=== PATIENT | female | born 1985 | race Caucasian/White ===

== ENCOUNTER 2020-02-02 15:15 | Outpatient (REF) | payer MEDICARE, MEDICAID, SELFPAY ==
[2020-02-02 15:36] LABS: COVID-19 Test Negative (Negative)
== END 2020-02-02 15:16 | disposition home or self-care (01) ==
LOC: HO.LAB 15:15
PROVIDERS: Visit Provider Internal Medicine
DX: Z20.828 Contact with and (suspected) exposure to other viral communicable diseases (principal)
CPT/HCPCS: 87635

== ENCOUNTER 2020-02-06 17:01 | Outpatient (REF) | payer MEDICARE, MEDICAID, SELFPAY ==
[2020-02-06 17:33] LABS: COVID-19 Test Negative (Negative)
== END 2020-02-06 17:02 | disposition home or self-care (01) ==
LOC: HO.LAB 17:01
PROVIDERS: Visit Provider Internal Medicine
DX: Z20.828 Contact with and (suspected) exposure to other viral communicable diseases (principal)
CPT/HCPCS: 87635

== ENCOUNTER 2020-09-02 15:51 | Inpatient (IN) | payer MEDICARE, MEDICAID, SELFPAY ==
[2020-09-02] VITALS (10 sets, daily range): BP systolic 117–148; BP diastolic 54–98; PULSE 90–133; RESP 18–36; TEMP 36.7–37.2; O2SAT 97–100; BMI 36.0
--- NOTE | ~2020-09-02 | XR_ITS ---
EXAMINATION: XR CHEST CLINICAL INFORMATION: Hypoxia. COMPARISON: None TECHNIQUE: 2 views of the chest were obtained. FINDINGS: The lungs are well-expanded with bandlike atelectasis in both lung bases. The upper lungs are clear. The heart size and pulmonary vascularity is normal. No gross bony abnormality seen. XR/XR chest 2V IMPRESSION: Bibasilar atelectasis.
--- NOTE | ~2020-09-02 | XR_ITS ---
EXAMINATION: XR CHEST CLINICAL INFORMATION: SOB COMPARISON: Chest 09/02/2020 TECHNIQUE: Frontal view of the chest was obtained. FINDINGS: No significant abnormality is noted involving the heart, lungs, mediastinum, bony thorax or soft tissues. XR/XR chest 1V IMPRESSION: Unremarkable chest exam.
--- NOTE | ~2020-09-02 | CT_ITS ---
EXAMINATION: CT ANGIOGRAM OF THE CHEST WITH AND WITHOUT CONTRAST (CT PULMONARY ANGIOGRAM FOR PE) CLINICAL INFORMATION: Reason for Exam sob COMPARISON: Chest x-ray 09/02/2020 TECHNIQUE: Prior to contrast administration, noncontrast localization images were obtained. Subsequently, multidetector volumetric imaging was performed from the thoracic inlet to below the diaphragms following the administration of 65 mL Omnipaque 350 intravenous contrast. No contrast reaction reported Sagittal, coronal, and MIP oblique sagittal reformatted images were obtained on the CT workstation, uploaded to PACS, and reviewed. This CT examination was performed using dose optimization techniques as appropriate, variously including the following: *Automated exposure control *Adjustment of mA and/or kV according to patient size (this includes techniques or standardized protocols for targeted exams where dose is matched to indication/reason for exam; i.e. extremities or head) *Use of iterative reconstruction technique Total exam dose-length product 472 mGy-cm FINDINGS: QUALITY OF STUDY/CONTRAST BOLUS: Satisfactory. PULMONARY ARTERIES: No central or segmental pulmonary emboli. Partially limited assessment in some areas due to motion artifact. THORACIC AORTA: No aneurysm or dissection. LUNG: Curvilinear atelectasis noted in the lower lobes. PLEURA: No pleural effusion or pneumothorax. MEDIASTINUM: The visualized thyroid gland is unremarkable. There are subcentimeter mediastinal lymph nodes within the range of normal variation. Cardiac size is within normal limits; no pericardial effusion. No evidence of septal bowing or right heart strain. CHEST WALL/AXILLA: No axillary or internal mammary lymphadenopathy. OSSEOUS STRUCTURES: No acute or suspicious osseous abnormality. UPPER ABDOMEN: Unremarkable. No reflux of contrast into the hepatic veins to suggest elevated right heart pressures. CT/CT angio chest PE protocol IMPRESSION: No pulmonary embolus identified. VTE: negative
--- NOTE | ~2020-09-02 | XR_ITS ---
EXAMINATION: XR CHEST CLINICAL INFORMATION: Cough, wheezing COMPARISON: None TECHNIQUE: 2 views of the chest were obtained. FINDINGS: Devices overlie the patient. Mild rotation toward the right. The mediastinum, shari, vasculature, lungs and visualized pleural margins are within normal limits. XR/XR chest 2V IMPRESSION: No acute chest disease.
--- NOTE | 2020-09-02 16:12 | ED_ITS ---
HPI - Asthma General Chief Complaint: Dyspnea <REBECA Rodriguez - Last Filed: 09/02/20 21:17> Stated Complaint: asthma <REBECA Rodriguez - Last Filed: 09/02/20 21:17> Time Seen by Provider: 09/02/20 16:11 <REBECA Rodriguez Last Filed: 09/02/20 21:17> Source: patient <REBECA Rodriguez Last Filed: 09/02/20 21:17> Mode of arrival: ambulatory <REBECA Rodriguez - Last Filed: 09/02/20 21:17> Limitations: no limitations <REBECA Rodriguez Last Filed: 09/02/20 21:17> History of Present Illness HPI Narrative: 35 y/o female with history of moderate persistent asthma requiring multiple hospitalizations in the past (never intubated) presents to the ER with SOB and wheezing that started yeseterday. Progressively worsening overnight. No relief with PRN albuterol inhaler at home. Has 2 children at home who are sick and they tested negative for COVID yesterday. Congested cough but unable to bring up phlegm. No fevers or chest pain. No N/V/D or abdominal pain. She is tachypenic and wheezey in triage. <REBECA Rodriguez - Last Filed: 09/02/20 21:17> MD complaint: shortness of breath and wheezing <REBECA Rodriguez - Last Filed: 09/02 21:17> Onset (ago): day(s) <REBECA Rodriguez - Last Filed: 09/02/20 21:17> Severity: moderate and similar to prior <REBECA Rodriguez - Last Filed: 09/02/20 21:17> Context: other (sick contacts) <REBECA Rodriguez Last Filed: 09/02/20 21:17> Associated symptoms: productive cough <REBECA Rodriguez Last Filed: 09/02/20 21:17> Asthma History: history of frequent attacks and history of prior ED visit <REBECA Rodriguez Last Filed: 09/02/20 21:17> Treatments Prior to Arrival: inhaled bronchodilator <REBECA Rodriguez Last Filed: 09/02/20 21:17> Related Data Current Asthma Therapy: inhaled bronchodilator <REBECA Rodriguez - Last Filed: 09/02/20 21:17> Allergies/Adverse Reactions: Allergies Allergy/AdvReac Type Severity Reaction Status Date / Time No Known Allergies Allergy Verified 09/02/20 16:10 <REBECA Rodriguez - Last Filed: 09/02/20 21:17> Review of Systems Review of Systems: Constitutional : No Weight loss, No Fever, No Chills, No Night Sweats, No Fatigue, No Malaise ENT/Mouth : No Hearing loss, No Ear Pain, No Nasal Congestion, No Sinus Pain, No Hoarseness, No sore throat, No Rhinorrhea, No Swallowing Difficulty Eyes: No Eye Pain, No Swelling, No Redness, No Foreign Body, No Discharge, No Vision Changes Cardiovascular : No Chest Pain, SOB, Dyspnea on Exertion, No Orthopnea, No Edema, No Palpitations Respiratory : Cough, No Sputum, Wheezing, No Smoke Exposure, No Dyspnea Gastrointestinal : No Nausea, No Vomiting, No Diarrhea, No Constipation, No abdominal Pain, No Hematochezia, No Melena Genitourinary : no irregular bleeding, No Dysuria, No Urinary Frequency, No Hematuria, No Urinary Incontinence, No Urgency, No Flank Pain, No Urinary Flow Changes, No Hesitancy Musculoskeletal : No joint pain, No Myalgias, No Joint Swelling Skin : No Skin Lesions, No rash Neuro : No Weakness, No Numbness, No Paresthesias, No Loss of Consciousness, No Dizziness, No Headache Psych : No Anxiety/Panic, No Depression, No SI/HI/AH/VH, No Social Issues, Heme/Lymph: No Bruising, No Bleeding,No Lymphadenopathy Endocrine : No Polyuria, No Polydipsia, No Temperature Intolerance <XANDER Williamson - Last Filed: 09/02/20 18:07> Yes all other systems are reviewed and are negative <XANDER Williamson - Last Filed: 09/02/20 18:07> [facility] Past Medical History Medical History: Medical History (Updated 09/02/20 @ 21:16 by REBECA Rodriguez) Anxiety Asthma Sleep apnea <REBECA Rodriguez - Last Filed: 09/02/20 21:17> Social History Social History: Social History Alcohol intake: never Smoking Status: Former smoker Use of substances other than those prescribed or required for medical reasons: No Advance Directives: No Advance Directives Information Provided: Yes Patient : No <REBECA Rodriguez - Last Filed: 09/02/20 21:17> Physical Exam Vital Signs: Vital Signs: Last Vital Signs Temp 98.4 F 09/02/20 19:53 Pulse 123 H 09/02/20 21:00 Resp 18 09/02/20 19:53 BP 137/64 09/02/20 19:53 Pulse Ox 99 09/02/20 19:53 Body Mass Index 36.0 <REBECA Rodriguez - Last Filed: 09/02/20 21:17> Vital Signs: Last Vital Signs Temp 98.4 F 09/02/20 19:53 Pulse 123 H 09/02/20 21:00 Resp 18 09/02/20 19:53 BP 137/64 09/02/20 19:53 Pulse Ox 99 09/02/20 19:53 Body Mass Index 36.0 <VERNA WilliamsonP-BC - Last Filed: 09/02/20 18:07> Const: General: healthy appearing, no acute distress and well developed <VERNA WilliamsonP-BC - Last Filed: 09/02/20 18:07> Nutritional Appearance: well nourished <VERNA WilliamsonP-BC - Last Filed: 09/02/20 18:07> Orientation/consciousness: patient oriented x3 <VERNA WilliamsonP-BC - Last Filed: 09/02/20 18:07> Neck: Neck: Yes normal visual inspection, Yes full ROM and Yes trachea midline <FABIANO Williamson-BC - Last Filed: 09/02/20 18:07> Thyroid: Thyroid normal <FABIANO Williamson-BC - Last Filed: 09/02/20 18:07> Resp: Auscultation: wheezes expiratory wheezes, inspiratory wheezes and scattered wheezes <VERNA WilliamsonP-BC - Last Filed: 09/02/20 18:07> Cardio: Rate: regular rate <XANDER Williamson - Last Filed: 09/02/20 18:07> Rhythm: regular rhythm <XANDER Williamson - Last Filed: 09/02/20 18:07> GI: Inspection: Yes normal to inspection and No distended <XANDER Williamson - Last Filed: 09/02/20 18:07> Palpation (GI): No hepatosplenomegaly present <XANDER Williamson - Last Filed: 09/02/20 18:07> Auscultation: normal bowel sounds <XANDER Williamson - Last Filed: 09/02/20 18:07> Skin: General skin exam: elasticity normal, turgor normal and dry skin <XANDER Williamson - Last Filed: 09/02/20 18:07> Neuro: General: patient oriented x3 <XANDER Williamson - Last Filed: 09/02/20 18:07> Course Course Course Narrative: Rapid medical examination: 35 y/o female with history of anxiety, JANETT, moderate persistent asthma, history of multiple hospitalizations (21x) for asthma exacerbations, last 4 years ago who presents with worsening SOB and wheezing that started yesterday and progressively worsened overnight. Kids are sick at home, both tested negative for COVID yesterday. She is not vaccinated. SOB and wheezing at rest with RR 26 on arrival. Coarse throughout with inspiratory wheezes throughout left lung. SpO2 100%. COVID now ordered as well as PO prednisone with plan to start albuterol neb KENNEDY. Plan per Main ED provider. <REBECA Rodriguez - Last Filed: 09/02/20 21:17> Patient examined and re-evaluated. Will change oral prednisone to Solu- Medrol. Will give patient magnesium IV and Tessalon Perles for cough. Check CBC and BMP. Her COVID test is negative. Patient will receive updraft treatment. Will re-evaluate patient after obtaining chest x-ray. <XANDER Williamson - Last Filed: 09/02/20 18:07> Reevaluation(s) Reevaluation #1: 8 pm: patient remains tachypenic with RR low 30's after 2 neb treatments. HR 120's. wheezy and coarse throughout, speaking in 4-5 word sentences with +accessory muscle use. Will give Xopenex treatment and low dose Fentanyl and reassess. She is resistant to BiPAP for a break stating she gets very anxious with it, never tolerates it and ends up pulling it off. <REBECA Rodriguez - Last Filed: 09/02/20 21:17> Address treatment finished. Patient continues to be feeling short of breath. Barking cough O2 sats 100% heart rate up to 120. Will order 2nd treatment, will monitor patient's heart rate. Patient received magnesium, Solu- Medrol and Tessalon Perles continue to monitor <XANDER Williamson - Last Filed: 09/02/20 18:07> Time: 17:25 <XANDER Williamson - Last Filed: 09/02/20 18:07> Reevaluation #2: 9pm: RR 28-30. She states she feels slightly better after Fentanyl. Lung sounds continue to be very coarse. Continued to refuse trial of BiPAP despite multiple attempts at discussing concerns of respiratory fatigue. VBG ordered to make sure she isn't starting to retain CO2. Remains AAO X3. Will give trial of Duoneb. Spoke with Dr. Vzáquez who will admit for further management. <REBECA Rodriguez - Last Filed: 09/02/20 21:17> Patient's heart rate up, she continues to cough despite getting the treatment. Respiratory treatment stopped. Will order more cough suppressant. Guaiafensin and with codeine ordered. Report given to Sahra JOSE. <XANDER Wililamson - Last Filed: 09/02/20 18:07> MDM - Asthma Lab Data Result diagrams: : 09/02/20 16:54 09/02/20 16:54 <REBECA Rodriguez - Last Filed: 09/02/20 21:17> Labs: Lab Results 09/02/20 09/02/20 09/02/20 Range/Units 16:16 16:54 16:54 WBC 8.8 (4.8-10.8) X10*3/uL RBC 4.65 (4.20-5.50) X10*6/uL Hgb 13.7 (12.0-16.0) g/dl Hct 42.1 (37-47) % MCV 90.5 (80-98) fL MCH 29.5 (27.0-33.0) pg MCHC 32.5 (31.0-35.0) g/dl RDW 12.6 (11.0-16.0) % Plt Count 245 (160-400) X10*3/uL MPV 10.7 (9.4-12.3) fL Immature Gran % (Auto) 0.5 H (0.0-0.4) % Neut % (Auto) 71.9 (45-73) % Lymph % (Auto) 15.6 L (20-40) % [place] % (Auto) 8.9 (2-11) % Eos % (Auto) 2.8 (0-4) % Baso % (Auto) 0.3 (0-2) % Lymph # (Auto) 1.4 (1.2-4.9) X10*3/uL [place] # (Auto) 0.8 (0.1-1.2) X10*3/uL Eos # (Auto) 0.3 (0.0-0.4) X10*3/uL Baso # (Auto) 0.0 (0.0-0.2) X10*3/uL Abs Immat Gran (auto) 0.04 H (0.00-0.03) X10*3/uL Absolute Neuts (auto) 6.3 (2.0-8.3) X10*3/uL Absolute Nucleated RBC 0.000 (0.0-0.012) X10*3/uL Nucleated RBC % (auto) 0.0 (0.0-0.2) /100WBC Sodium 140 (135-145) mmol/L Potassium 3.7 (3.3-5.1) mmol/L Chloride 110 H (96-108) mmol/L Carbon Dioxide 21 L (22-29) mmol/L Anion Gap 13 (12-20) BUN 12 (9-16) mg/dL Creatinine 0.84 (0.5-1.4) mg/dL Estim Creat Clear Calc 102.6 Estimated GFR > 60 Random Glucose 88 (60-115) mg/dL Calcium 9.1 (8.4-10.2) mg/dL COVID-19 (HAZEL) Negative (Negative) COVID-19 Clin Com See Note <REBECA Rodriguez - Last Filed: 09/02/20 21:17> Lab Results 09/02/20 09/02/20 09/02/20 Range/Units 16:16 16:54 16:54 WBC 8.8 (4.8-10.8) X10*3/uL RBC 4.65 (4.20-5.50) X10*6/uL Hgb 13.7 (12.0-16.0) g/dl Hct 42.1 (37-47) % MCV 90.5 (80-98) fL MCH 29.5 (27.0-33.0) pg MCHC 32.5 (31.0-35.0) g/dl RDW 12.6 (11.0-16.0) % Plt Count 245 (160-400) X10*3/uL MPV 10.7 (9.4-12.3) fL Immature Gran % (Auto) 0.5 H (0.0-0.4) % Neut % (Auto) 71.9 (45-73) % Lymph % (Auto) 15.6 L (20-40) % [place] % (Auto) 8.9 (2-11) % Eos % (Auto) 2.8 (0-4) % Baso % (Auto) 0.3 (0-2) % Lymph # (Auto) 1.4 (1.2-4.9) X10*3/uL [place] # (Auto) 0.8 (0.1-1.2) X10*3/uL Eos # (Auto) 0.3 (0.0-0.4) X10*3/uL Baso # (Auto) 0.0 (0.0-0.2) X10*3/uL Abs Immat Gran (auto) 0.04 H (0.00-0.03) X10*3/uL Absolute Neuts (auto) 6.3 (2.0-8.3) X10*3/uL Absolute Nucleated RBC 0.000 (0.0-0.012) X10*3/uL Nucleated RBC % (auto) 0.0 (0.0-0.2) /100WBC Sodium 140 (135-145) mmol/L Potassium 3.7 (3.3-5.1) mmol/L Chloride 110 H (96-108) mmol/L Carbon Dioxide 21 L (22-29) mmol/L Anion Gap 13 (12-20) BUN 12 (9-16) mg/dL Creatinine 0.84 (0.5-1.4) mg/dL Estim Creat Clear Calc 102.6 Estimated GFR > 60 Random Glucose 88 (60-115) mg/dL Calcium 9.1 (8.4-10.2) mg/dL COVID-19 (HAZEL) Negative (Negative) COVID-19 Clin Com See Note <XANDER Williamson - Last Filed: 09/02/20 18:07> Imaging Data Chest x-ray: Radiologist's impression: FINDINGS: Devices overlie the patient. Mild rotation toward the right. The mediastinum, shari, vasculature, lungs and visualized pleural margins are within normal limits. XR/XR chest 2V IMPRESSION: No acute chest disease. <XANDER Williamson - Last Filed: 09/02/20 18:07> Critical Care Time Critical Care Time Critical Care Time: Yes <REBECA Rodriguez - Last Filed: 09/02/20 21:17> Total Critical Care Time: 48 <REBECA Rodriguez - Last Filed: 09/02/20 21:17> Attestation: I attest to critical care time spent caring for this patient with severe acute asthma exacerbation, requiring multiple breathing treatments and frequent pulmonary reassessments. <REBECA Rodriguez - Last Filed: 09/02/20 21:17> Discharge Plan Discharge Clinical Impression: Asthma with exacerbation Qualifiers: Asthma severity: moderate Asthma persistence: persistent Qualified Code(s): J45.41 - Moderate persistent asthma with (acute) exacerbation <REBECA Rodriguez - Last Filed: 09/02/20 21:17> Patient Disposition: Admitted As Inpatient <REBECA Rodriguez - Last Filed: 09/02/20 21:17>
[2020-09-02 16:43] LABS: COVID-19 Test Negative (Negative)
[2020-09-02] MEDS: Albuterol Sulfate (0.083%) 2.5 MG/3 ML VIAL.NEB 10 MG INHALE ×2 (16:48→17:45)
[2020-09-02] MEDS: Magnesium Sulfate/H2O 2 GM/50 ML PIGGYBACK IV (16:59)
[2020-09-02] MEDS: methylPREDNISolone Sod Succ 125 MG/2 ML VIAL IVPUSH (16:59)
[2020-09-02] MEDS: Benzonatate 100 MG CAPSULE PO (17:00)
--- NOTE | 2020-09-02 17:05 | PC.NURSE ---
since begining pavan has had slightly decreased work of breathing but continues to use accessory muscles, has tremor, moderate air movement and audible wheezes, loose junky cough and nasal congestion. skin pwd. st on monitor. has never been intubated but multiple hospitalizations.
[2020-09-02 17:07] LABS: MANUAL DIFF FLAG NO
[2020-09-02 17:08] LABS: Basophils Percent Auto 0.3 % (0-2); Eosinophils Absolute Auto 0.3 X10*3/uL (0.0-0.4); Eosinophils Percent Auto 2.8 % (0-4); Hematocrit 42.1 % (37-47); Hemoglobin 13.7 g/dl (12.0-16.0); Imm Gran Abs Auto 0.04 X10*3/uL (0.00-0.03); Imm Gran Pct Auto 0.5 % (0.0-0.4); Lymphocytes Absolute Auto 1.4 X10*3/uL (1.2-4.9); Lymphocytes Percent Auto 15.6 % (20-40); Mean Corpuscular HGB Conc 32.5 g/dl (31.0-35.0); Mean Corpuscular Hemoglobin 29.5 pg (27.0-33.0); Mean Corpuscular Volume 90.5 fL (80-98); Mean Platelet Volume 10.7 fL (9.4-12.3); Monocytes Absolute Auto 0.8 X10*3/uL (0.1-1.2); Monocytes Percent Auto 8.9 % (2-11); Neutrophils Absolute Auto 6.3 X10*3/uL (2.0-8.3); Neutrophils Percent Auto 71.9 % (45-73); Platelet Count 245 X10*3/uL (160-400); Red Blood Count 4.65 X10*6/uL (4.20-5.50); Red Cell Distribution Width 12.6 % (11.0-16.0); White Blood Count 8.8 X10*3/uL (4.8-10.8)
[2020-09-02 17:30] LABS: Anion Gap 13 (12-20); Blood Urea Nitrogen 12 mg/dL (9-16); Calcium 9.1 mg/dL (8.4-10.2); Carbon Dioxide 21 mmol/L (22-29); Chloride 110 mmol/L (96-108); Creatinine Clr Calc Pharmacy 102.6; Estimated Glomerular Filt Rate > 60; Glucose Random 88 mg/dL (60-115); Potassium 3.7 mmol/L (3.3-5.1); Sodium 140 mmol/L (135-145)
--- NOTE | 2020-09-02 17:55 | PC.NURSE ---
During 2nd hr long treatment pt's HR climbing to 150 sinus tach on monitor. [employer]GER and at [facility] for evaluation.
[2020-09-02] MEDS: guaiFEN/Codeine SF 200/20/10ML 10 ML LIQUID PO (18:01)
--- NOTE | 2020-09-02 18:16 | PC.NURSE ---
LS continue to improve. has dry barky cough, st on monitor. alert. less accessory muscle use but still some.
--- NOTE | 2020-09-02 19:57 | PC.NURSE ---
Ambulatory to BR.. staates she's slightly better but still has tachipnea and accessory muscle use. skin pwd. spking full sentences. hoarse cough.
[2020-09-02] MEDS: fentaNYL citrate/PF 100 MCG/2 ML VIAL 25 MCG IVPUSH (20:25)
[2020-09-02] MEDS: Albuterol/Iprat 2.5/0.5MG 3 ML AMPUL.NEB INHALE (21:00)
[2020-09-02 21:19] LABS: VBG Base Excess -8.4 mmol/L; VBG HCO3 12 mmol/L (22-26); VBG pCO2 17 mmHg; VBG pH 7.45 (7.32-7.43); VBG pO2 66 mmHg
[2020-09-02 21:23] LABS: Venous Blood Gas Refer to POC result
--- NOTE | 2020-09-02 22:10 | PC.NURSE ---
only slightly better after fentanyl but continues to be in distess, bronchial hoarse cough, skin pwd. ambulatory to br with increased WOB. AWARE OF PLAN FOR ADMISSION.
[2020-09-02] MEDS: methylPREDNISolone Sod Succ 40 MG/ML VIAL IVPUSH (22:18)
[2020-09-02] MEDS: Morphine Sulfate 4 MG/ML CARTRIDGE IVPUSH (22:19)
--- NOTE | 2020-09-02 22:33 | P.HPHOSP_ITS ---
History of Present Illness Date of Service: 09/02/20 Chief Complaint: sob This is a 35-year-old female with past medical history of asthma, sleep apnea, anxiety who presents to the hospital with difficulty breathing. Patient reports that her kids have been diagnosed with an upper viral infection but have been negative for COVID about a day ago, followed by her developing shortness of breath, wheezing, coughing, congestion and congestion yesterday. She denies any fever and no chills, no chest pain, no palpitations, no headache or change in vision, no abdominal pain nausea or vomiting, no diarrhea or urinary symptoms and no lower extremity edema. On arrival to the ED patient vitals significant for temp of 98.9?, heart rate of 109, respiratory rate of 26, blood pressure of 148/98, satting 99% on room air Labs are significant for pH of 7.45, pCO2 of 17, chloride of 110, bicarb of 21, labs otherwise unremarkable. Chest CT angiogram negative for PE, and no evidence of pneumonia Past medical history as belong confirmed with patient Review of Systems 2 Review of Systems: Yes all other systems are reviewed and are negative [facility] Medical History Anxiety Asthma Sleep apnea Social History Household Members: Significant Other and Children Housing: Apartment Do you presently have visiting nurse or other home services: No Alcohol intake: never Smoking Status: Former smoker Use of substances other than those prescribed or required for medical reasons: No Have you been hit, kicked, punched, or otherwise hurt by someone within the past year? If so, by whom?: No Do you feel safe in your current relationship?: Yes Is there a partner from a previous relationship who is making you feel unsafe now?: No Are you made to feel afraid or neglected: No Advance Directives: No Advance Directives Information Provided: Yes Do you have thoughts of harming others: None Do you have a plan to hurt others: No Plan Recently lost weight without trying: No Nutrition Risks: No Nutritional Risk Patient : No Meds Allergies Allergy/AdvReac Type Severity Reaction Status Date / Time No Known Allergies Allergy Verified 09/02/20 16:10 Active Medications: Current Medications Generic Name Dose Route Start Last Admin Trade Name Freq PRN Reason Stop Dose Admin Albuterol/Ipratropium 3 ml 09/03/20 08:00 Albuterol/Iprat 2.5/0.5mg 3 Ml Ampul.Neb INHALE RQ4H WHILE AWAKE DONELL Albuterol/Ipratropium 3 ml 09/02/20 21:59 Albuterol/Iprat 2.5/0.5mg 3 Ml Ampul.Neb INHALE Q4H PRN Shortness of Breath/Wheezing Guaifenesin/Dextromethorphan 5 ml 09/02/20 21:59 Guaifenesin Dm 100/10/5 Ml 5 Ml Syrup PO Q4H PRN Cough Methylprednisolone Sodium Succinate 40 mg 09/02/20 22:00 09/02/20 22:18 Methylprednisolone Sod Succ 40 Mg/Ml Vial IVPUSH 40 mg Q12H DONELL Administration Home Medications Medication Instructions Recorded Confirmed Last Taken Type L norgest/e.estradiol-e.estrad 1 tab PO DAILY 09/02/20 09/02/20 09/01/20 History [Amethia] albuterol sulfate 2 puff INHALATION QID PRN 09/02/20 09/02/20 09/01/20 History hydroxyzine HCl 1 tab PO TID 09/02/20 09/02/20 09/01/20 History sertraline 1.5 tab PO DAILY 09/02/20 09/02/20 09/01/20 History Physical Exam Vital Signs and Narrative: Vital Signs: Last Vital Signs Temp 98.2 F 09/02/20 22:16 Pulse 112 H 09/02/20 22:16 Resp 33 H 09/02/20 22:16 BP 127/54 L 09/02/20 22:16 Pulse Ox 98 09/02/20 22:16 Body Mass Index 36.0 Const: General: cooperative and no acute distress Orientation/consciou sness: patient oriented x3 Eyes: General: appearance normal, both eyes and all related structures Resp: Other: Significantly tachypneic in the 30s, using accessory muscles to talk Effort & Inspection: abnormal respiratory pattern and Actively coughing Auscultation: wheezes Cardio: Rate: regular rate Rhythm: regular rhythm GI: Palpation (GI): Soft to palpation Auscultation: normal bowel sounds Skin: General skin exam: no rashes or lesions noted Neuro: General: patient oriented x3 Cognition (Neuro): normal cognition Extrem: General: Yes normal to inspection and Yes no pedal edema Results Labs CBC and Chem 7: 09/02/20 16:54 09/02/20 16:54 Labs: Laboratory Results - last 24 hr 09/02/20 09/02/20 09/02/20 16:16 16:54 16:54 MCV 90.5 MCH 29.5 MCHC 32.5 RDW 12.6 Plt Count 245 MPV 10.7 Immature Gran % (Auto) 0.5 H Neut % (Auto) 71.9 Lymph % (Auto) 15.6 L [place] % (Auto) 8.9 Eos % (Auto) 2.8 Baso % (Auto) 0.3 Lymph # (Auto) 1.4 [place] # (Auto) 0.8 Eos # (Auto) 0.3 Baso # (Auto) 0.0 Abs Immat Gran (auto) 0.04 H Absolute Neuts (auto) 6.3 Absolute Nucleated RBC 0.000 Nucleated RBC % (auto) 0.0 VBG pH VBG pCO2 VBG pO2 VBG HCO3 VBG O2 Saturation VBG Base Excess Anion Gap 13 Estim Creat Clear Calc 102.6 Estimated GFR > 60 Random Glucose 88 Calcium 9.1 COVID-19 (HAZEL) Negative COVID-19 Clin Com See Note 09/02/20 21:11 MCV MCH MCHC RDW Plt Count MPV Immature Gran % (Auto) Neut % (Auto) Lymph % (Auto) [place] % (Auto) Eos % (Auto) Baso % (Auto) Lymph # (Auto) [place] # (Auto) Eos # (Auto) Baso # (Auto) Abs Immat Gran (auto) Absolute Neuts (auto) Absolute Nucleated RBC Nucleated RBC % (auto) VBG pH 7.45 H VBG pCO2 17 VBG pO2 66 VBG HCO3 12 L VBG O2 Saturation 92.0 VBG Base Excess -8.4 Anion Gap Estim Creat Clear Calc Estimated GFR Random Glucose Calcium COVID-19 (HAZEL) COVID-19 Clin Com Imaging Radiologist's Impressions: Impressions Chest X-Ray 09/02/20 16:11 IMPRESSION: No acute chest disease. Assessment and Plan (1) Asthma with exacerbation: Qualifiers: Asthma persistence: persistent Asthma severity: moderate Qualified Code(s): J45.41 - Moderate persistent asthma with (acute) exacerbation Status: Acute This is a 35-year-old female with past medical history of asthma who presents to the hospital with wheezing and difficulty breathing # asthma exacerbation - most likely secondary to viral infection given her 2 kids have been recently diagnosed - will start on IV Solu-Medrol, DuoNeb p.r.n. and q.i.d. - monitor respiratory status - currently not requiring any oxygen # anxiety - continue hydroxyzine and sertraline # obstructive sleep apnea - does not use CPAP DVT prophylaxis:lovenox
[2020-09-03] VITALS (11 sets, daily range): BP systolic 103–137; BP diastolic 51–67; PULSE 76–101; RESP 16–34; TEMP 36.3–36.7; O2SAT 95–99
[2020-09-03 00:12] LABS: D Dimer 518 NG/ML
[2020-09-03] MEDS: iohexoL 350 MG/ML 100 ML INFUS..BTL 65 ML IV (01:23)
[2020-09-03] MEDS: guaiFENesin DM 100/10/5 ML 5 ML SYRUP PO ×3 (01:27→17:23)
[2020-09-03] MEDS: Albuterol Sulfate (0.083%) 2.5 MG/3 ML VIAL.NEB INHALE (01:46)
[2020-09-03] MEDS: 0.9 % Sodium Chloride Flush 3 ML SYRINGE IVFLUSH ×3 (02:55→17:19)
[2020-09-03] MEDS: Enoxaparin Sodium 40 MG/0.4 ML SYRINGE SUBCUT (03:08)
[2020-09-03] MEDS: diphenhydrAMINE HCL 50 MG/ML VIAL 25 MG IVPUSH (04:04)
[2020-09-03 07:15] LABS: MANUAL DIFF FLAG NO
[2020-09-03 07:26] LABS: Basophils Percent Auto 0.1 % (0-2); Eosinophils Percent Auto 0.1 % (0-4); Hematocrit 38.9 % (37-47); Hemoglobin 12.5 g/dl (12.0-16.0); Imm Gran Abs Auto 0.09 X10*3/uL (0.00-0.03); Lymphocytes Absolute Auto 0.7 X10*3/uL (1.2-4.9); Lymphocytes Percent Auto 7.7 % (20-40); Mean Corpuscular HGB Conc 32.1 g/dl (31.0-35.0); Mean Corpuscular Hemoglobin 29.3 pg (27.0-33.0); Mean Corpuscular Volume 91.3 fL (80-98); Mean Platelet Volume 10.9 fL (9.4-12.3); Monocytes Absolute Auto 0.2 X10*3/uL (0.1-1.2); Monocytes Percent Auto 2.5 % (2-11); Neutrophils Percent Auto 88.6 % (45-73); Platelet Count 264 X10*3/uL (160-400); Red Blood Count 4.26 X10*6/uL (4.20-5.50); Red Cell Distribution Width 12.9 % (11.0-16.0); White Blood Count 9.1 X10*3/uL (4.8-10.8)
[2020-09-03] MEDS: Albuterol/Iprat 2.5/0.5MG 3 ML AMPUL.NEB INHALE ×4 (07:39→20:04)
[2020-09-03 08:12] LABS: Anion Gap 14 (12-20); Blood Urea Nitrogen 8 mg/dL (9-16); Calcium 8.6 mg/dL (8.4-10.2); Carbon Dioxide 16 mmol/L (22-29); Chloride 111 mmol/L (96-108); Creatinine Clr Calc Pharmacy 118.1; Estimated Glomerular Filt Rate > 60; Glucose Random 160 mg/dL (60-115); Sodium 137 mmol/L (135-145)
--- NOTE | 2020-09-03 08:57 | MHC.CM.PN ---
PATIENT IS INDEPENDENT WITH HER ADLS. NO DME FOR AMBULATION; HOWEVER, SHE DOES HAVE INHALERS AND NEBULIZER. SHE IS HOPING TO BE ABLE TO RETURN HOME WITH NO NEED FOR SERVICES. SIGNIFICANT OTHER (IN ROOM) WILL PROVIDE TRANSPORT AT TIME OF DC. CASE MANAGEMENT TO RETURN FOR COMPLETION OF HCP DOCUMENTATION
[2020-09-03] MEDS: methylPREDNISolone Sod Succ 40 MG/ML VIAL IVPUSH ×2 (09:31→21:01)
[2020-09-03] MEDS: hydrOXYzine HCL 25 MG TABLET PO ×3 (09:33→21:02)
[2020-09-03] MEDS: Sertraline HCL 50 MG TABLET 75 MG PO (09:34)
[2020-09-03] MEDS: Acetaminophen 325 MG TABLET 650 MG PO ×2 (09:39→17:24)
--- NOTE | 2020-09-03 14:13 | HO.PM.IMPN ---
Subjective Subjective Date of Service: 09/03/20 <Migdalia Rivera NP - Last Filed: 09/03/20 14:18> 09/04/20 <Jose Bennett MD - Last Filed: 09/04/20 08:29> Interval History: Follow up asthma exacerbation Still with wheezing and dry cough <Migdalia Rivera NP - Last Filed: 09/03/20 14:18> Physical Exam Vital Signs: Vital Signs: Last Vital Signs Temp 97.5 F 09/03/20 11:55 Pulse 83 09/03/20 11:55 Resp 22 H 09/03/20 11:55 BP 134/67 09/03/20 11:55 Pulse Ox 97 09/03/20 11:55 Body Mass Index 36.0 <Migdalia Rivera NP - Last Filed: 09/03/20 14:18> Appearing in no acute distress lung sounds insp wheezing heart regular rate rhythm, clear S1, S2 positive bowel sounds, abdomen is soft, nontender neuro patient is alert x3, no focal deficits <Migdalia Rivera NP - Last Filed: 09/03/20 14:18> Objective Data Current Medications Generic Name Dose Route Start Last Admin Trade Name Freq PRN Reason Stop Dose Admin Acetaminophen 650 mg 09/03/20 01:51 09/03/20 09:39 Acetaminophen 325 Mg Tablet PO 650 mg Q6H PRN Administration Pain, Mild (Pain Scale 1-3) Albuterol Sulfate 2 puff 09/03/20 01:51 Albuterol Sulfate 90 Mcg 8 Gm Inhaler INHALE RQID PRN wheezing Albuterol/Ipratropium 3 ml 09/03/20 08:00 09/03/20 11:31 Albuterol/Iprat 2.5/0.5mg 3 Ml Ampul.Neb INHALE 3 ml RQ4H WHILE AWAKE DONELL Administration Albuterol/Ipratropium 3 ml 09/02/20 21:59 Albuterol/Iprat 2.5/0.5mg 3 Ml Ampul.Neb INHALE Q4H PRN Shortness of Breath/Wheezing Docusate Sodium 100 mg 09/03/20 01:51 Docusate Sodium 100 Mg Capsule PO DAILY PRN Constipation Enoxaparin Sodium 40 mg 09/03/20 03:00 09/03/20 03:08 Enoxaparin Sodium 40 Mg/0.4 Ml Syringe SUBCUT 40 mg Q24H DONELL Administration Guaifenesin/Dextromethorphan 5 ml 09/02/20 21:59 09/03/20 09:38 Guaifenesin Dm 100/10/5 Ml 5 Ml Syrup PO 5 ml Q4H PRN Administration Cough Hydroxyzine HCl 25 mg 09/03/20 09:00 09/03/20 09:33 Hydroxyzine Hcl 25 Mg Tablet PO 25 mg TID DONELL Administration Methylprednisolone Sodium Succinate 40 mg 09/02/20 22:00 09/03/20 09:31 Methylprednisolone Sod Succ 40 Mg/Ml Vial IVPUSH 40 mg Q12H DONELL Administration Ondansetron HCl 4 mg 09/03/20 01:51 Ondansetron Hcl 4 Mg/2 Ml Vial IVPUSH Q8H PRN Nausea and Vomiting Sertraline HCl 75 mg 09/03/20 09:00 09/03/20 09:34 Sertraline Hcl 50 Mg Tablet PO 75 mg DAILY DONELL Administration Sodium Chloride 3 ml 09/03/20 01:51 09/03/20 09:32 0.9 % Sodium Chloride Flush 3 Ml Syringe IVFLUSH 3 ml QSHIFT DONELL Administration <Migdalia Rivera NP - Last Filed: 09/03/20 14:18> Labs CBC & Chem 7: : 09/03/20 06:48 09/03/20 06:48 <Migdalia Rivera NP - Last Filed: 09/03/20 14:18> Assessment and Plan (1) Asthma with exacerbation: Status: Acute <Migdalia Rivera NP - Last Filed: 09/03/20 14:18> Assessment and Plan: 35-year-old female with past medical history of asthma who presents to the hospital with wheezing and difficulty breathing Asthma exacerbation. Most likely secondary to viral infection given her 2 kids have been recently diagnosed - Continue IV Solu-Medrol, DuoNeb p.r.n. and q.i.d. - oxygen supplementation as needed Anxiety - continue hydroxyzine and sertraline Obstructive sleep apnea - does not use CPAP DVT prophylaxis with Lovenox Attending: Dr. Bennett Full code <Migdalia Rivera NP - Last Filed: 09/03/20 14:18>
[2020-09-03] MEDS: traMADoL HCL 50 MG TABLET 25 MG PO (22:08)
[2020-09-03] MEDS: Melatonin 3 MG TABLET 6 MG PO (22:09)
[2020-09-04] VITALS (11 sets, daily range): BP systolic 108–138; BP diastolic 61–84; PULSE 68–89; RESP 16–18; TEMP 36.1–36.6; O2SAT 92–100
[2020-09-04] MEDS: 0.9 % Sodium Chloride Flush 3 ML SYRINGE IVFLUSH ×4 (02:18→23:58)
[2020-09-04] MEDS: Enoxaparin Sodium 40 MG/0.4 ML SYRINGE SUBCUT (02:18)
[2020-09-04] MEDS: guaiFENesin DM 100/10/5 ML 5 ML SYRUP PO ×3 (02:19→20:08)
[2020-09-04] MEDS: Albuterol/Iprat 2.5/0.5MG 3 ML AMPUL.NEB INHALE ×4 (07:34→20:13)
[2020-09-04] MEDS: hydrOXYzine HCL 25 MG TABLET PO ×3 (08:22→20:03)
[2020-09-04] MEDS: Sertraline HCL 50 MG TABLET 75 MG PO (08:22)
[2020-09-04] MEDS: methylPREDNISolone Sod Succ 40 MG/ML VIAL IVPUSH ×2 (08:25→20:03)
[2020-09-04] MEDS: Acetaminophen 325 MG TABLET 650 MG PO ×2 (09:19→20:08)
--- NOTE | 2020-09-04 10:49 | HO.PM.IMPN ---
Subjective Subjective Date of Service: 09/04/20 Interval History: Follow up asthma exacerbation Still with wheezing and dry cough Physical Exam Vital Signs: Vital Signs: Last Vital Signs Temp 97.4 F 09/04/20 07:55 Pulse 75 09/04/20 07:55 Resp 18 09/04/20 07:55 BP 138/73 09/04/20 07:55 Pulse Ox 92 09/04/20 07:55 Body Mass Index 36.0 Appearing in no acute distress lung sounds exp wheezing heart regular rate rhythm, clear S1, S2 positive bowel sounds, abdomen is soft, nontender neuro patient is alert x3, no focal deficits Objective Data Current Medications Generic Name Dose Route Start Last Admin Trade Name Freq PRN Reason Stop Dose Admin Acetaminophen 650 mg 09/03/20 01:51 09/04/20 09:19 Acetaminophen 325 Mg Tablet PO 650 mg Q6H PRN Administration Pain, Mild (Pain Scale 1-3) Albuterol Sulfate 2 puff 09/03/20 01:51 Albuterol Sulfate 90 Mcg 8 Gm Inhaler INHALE RQID PRN wheezing Albuterol/Ipratropium 3 ml 09/03/20 08:00 09/04/20 07:34 Albuterol/Iprat 2.5/0.5mg 3 Ml Ampul.Neb INHALE 3 ml RQ4H WHILE AWAKE DONELL Administration Albuterol/Ipratropium 3 ml 09/02/20 21:59 Albuterol/Iprat 2.5/0.5mg 3 Ml Ampul.Neb INHALE Q4H PRN Shortness of Breath/Wheezing Docusate Sodium 100 mg 09/03/20 01:51 Docusate Sodium 100 Mg Capsule PO DAILY PRN Constipation Enoxaparin Sodium 40 mg 09/03/20 03:00 09/04/20 02:18 Enoxaparin Sodium 40 Mg/0.4 Ml Syringe SUBCUT 40 mg Q24H DONELL Administration Guaifenesin/Dextromethorphan 5 ml 09/02/20 21:59 09/04/20 02:19 Guaifenesin Dm 100/10/5 Ml 5 Ml Syrup PO 5 ml Q4H PRN Administration Cough Hydroxyzine HCl 25 mg 09/03/20 09:00 09/04/20 08:22 Hydroxyzine Hcl 25 Mg Tablet PO 25 mg TID DONELL Administration Melatonin 6 mg 09/03/20 21:18 09/03/20 22:09 Melatonin 3 Mg Tablet PO 6 mg BEDTIME PRN Administration Insomnia Methylprednisolone Sodium Succinate 40 mg 09/02/20 22:00 09/04/20 08:25 Methylprednisolone Sod Succ 40 Mg/Ml Vial IVPUSH 40 mg Q12H DONELL Administration Ondansetron HCl 4 mg 09/03/20 01:51 Ondansetron Hcl 4 Mg/2 Ml Vial IVPUSH Q8H PRN Nausea and Vomiting Sertraline HCl 75 mg 09/03/20 09:00 09/04/20 08:22 Sertraline Hcl 50 Mg Tablet PO 75 mg DAILY DONELL Administration Sodium Chloride 3 ml 09/03/20 01:51 09/04/20 08:25 0.9 % Sodium Chloride Flush 3 Ml Syringe IVFLUSH 3 ml QSHIFT DONELL Administration Labs CBC & Chem 7: 09/03/20 06:48 09/03/20 06:48 Assessment and Plan (1) Asthma with exacerbation: Status: Acute Assessment and Plan: 35-year-old female with past medical history of asthma who presents to the hospital with wheezing and difficulty breathing Asthma exacerbation. Most likely secondary to viral infection given her 2 kids have been recently diagnosed Still with tightness and wheezing requiring IV steroids and scheduled albuterol - Continue IV Solu-Medrol, DuoNeb p.r.n. and q.i.d. - oxygen supplementation as needed Anxiety - continue hydroxyzine and sertraline Obstructive sleep apnea - does not use CPAP DISPO: Likely home tomorrow when medically stable. DVT prophylaxis with Lovenox Attending: Dr. Bennett Full code
--- NOTE | 2020-09-04 14:43 | MHC.CM.PN ---
PER PHYSICIAN ROUNDS, FARZANA EXPECTED TO RETURN HOME TOMORROW (09/05/20). PLAN IS STILL HOME NO SERVICES.
[2020-09-04] MEDS: Melatonin 3 MG TABLET 6 MG PO (20:07)
[2020-09-05] VITALS (9 sets, daily range): BP systolic 127–140; BP diastolic 69–75; PULSE 73–94; RESP 16–26; TEMP 36.2–36.5; O2SAT 90–94
[2020-09-05] MEDS: Albuterol/Iprat 2.5/0.5MG 3 ML AMPUL.NEB INHALE ×4 (07:25→20:26)
[2020-09-05] MEDS: hydrOXYzine HCL 25 MG TABLET PO ×3 (08:15→19:52)
[2020-09-05] MEDS: Sertraline HCL 50 MG TABLET 75 MG PO (08:17)
[2020-09-05] MEDS: 0.9 % Sodium Chloride Flush 3 ML SYRINGE IVFLUSH ×3 (08:17→19:52)
[2020-09-05] MEDS: methylPREDNISolone Sod Succ 40 MG/ML VIAL IVPUSH ×3 (08:17→19:51)
[2020-09-05] MEDS: Docusate Sodium 100 MG CAPSULE PO (08:23)
[2020-09-05] MEDS: Acetaminophen 325 MG TABLET 650 MG PO ×2 (08:23→14:33)
[2020-09-05] MEDS: guaiFENesin DM 100/10/5 ML 5 ML SYRUP PO ×2 (08:23→19:52)
[2020-09-05] MEDS: polyethylene glycoL 3350 17 GM POWD.PACK PO (08:26)
--- NOTE | 2020-09-05 10:15 | HO.PM.IMPN ---
Subjective Subjective Date of Service: 09/05/20 <Migdalia Rivera NP - Last Filed: 09/05/20 10:18> 09/05/20 <Tristin Callejas MD - Last Filed: 09/05/20 16:25> Interval History: Follow up asthma exacerbation Still with wheezing, dry cough and tightness <Migdalia Rivera NP - Last Filed: 09/05/20 10:18> Physical Exam Vital Signs: Vital Signs: Last Vital Signs Temp 97.2 F 09/05/20 07:49 Pulse 83 09/05/20 07:49 Resp 16 09/05/20 07:49 BP 127/69 09/05/20 07:49 Pulse Ox 92 09/05/20 07:49 Body Mass Index 36.0 <Migdalia Rivera NP - Last Filed: 09/05/20 10:18> Appearing in no acute distress lung sounds insp and exp wheezing heart regular rate rhythm, clear S1, S2 positive bowel sounds, abdomen is soft, nontender neuro patient is alert x3, no focal deficits <Migdalia Rivera NP - Last Filed: 09/05/20 10:18> Objective Data Current Medications Generic Name Dose Route Start Last Admin Trade Name Freq PRN Reason Stop Dose Admin Acetaminophen 650 mg 09/03/20 01:51 09/05/20 08:23 Acetaminophen 325 Mg Tablet PO 650 mg Q6H PRN Administration Pain, Mild (Pain Scale 1-3) Albuterol Sulfate 2 puff 09/03/20 01:51 Albuterol Sulfate 90 Mcg 8 Gm Inhaler INHALE RQID PRN wheezing Albuterol/Ipratropium 3 ml 09/03/20 08:00 09/05/20 07:25 Albuterol/Iprat 2.5/0.5mg 3 Ml Ampul.Neb INHALE 3 ml RQ4H WHILE AWAKE DONELL Administration Albuterol/Ipratropium 3 ml 09/02/20 21:59 Albuterol/Iprat 2.5/0.5mg 3 Ml Ampul.Neb INHALE Q4H PRN Shortness of Breath/Wheezing Azithromycin 500 mg 09/05/20 10:15 Azithromycin 500 Mg Tablet PO Q24H DONELL Docusate Sodium 100 mg 09/03/20 01:51 09/05/20 08:23 Docusate Sodium 100 Mg Capsule PO 100 mg DAILY PRN Administration Constipation Enoxaparin Sodium 40 mg 09/03/20 03:00 09/04/20 23:58 Enoxaparin Sodium 40 Mg/0.4 Ml Syringe SUBCUT Not Given Q24H DONELL Guaifenesin 600 mg 09/05/20 10:15 Guaifenesin [place] 600 Mg Tab.Er.12h PO BID DONELL Guaifenesin/Dextromethorphan 5 ml 09/02/20 21:59 09/05/20 08:23 Guaifenesin Dm 100/10/5 Ml 5 Ml Syrup PO 5 ml Q4H PRN Administration Cough Hydroxyzine HCl 25 mg 09/03/20 09:00 09/05/20 08:15 Hydroxyzine Hcl 25 Mg Tablet PO 25 mg TID DONELL Administration Melatonin 6 mg 09/03/20 21:18 09/04/20 20:07 Melatonin 3 Mg Tablet PO 6 mg BEDTIME PRN Administration Insomnia Methylprednisolone Sodium Succinate 40 mg 09/05/20 09:00 09/05/20 08:27 Methylprednisolone Sod Succ 40 Mg/Ml Vial IVPUSH Not Given TID DONELL Ondansetron HCl 4 mg 09/03/20 01:51 Ondansetron Hcl 4 Mg/2 Ml Vial IVPUSH Q8H PRN Nausea and Vomiting Polyethylene Glycol 17 gm 09/05/20 09:00 09/05/20 08:26 Polyethylene Glycol 3350 17 Gm Powd.Pack PO 17 gm DAILY DONELL Administration Sertraline HCl 75 mg 09/03/20 09:00 09/05/20 08:17 Sertraline Hcl 50 Mg Tablet PO 75 mg DAILY DONELL Administration Sodium Chloride 3 ml 09/03/20 01:51 09/05/20 08:17 0.9 % Sodium Chloride Flush 3 Ml Syringe IVFLUSH 3 ml QSHIFT DONELL Administration <Migdalia Rivera NP - Last Filed: 09/05/20 10:18> Labs CBC & Chem 7: : 09/03/20 06:48 09/03/20 06:48 <Migdalia Rivera NP - Last Filed: 09/05/20 10:18> Assessment and Plan (1) Asthma with exacerbation: Status: Acute <Migdalia Rivera NP - Last Filed: 09/05/20 10:18> Assessment and Plan: 35-year-old female with past medical history of asthma who presents to the hospital with wheezing and difficulty breathing Asthma exacerbation. Most likely secondary to viral infection given her 2 kids have been recently diagnosed Still with tightness and wheezing requiring IV steroids and scheduled albuterol Somewhat better but still with insp and exp wheezing - increase IV Solu-Medrol to TID, DuoNeb p.r.n. and q.i.d. - negative cxr for consolidation - add azithromax, claritin and mucinex for dry cough - oxygen supplementation as needed Anxiety - continue hydroxyzine and sertraline Obstructive sleep apnea - does not use CPAP DISPO: Likely home tomorrow when medically stable. DVT prophylaxis with Lovenox Attending: Dr. Bennett Full code <Migdalia Rivera NP - Last Filed: 09/05/20 10:18>
[2020-09-05] MEDS: Loratadine 10 MG TABLET PO (11:29)
[2020-09-05] MEDS: Azithromycin 500 MG TABLET PO (11:29)
[2020-09-05] MEDS: guaiFENesin LA 600 MG TAB.ER.12H PO ×2 (11:30→19:51)
[2020-09-05] MEDS: Ibuprofen 400 MG TABLET PO (16:53)
[2020-09-05] MEDS: Melatonin 3 MG TABLET 6 MG PO (19:51)
[2020-09-06] VITALS (11 sets, daily range): BP systolic 116–139; BP diastolic 66–79; PULSE 72–89; RESP 15–20; TEMP 36.1–36.3; O2SAT 90–93
[2020-09-06] MEDS: Albuterol/Iprat 2.5/0.5MG 3 ML AMPUL.NEB INHALE ×4 (07:27→19:50)
[2020-09-06] MEDS: Sertraline HCL 50 MG TABLET 75 MG PO (08:42)
[2020-09-06] MEDS: Ibuprofen 400 MG TABLET PO ×2 (08:42→20:43)
[2020-09-06] MEDS: guaiFENesin LA 600 MG TAB.ER.12H PO (08:42)
[2020-09-06] MEDS: Azithromycin 500 MG TABLET PO (08:43)
[2020-09-06] MEDS: Loratadine 10 MG TABLET PO (08:43)
[2020-09-06] MEDS: hydrOXYzine HCL 25 MG TABLET PO ×3 (08:43→20:37)
[2020-09-06] MEDS: methylPREDNISolone Sod Succ 40 MG/ML VIAL IVPUSH (08:43)
[2020-09-06] MEDS: polyethylene glycoL 3350 17 GM POWD.PACK PO (08:43)
[2020-09-06] MEDS: 0.9 % Sodium Chloride Flush 3 ML SYRINGE IVFLUSH ×2 (08:44→15:55)
--- NOTE | 2020-09-06 11:01 | P.PNIM_ITS ---
Subjective Subjective Date of Service: 09/06/20 Interval History: Patient feeling better less short of breath, but still does not feel close to her baseline with persistent shortness of breath worse with activity, dry cough, denies allergy symptoms no recent travel, no new pets. 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 Neck no JVD. CVS regular rate rhythm, Respiratory lungs bilateral expiratory wheeze,and rhonchi. No use of accessory muscles. Gastrointestinal abdomen soft, nontender, bowel sounds audible, no guarding , no rigidity. Extremities no edema. Neuro nonfocal ,speech clear. Skin no rash Objective Data Current Medications Generic Name Dose Route Start Last Admin Trade Name Freq PRN Reason Stop Dose Admin Acetaminophen 650 mg 09/03/20 01:51 09/05/20 14:33 Acetaminophen 325 Mg Tablet PO 650 mg Q6H PRN Administration Pain, Mild (Pain Scale 1-3) Albuterol Sulfate 2 puff 09/03/20 01:51 Albuterol Sulfate 90 Mcg 8 Gm Inhaler INHALE RQID PRN wheezing Albuterol/Ipratropium 3 ml 09/03/20 08:00 09/06/20 07:27 Albuterol/Iprat 2.5/0.5mg 3 Ml Ampul.Neb INHALE 3 ml RQ4H WHILE AWAKE DONELL Administration Albuterol/Ipratropium 3 ml 09/02/20 21:59 Albuterol/Iprat 2.5/0.5mg 3 Ml Ampul.Neb INHALE Q4H PRN Shortness of Breath/Wheezing Azithromycin 500 mg 09/05/20 10:15 09/06/20 08:43 Azithromycin 500 Mg Tablet PO 500 mg Q24H DONELL Administration Docusate Sodium 100 mg 09/03/20 01:51 09/05/20 08:23 Docusate Sodium 100 Mg Capsule PO 100 mg DAILY PRN Administration Constipation Enoxaparin Sodium 40 mg 09/03/20 03:00 09/05/20 19:57 Enoxaparin Sodium 40 Mg/0.4 Ml Syringe SUBCUT Not Given Q24H DONELL Guaifenesin 600 mg 09/05/20 10:15 09/06/20 08:42 Guaifenesin La 600 Mg Tab.Er.12h PO 600 mg BID DONELL Administration Guaifenesin/Dextromethorphan 5 ml 09/02/20 21:59 09/05/20 19:52 Guaifenesin Dm 100/10/5 Ml 5 Ml Syrup PO 5 ml Q4H PRN Administration Cough Hydroxyzine HCl 25 mg 09/03/20 09:00 09/06/20 08:43 Hydroxyzine Hcl 25 Mg Tablet PO 25 mg TID DONELL Administration Ibuprofen 400 mg 09/05/20 15:12 09/06/20 08:42 Ibuprofen 400 Mg Tablet PO 400 mg Q6H PRN Administration Headache Loratadine 10 mg 09/05/20 11:00 09/06/20 08:43 Loratadine 10 Mg Tablet PO 10 mg DAILY DONELL Administration Melatonin 6 mg 09/03/20 21:18 09/05/20 19:51 Melatonin 3 Mg Tablet PO 6 mg BEDTIME PRN Administration Insomnia Methylprednisolone Sodium Succinate 40 mg 09/05/20 09:00 09/06/20 08:43 Methylprednisolone Sod Succ 40 Mg/Ml Vial IVPUSH 40 mg TID DONELL Administration Ondansetron HCl 4 mg 09/03/20 01:51 Ondansetron Hcl 4 Mg/2 Ml Vial IVPUSH Q8H PRN Nausea and Vomiting Polyethylene Glycol 17 gm 09/05/20 09:00 09/06/20 08:43 Polyethylene Glycol 3350 17 Gm Powd.Pack PO 17 gm DAILY DONELL Administration Sertraline HCl 75 mg 09/03/20 09:00 09/06/20 08:42 Sertraline Hcl 50 Mg Tablet PO 75 mg DAILY DONELL Administration Sodium Chloride 3 ml 09/03/20 01:51 09/06/20 08:44 0.9 % Sodium Chloride Flush 3 Ml Syringe IVFLUSH 3 ml QSHIFT DONELL Administration Labs CBC & Chem 7: 09/03/20 06:48 09/03/20 06:48 Assessment and Plan (1) Asthma with exacerbation: Status: Acute Assessment and Plan: 35-year-old female with past medical history of asthma who presents to the [facility] with wheezing and difficulty breathing Acute Asthma exacerbation. Still with tightness and wheezing will continue IV steroids 24 more hours increase dosage, and scheduled and as needed albuterol Chest x-ray showed no consolidation, continue azithromycin to decrease inflammation, continue Claritin and cough medication Encourage out of bed to chair, does not use home inhalers regularly at home last asthma exacerbation 4 years ago Anxiety continue hydroxyzine and sertraline Obstructive sleep apnea does not use CPAP Obesity contributing to obstructive sleep apnea as long recommend to follow low- calorie diet DISPO: Likely home tomorrow when medically stable. DVT prophylaxis with Lovenox
--- NOTE | 2020-09-06 11:28 | MHC.CM.PN ---
PATIENT STILL SOB AND REQUIRING ONE MORE DAY OF IV SOLUMEDROL AND LIKELY RETURN HOME Thursday09/07/20
[2020-09-06] MEDS: methylPREDNISolone Sod Succ 125 MG/2 ML VIAL 60 MG IVPUSH ×2 (14:16→20:37)
[2020-09-06] MEDS: Acetaminophen 325 MG TABLET 650 MG PO (14:19)
[2020-09-06] MEDS: Melatonin 3 MG TABLET 6 MG PO (20:43)
[2020-09-07] VITALS (10 sets, daily range): BP systolic 117–138; BP diastolic 60–82; PULSE 68–104; RESP 18–20; TEMP 36.2–37.1; O2SAT 91–94
[2020-09-07] MEDS: 0.9 % Sodium Chloride Flush 3 ML SYRINGE IVFLUSH ×4 (01:19→20:50)
[2020-09-07 07:11] LABS: Anion Gap 17 (12-20); Blood Urea Nitrogen 22 mg/dL (9-16); Calcium 9.5 mg/dL (8.4-10.2); Carbon Dioxide 22 mmol/L (22-29); Chloride 103 mmol/L (96-108); Creatinine Clr Calc Pharmacy 99.1; Estimated Glomerular Filt Rate > 60; Glucose Random 106 mg/dL (60-115); Potassium 4.6 mmol/L (3.3-5.1); Sodium 137 mmol/L (135-145)
[2020-09-07] MEDS: Albuterol/Iprat 2.5/0.5MG 3 ML AMPUL.NEB INHALE ×3 (08:34→20:37)
[2020-09-07] MEDS: hydrOXYzine HCL 25 MG TABLET PO ×3 (08:57→20:50)
[2020-09-07] MEDS: Sertraline HCL 50 MG TABLET 75 MG PO (08:57)
[2020-09-07] MEDS: Azithromycin 500 MG TABLET PO (08:57)
[2020-09-07] MEDS: polyethylene glycoL 3350 17 GM POWD.PACK PO (08:57)
[2020-09-07] MEDS: methylPREDNISolone Sod Succ 125 MG/2 ML VIAL 60 MG IVPUSH ×3 (08:57→20:50)
[2020-09-07] MEDS: guaiFENesin DM 200/20/10 ML 10 ML SYRUP PO (08:57)
[2020-09-07] MEDS: Loratadine 10 MG TABLET PO (08:57)
[2020-09-07] MEDS: Albuterol Sulfate (0.083%) 2.5 MG/3 ML VIAL.NEB 10 MG INHALE (11:00)
[2020-09-07 11:19] LABS: Adenovirus PCR Not Detected (Not Detect.); Bordetella parapertussis PCR Not Detected (Not Detect.); Bordetella pertussis PCR Not Detected (Not Detect.); Chlamydia pneumoniae PCR Not Detected (Not Detect.); Coronavirus 229E PCR Not Detected (Not Detect.); Coronavirus HKU1 PCR Not Detected (Not Detect.); Coronavirus NL63 PCR Not Detected (Not Detect.); Coronavirus OC43 PCR Not Detected (Not Detect.); Human metapneumovirus PCR Not Detected (Not Detect.); Influenza A PCR Not Detected (Not Detect.); Influenza B PCR Not Detected (Not Detect.); Mycoplasma pneumoniae PCR Not Detected (Not Detect.); Parainfluenza 1 PCR Not Detected (Not Detect.); Parainfluenza 2 PCR Not Detected (Not Detect.); Parainfluenza 3 PCR Not Detected (Not Detect.); Parainfluenza 4 PCR Not Detected (Not Detect.); RSV PCR Not Detected (Not Detect.); SARS-CoV-2 PCR Not Detected (Not Detect.)
--- NOTE | 2020-09-07 11:45 | P.PNIM_ITS ---
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 Neck no JVD. CVS regular rate rhythm, Respiratory lungs bilateral expiratory wheeze,and rhonchi. No use of accessory muscles. Gastrointestinal abdomen soft, nontender, bowel sounds audible, no guarding , no rigidity. Extremities no edema. Neuro nonfocal ,speech clear. Skin no rash Objective Data Current Medications Generic Name Dose Route Start Last Admin Trade Name Freq PRN Reason Stop Dose Admin Acetaminophen 650 mg 09/03/20 01:51 09/06/20 14:19 Acetaminophen 325 Mg Tablet PO 650 mg Q6H PRN Administration Pain, Mild (Pain Scale 1-3) Albuterol Sulfate 2 puff 09/03/20 01:51 Albuterol Sulfate 90 Mcg 8 Gm Inhaler INHALE RQID PRN wheezing Albuterol/Ipratropium 3 ml 09/03/20 08:00 09/07/20 08:34 Albuterol/Iprat 2.5/0.5mg 3 Ml Ampul.Neb INHALE 3 ml RQ4H WHILE AWAKE DONELL Administration Albuterol/Ipratropium 3 ml 09/02/20 21:59 Albuterol/Iprat 2.5/0.5mg 3 Ml Ampul.Neb INHALE Q4H PRN Shortness of Breath/Wheezing Docusate Sodium 100 mg 09/03/20 01:51 09/05/20 08:23 Docusate Sodium 100 Mg Capsule PO 100 mg DAILY PRN Administration Constipation Doxycycline Hyclate 100 mg 09/07/20 11:00 Doxycycline Hyclate 100 Mg Tablet PO Q12H DONELL Enoxaparin Sodium 40 mg 09/03/20 03:00 09/07/20 03:27 Enoxaparin Sodium 40 Mg/0.4 Ml Syringe SUBCUT Not Given Q24H [facility] Fluticasone/Vilanterol 1 puff 09/08/20 08:00 Fluticasone/Vilanterol 200/25 Blst.W.Dev INHALE RDAILY DONELL Guaifenesin/Dextromethorphan 5 ml 09/02/20 21:59 09/05/20 19:52 Guaifenesin Dm 100/10/5 Ml 5 Ml Syrup PO 5 ml Q4H PRN Administration Cough Guaifenesin/Dextromethorphan 10 ml 09/06/20 11:09 09/07/20 08:57 Guaifenesin Dm 200/20/10 Ml 10 Ml Syrup PO 10 ml Q6H PRN Administration cough Hydroxyzine HCl 25 mg 09/03/20 09:00 09/07/20 08:57 Hydroxyzine Hcl 25 Mg Tablet PO 25 mg TID DONELL Administration Magnesium Sulfate 2 gm in 50 mls @ 25 mls/hr 09/07/20 10:53 IV 09/07/20 12:52 ONCE ONE Ibuprofen 400 mg 09/05/20 15:12 09/06/20 20:43 Ibuprofen 400 Mg Tablet PO 400 mg Q6H PRN Administration Headache Loratadine 10 mg 09/05/20 11:00 09/07/20 08:57 Loratadine 10 Mg Tablet PO 10 mg DAILY DONELL Administration Melatonin 6 mg 09/03/20 21:18 09/06/20 20:43 Melatonin 3 Mg Tablet PO 6 mg BEDTIME PRN Administration Insomnia Methylprednisolone Sodium Succinate 60 mg 09/06/20 15:00 09/07/20 08:57 Methylprednisolone Sod Succ 125 Mg/2 Ml Vial IVPUSH 60 mg TID DONELL Administration Ondansetron HCl 4 mg 09/03/20 01:51 Ondansetron Hcl 4 Mg/2 Ml Vial IVPUSH Q8H PRN Nausea and Vomiting Polyethylene Glycol 17 gm 09/05/20 09:00 09/07/20 08:57 Polyethylene Glycol 3350 17 Gm Powd.Pack PO 17 gm DAILY DONELL Administration Sertraline HCl 75 mg 09/03/20 09:00 09/07/20 08:57 Sertraline Hcl 50 Mg Tablet PO 75 mg DAILY DONELL Administration Sodium Chloride 3 ml 09/03/20 01:51 09/07/20 08:57 0.9 % Sodium Chloride Flush 3 Ml Syringe IVFLUSH 3 ml QSHIFT DONELL Administration Tiotropium [place] 1 puff 09/08/20 08:00 Tiotropium [place] 18 Mcg Cap.W.Dev INHALE RDAILY [facility] Labs CBC & Chem 7: 09/03/20 06:48 09/07/20 06:08 Assessment and Plan (1) Acute respiratory failure with hypoxia: Status: Acute (2) Asthma with exacerbation: Status: Acute Assessment and Plan: 35-year-old female with past medical history of asthma who presents to the hospital with wheezing and difficulty breathing, patient kids were recently diagnosed to have have upper respiratory infection, patient kids were diagnosed to have upper viral infection and had negative COVID test. Acute hypoxic respiratory failure with Acute Asthma exacerbation. Still with tightness and wheezing , oxygenation dropped to 90 overnight currently on 2 L of oxygen On IV steroids 60 mg q.6 hours, scheduled and as needed albuterol q.4 hours, on azithromycin day 3, Claritin and cough medication CTA chest negative on admission, done due to a D-dimer of 518, COVID test negative Will repeat chest x-ray two view, obtain pulmonology consultation encouraged to use incentive spirometry out of bed to chair does not use home inhalers regularly at home last asthma exacerbation 4 years ago Anxiety continue hydroxyzine and sertraline Obstructive sleep apnea does not use CPAP Obesity contributing to obstructive sleep apnea , recommend to follow low- calorie diet DISPO: home when medically stable. DVT prophylaxis with Lovenox
[2020-09-07 12:17] LABS: Rhino/Enterovirus PCR Detected (Not Detect.)
[2020-09-07] MEDS: Magnesium Sulfate/H2O 2 GM/50 ML PIGGYBACK IV (12:28)
[2020-09-07] MEDS: guaiFENesin DM 100/10/5 ML 5 ML SYRUP PO (12:28)
--- NOTE | 2020-09-07 12:34 | P.CONPL_ITS ---
History of Present Illness History of Present Illness Consult date: 09/07/20 Chief complaint: asthma exacerbation Narrative: This is a 35-year-old female with past medical history of asthma, sleep apnea, anxiety who presents to the hospital with difficulty breathing. Patient reports that her kids have been diagnosed with an upper viral infection but have been negative for COVID about a day ago, followed by her developing shortness of breath, wheezing, coughing, congestion and congestion yesterday. She denies any fever and no chills, no chest pain, no palpitations, no headache or change in vision, no abdominal pain nausea or vomiting, no diarrhea or urinary symptoms and no lower extremity edema. On arrival to the ED patient vitals significant for temp of 98.9?, heart rate of 109, respiratory rate of 26, blood pressure of 148/98, satting 99% on room air. Chest CT angiogram personally reviewed by mewith negative for PE, and no evidence of pneumonia. +hiatal hernia. In the hospital she continues with a croupy cough and significant wheezing, slow to recover. Review of Systems Constitutional: Constitutional: Denies night sweats ENT: Denies change in voice, Denies lip swelling, Denies mouth pain, Reports nasal congestion, Reports nasal discharge and Denies tongue swelling Cardiovascular: Cardiovascular: Denies chest pain and Reports dyspnea Respiratory: Respiratory: Reports cough, Reports dyspnea and Reports wheezing Gastrointestinal: Gastrointestinal: Denies abdominal pain Musculoskeletal: Musculoskeletal: Denies no additional musculoskeletal complaints Neurologic: Denies Neuro-related abnormal movements Psychiatric: Psychiatric: Denies no additional psychiatric complaints Hematologic/Lymphatic: Hematologic/Lymphatic: Denies easy bleeding and Denies lymphadenopathy Allergic/Immunologic: Allergic/Immunologic: Denies lip swelling, Denies tongue swelling and Reports wheezing PMFSH Past Medical History Medical History Anxiety Asthma Sleep apnea Social History Social History Household Members: Significant Other and Children Housing: Apartment Do you presently have visiting nurse or other home services: No Alcohol intake: never Use of substances other than those prescribed or required for medical reasons: No Currently Displaying Signs/Symptoms of Drug Intoxication Withdrawal: No Have you been hit, kicked, punched, or otherwise hurt by someone within the past year? If so, by whom?: No Do you feel safe in your current relationship?: Yes Is there a partner from a previous relationship who is making you feel unsafe now?: No Are you made to feel afraid or neglected: No Advance Directives: No Advance Directives Information Provided: Yes Do you have thoughts of harming others: None Do you have a plan to hurt others: No Plan Recently lost weight without trying: No Nutrition Risks: No Nutritional Risk Patient : No Meds Allergies Allergy/AdvReac Type Severity Reaction Status Date / Time No Known Allergies Allergy Verified 09/02/20 16:10 Active Medications: Current Medications Generic Name Dose Route Start Last Admin Trade Name Freq PRN Reason Stop Dose Admin Acetaminophen 650 mg 09/03/20 01:51 09/06/20 14:19 Acetaminophen 325 Mg Tablet PO 650 mg Q6H PRN Administration Pain, Mild (Pain Scale 1-3) Albuterol Sulfate 2 puff 09/03/20 01:51 Albuterol Sulfate 90 Mcg 8 Gm Inhaler INHALE RQID PRN wheezing Albuterol/Ipratropium 3 ml 09/03/20 08:00 09/07/20 08:34 Albuterol/Iprat 2.5/0.5mg 3 Ml Ampul.Neb INHALE 3 ml RQ4H WHILE AWAKE DONELL Administration Albuterol/Ipratropium 3 ml 09/02/20 21:59 Albuterol/Iprat 2.5/0.5mg 3 Ml Ampul.Neb INHALE Q4H PRN Shortness of Breath/Wheezing Docusate Sodium 100 mg 09/03/20 01:51 09/05/20 08:23 Docusate Sodium 100 Mg Capsule PO 100 mg DAILY PRN Administration Constipation Doxycycline Hyclate 100 mg 09/07/20 11:00 09/07/20 12:22 Doxycycline Hyclate 100 Mg Tablet PO 100 mg Q12H DONELL Administration Enoxaparin Sodium 40 mg 09/03/20 03:00 09/07/20 03:27 Enoxaparin Sodium 40 Mg/0.4 Ml Syringe SUBCUT Not Given Q24H DONELL Fluticasone/Vilanterol 1 puff 09/08/20 08:00 Fluticasone/Vilanterol 200/25 Blst.W.Dev INHALE RDAILY DONELL Guaifenesin/Dextromethorphan 5 ml 09/02/20 21:59 09/07/20 12:28 Guaifenesin Dm 100/10/5 Ml 5 Ml Syrup PO 5 ml Q4H PRN Administration Cough Guaifenesin/Dextromethorphan 10 ml 09/06/20 11:09 09/07/20 08:57 Guaifenesin Dm 200/20/10 Ml 10 Ml Syrup PO 10 ml Q6H PRN Administration cough Hydroxyzine HCl 25 mg 09/03/20 09:00 09/07/20 08:57 Hydroxyzine Hcl 25 Mg Tablet PO 25 mg TID DONELL Administration Magnesium Sulfate 2 gm in 50 mls @ 25 mls/hr 09/07/20 10:53 09/07/20 12:28 IV 09/07/20 12:52 25 mls/hr ONCE ONE Administration Ibuprofen 400 mg 09/05/20 15:12 09/06/20 20:43 Ibuprofen 400 Mg Tablet PO 400 mg Q6H PRN Administration Headache Loratadine 10 mg 09/05/20 11:00 09/07/20 08:57 Loratadine 10 Mg Tablet PO 10 mg DAILY DONELL Administration Melatonin 6 mg 09/03/20 21:18 09/06/20 20:43 Melatonin 3 Mg Tablet PO 6 mg BEDTIME PRN Administration Insomnia Methylprednisolone Sodium Succinate 60 mg 09/06/20 15:00 09/07/20 08:57 Methylprednisolone Sod Succ 125 Mg/2 Ml Vial IVPUSH 60 mg TID DONELL Administration Ondansetron HCl 4 mg 09/03/20 01:51 Ondansetron Hcl 4 Mg/2 Ml Vial IVPUSH Q8H PRN Nausea and Vomiting Polyethylene Glycol 17 gm 09/05/20 09:00 09/07/20 08:57 Polyethylene Glycol 3350 17 Gm Powd.Pack PO 17 gm DAILY DONELL Administration Sertraline HCl 75 mg 09/03/20 09:00 09/07/20 08:57 Sertraline Hcl 50 Mg Tablet PO 75 mg DAILY DONELL Administration Sodium Chloride 3 ml 09/03/20 01:51 09/07/20 08:57 0.9 % Sodium Chloride Flush 3 Ml Syringe IVFLUSH 3 ml QSHIFT DONELL Administration Tiotropium [place] 1 puff 09/08/20 08:00 Tiotropium [place] 18 Mcg Cap.W.Dev INHALE RDAILY [facility] Home Medications Medication Instructions Recorded Confirmed Last Taken Type L norgest/e.estradiol-e.estrad 1 tab PO DAILY 09/02/20 09/02/20 09/01/20 History [Amethia] albuterol sulfate 2 puff INHALATION QID PRN 09/02/20 09/02/20 09/01/20 History hydroxyzine HCl 1 tab PO TID 09/02/20 09/02/20 09/01/20 History sertraline 1.5 tab PO DAILY 09/02/20 09/02/20 09/01/20 History ergocalciferol (vitamin D2) 1 cap PO QWEEK 09/03/20 09/03/20 Unknown History Physical Exam Vital Signs: Vital Signs: Last Vital Signs Temp 97.4 F 09/07/20 11:37 Pulse 104 H 09/07/20 11:37 Resp 20 09/07/20 11:37 BP 138/81 09/07/20 11:37 Pulse Ox 92 09/07/20 11:37 Body Mass Index 36.0 Const: General: alert Neck: Neck: Yes normal visual inspection, Yes full ROM and Yes no lymphadenopathy Chest: Chest palpation & inspection: normal inspection of the chest Resp: Auscultation: wheezes and diminished lung sounds Cardio: Rate: regular rate Rhythm: regular rhythm Heart sounds: S1 normal heart sound present and S2 normal heart sound present GI: Palpation (GI): Soft to palpation and nontender Auscultation: normal bowel sounds : General: Yes no CVA tenderness Back/Spine/Pelvis: Back: no CVA tenderness Skin: General skin exam: rashes and/or lesions noted Results Laboratory Findings CBC and BMP: 09/03/20 06:48 09/07/20 06:08 ABG, PT/INR, D-dimer: PT/INR, D-dimer D-Dimer 518 NG/ML 09/02/20 23:46 Abnormal lab findings: Abnormal Labs 09/02/20 09/02/20 09/02/20 16:54 16:54 21:11 Immature Gran % (Auto) 0.5 H Neut % (Auto) Lymph % (Auto) 15.6 L Lymph # (Auto) Abs Immat Gran (auto) 0.04 H VBG pH 7.45 H VBG HCO3 12 L Chloride 110 H Carbon Dioxide 21 L BUN Random Glucose Entero/Rhino (PCR) 09/03/20 09/03/20 09/07/20 06:48 06:48 06:08 Immature Gran % (Auto) 1.0 H Neut % (Auto) 88.6 H Lymph % (Auto) 7.7 L Lymph # (Auto) 0.7 L Abs Immat Gran (auto) 0.09 H VBG pH VBG HCO3 Chloride 111 H Carbon Dioxide 16 L BUN 8 L 22 H D Random Glucose 160 H D Entero/Rhino (PCR) 09/07/20 11:07 Immature Gran % (Auto) Neut % (Auto) Lymph % (Auto) Lymph # (Auto) Abs Immat Gran (auto) VBG pH VBG HCO3 Chloride Carbon Dioxide BUN Random Glucose Entero/Rhino (PCR) Detected A Assessment and Plan (1) Asthma with exacerbation: Qualifiers: Asthma persistence: persistent Asthma severity: moderate Qualified Code(s): J45.41 - Moderate persistent asthma with (acute) exacerbation Status: Acute (2) Viral syndrome: Status: Acute respiratory viral panel D/C azithromycin Add Doxycycline 10 mg albuterol now x1 Magnesium 2gm IV x 1 Continue Solumedrol Duonebs q4 Add mucinex DM Procedures Date of Service Date of Service: 09/07/20
[2020-09-07] MEDS: guaiFENesin DM 600/30 1 TAB TAB.ER.12H 2 TAB PO ×2 (14:09→20:50)
[2020-09-07] MEDS: Ibuprofen 400 MG TABLET PO (21:29)
[2020-09-08] VITALS (10 sets, daily range): BP systolic 129–147; BP diastolic 65–80; PULSE 67–89; RESP 16–92; TEMP 35.9–36.6; O2SAT 90–94
[2020-09-08] MEDS: Fluticasone/Vilanterol 200/25 BLST.W.DEV 1 PUFF INHALE (07:14)
[2020-09-08] MEDS: Albuterol/Iprat 2.5/0.5MG 3 ML AMPUL.NEB INHALE ×4 (07:14→19:51)
[2020-09-08] MEDS: hydrOXYzine HCL 25 MG TABLET PO ×3 (09:09→20:56)
[2020-09-08] MEDS: guaiFENesin DM 600/30 1 TAB TAB.ER.12H 2 TAB PO ×2 (09:09→20:56)
[2020-09-08] MEDS: 0.9 % Sodium Chloride Flush 3 ML SYRINGE IVFLUSH ×3 (09:09→20:57)
[2020-09-08] MEDS: methylPREDNISolone Sod Succ 125 MG/2 ML VIAL 60 MG IVPUSH ×3 (09:09→20:56)
[2020-09-08] MEDS: Loratadine 10 MG TABLET PO (09:09)
[2020-09-08] MEDS: polyethylene glycoL 3350 17 GM POWD.PACK PO (09:10)
[2020-09-08] MEDS: Sertraline HCL 50 MG TABLET 75 MG PO (09:10)
--- NOTE | 2020-09-08 12:04 | P.PNIM_ITS ---
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 Neck no JVD. CVS regular rate rhythm, Respiratory lungs bilateral expiratory wheeze,and rhonchi. No use of accessory muscles. Gastrointestinal abdomen soft, nontender, bowel sounds audible, no guarding , no rigidity. Extremities no edema, normal ankle and joint examination. Neuro nonfocal ,speech clear. Skin no rash Objective Data Current Medications Generic Name Dose Route Start Last Admin Trade Name Freq PRN Reason Stop Dose Admin Acetaminophen 650 mg 09/03/20 01:51 09/06/20 14:19 Acetaminophen 325 Mg Tablet PO 650 mg Q6H PRN Administration Pain, Mild (Pain Scale 1-3) Albuterol Sulfate 2 puff 09/03/20 01:51 Albuterol Sulfate 90 Mcg 8 Gm Inhaler INHALE RQID PRN wheezing Albuterol/Ipratropium 3 ml 09/03/20 08:00 09/08/20 11:08 Albuterol/Iprat 2.5/0.5mg 3 Ml Ampul.Neb INHALE 3 ml RQ4H WHILE AWAKE DONELL Administration Albuterol/Ipratropium 3 ml 09/02/20 21:59 Albuterol/Iprat 2.5/0.5mg 3 Ml Ampul.Neb INHALE Q4H PRN Shortness of Breath/Wheezing Docusate Sodium 100 mg 09/03/20 01:51 09/05/20 08:23 Docusate Sodium 100 Mg Capsule PO 100 mg DAILY PRN Administration Constipation Doxycycline Hyclate 100 mg 09/07/20 11:00 09/08/20 11:58 Doxycycline Hyclate 100 Mg Tablet PO 100 mg Q12H DONELL Administration Enoxaparin Sodium 40 mg 09/03/20 03:00 09/08/20 03:39 Enoxaparin Sodium 40 Mg/0.4 Ml Syringe SUBCUT Not Given Q24H DONELL Fluticasone/Vilanterol 1 puff 09/08/20 08:00 09/08/20 07:14 Fluticasone/Vilanterol 200/25 Blst.W.Dev INHALE 1 puff RDAILY DONELL Administration Guaifenesin/Dextromethorphan 5 ml 09/02/20 21:59 09/07/20 12:28 Guaifenesin Dm 100/10/5 Ml 5 Ml Syrup PO 5 ml Q4H PRN Administration Cough Guaifenesin/Dextromethorphan 2 tab 09/07/20 12:45 09/08/20 09:09 Guaifenesin Dm 600/30 1 Tab Tab.Er.12h PO 2 tab BID DONELL Administration Hydroxyzine HCl 25 mg 09/03/20 09:00 09/08/20 09:09 Hydroxyzine Hcl 25 Mg Tablet PO 25 mg TID DONELL Administration Ibuprofen 400 mg 09/05/20 15:12 09/07/20 21:29 Ibuprofen 400 Mg Tablet PO 400 mg Q6H PRN Administration Headache Loratadine 10 mg 09/05/20 11:00 09/08/20 09:09 Loratadine 10 Mg Tablet PO 10 mg DAILY DONELL Administration Melatonin 6 mg 09/03/20 21:18 09/06/20 20:43 Melatonin 3 Mg Tablet PO 6 mg BEDTIME PRN Administration Insomnia Methylprednisolone Sodium Succinate 60 mg 09/06/20 15:00 09/08/20 09:09 Methylprednisolone Sod Succ 125 Mg/2 Ml Vial IVPUSH 60 mg TID DONELL Administration Ondansetron HCl 4 mg 09/03/20 01:51 Ondansetron Hcl 4 Mg/2 Ml Vial IVPUSH Q8H PRN Nausea and Vomiting Polyethylene Glycol 17 gm 09/05/20 09:00 09/08/20 09:10 Polyethylene Glycol 3350 17 Gm Powd.Pack PO 17 gm DAILY DONELL Administration Sertraline HCl 75 mg 09/03/20 09:00 09/08/20 09:10 Sertraline Hcl 50 Mg Tablet PO 75 mg DAILY DONELL Administration Sodium Chloride 3 ml 09/03/20 01:51 09/08/20 09:09 0.9 % Sodium Chloride Flush 3 Ml Syringe IVFLUSH 3 ml QSHIFT DONELL Administration Tiotropium [place] 1 puff 09/08/20 08:00 09/08/20 07:14 Tiotropium [place] 18 Mcg Cap.W.Dev INHALE 1 puff RDAILY DONELL Administration Labs CBC & Chem 7: 09/03/20 06:48 09/07/20 06:08 Assessment and Plan (1) Viral syndrome: Status: Acute (2) Acute respiratory failure with hypoxia: Status: Acute (3) Asthma with exacerbation: Status: Acute Assessment and Plan: 35-year-old female with past medical history of asthma who presents to the hospital with wheezing and difficulty breathing, patient kids were recently diagnosed to have have upper respiratory infection, patient kids were diagnosed to have upper viral infection and had negative COVID test. Acute hypoxic respiratory failure with Acute Asthma exacerbation related to v iral syndrome. Persistent shortness of breath chest tightness and congested cough Remains hypoxic on 3 L of oxygen Repeat chest x-ray showed bilateral atelectasis Will continue IV steroids 60 mg q.6 hours, scheduled and as needed albuterol q.4 hours, and doxycycline day 2 (received 3 days of azithromycin) ,cont cough syp CTA chest negative on admission, done due to a D-dimer of 518, COVID test ne gative Due to persistent symptoms was seen by Dr. Rivera receive 1 hour long updraft treatment IV magnesium, respiratory viral panel positive for Rhino and enetro (patient children were sick) Breo and Spiriva were added Encourage out of bed to chair and incentive spirometry, wean oxygen gradually possible discharge home on by mouth steroids Home O2 eval once clinically improved Anxiety continue hydroxyzine and sertraline Obstructive sleep apnea does not use CPAP at home Obesity contributing to obstructive sleep apnea , recommend to follow low- calorie diet DISPO: home when medically stable. DVT prophylaxis with Lovenox
[2020-09-08] MEDS: Melatonin 3 MG TABLET 6 MG PO (22:57)
[2020-09-09] VITALS (10 sets, daily range): BP systolic 129–146; BP diastolic 68–84; PULSE 64–97; RESP 12–18; TEMP 35.9–36.5; O2SAT 92–95
[2020-09-09] MEDS: Albuterol/Iprat 2.5/0.5MG 3 ML AMPUL.NEB INHALE ×4 (07:34→19:47)
[2020-09-09] MEDS: Fluticasone/Vilanterol 200/25 BLST.W.DEV 1 PUFF INHALE (07:35)
[2020-09-09] MEDS: Loratadine 10 MG TABLET PO (09:03)
[2020-09-09] MEDS: Sertraline HCL 50 MG TABLET 75 MG PO (09:03)
[2020-09-09] MEDS: 0.9 % Sodium Chloride Flush 3 ML SYRINGE IVFLUSH ×3 (09:03→20:08)
[2020-09-09] MEDS: hydrOXYzine HCL 25 MG TABLET PO ×3 (09:03→20:04)
[2020-09-09] MEDS: guaiFENesin DM 600/30 1 TAB TAB.ER.12H 2 TAB PO ×2 (09:03→20:04)
[2020-09-09] MEDS: methylPREDNISolone Sod Succ 125 MG/2 ML VIAL 60 MG IVPUSH (09:04)
[2020-09-09] MEDS: polyethylene glycoL 3350 17 GM POWD.PACK PO (09:05)
--- NOTE | 2020-09-09 10:53 | PM.PNPUL ---
Subjective Subjective Date of Service: 09/09/20 Interval history: Seen and examined. Doing little better. Still having a hard time expectorating. Objective Data Labs CBC & Chem 7: 09/03/20 06:48 09/07/20 06:08 Review of Systems Constitutional: Denies night sweats Denies change in voice, Denies lip swelling, Denies mouth pain, Reports nasal congestion, Reports nasal discharge and Denies tongue swelling Cardiovascular: Denies chest pain and Reports dyspnea Respiratory: Reports cough, Reports dyspnea and Reports wheezing Gastrointestinal: Denies abdominal pain Musculoskeletal: Denies no additional musculoskeletal complaints Denies Neuro-related abnormal movements Psychiatric: Denies no additional psychiatric complaints Hematologic/Lymphatic: Denies easy bleeding and Denies lymphadenopathy Allergic/Immunologic: Denies lip swelling, Denies tongue swelling and Reports wheezing Physical Exam Vital Signs: Vital Signs: Last Vital Signs Temp 96.8 F 09/09/20 08:00 Pulse 80 09/09/20 08:00 Resp 18 09/09/20 08:00 BP 133/68 09/09/20 08:00 Pulse Ox 94 09/09/20 08:00 Body Mass Index 36.0 Const: General: alert Eyes: Pupils: Equal, round and reactive pupils present Neck: Neck: Yes normal visual inspection, Yes full ROM and Yes no lymphadenopathy Chest: Chest palpation & inspection: normal inspection of the chest Resp: Auscultation: wheezes and diminished lung sounds Cardio: Rate: regular rate Rhythm: regular rhythm Heart sounds: S1 normal heart sound present and S2 normal heart sound present Skin: General skin exam: rashes and/or lesions noted Neuro: Cranial nerves: Yes Equal, round and reactive pupils present Procedures Date of Service Date of Service: 09/09/20 Assessment and Plan Assessment and plan (1) Viral syndrome: Status: Acute (2) Acute respiratory failure with hypoxia: Status: Acute (3) Asthma with exacerbation: Status: Acute Assessment and Plan: Overall improving, but slowly REC: Add acapella valve Decrease Solumedrol 40mg TID Complete 8 days of Doxy Hopefully can be weaned off the O2 once she starts expectorating Time Spent With Patient Time: Total time spent is greater than 50% in coordination of care (as documented) at patient's floor/unit and/or counseling patient: Time with patient: 15 - 24 minutes
--- NOTE | 2020-09-09 11:33 | P.PNIM_ITS ---
Subjective Subjective Date of Service: 09/09/20 Interval History: Seen in follow-up for acute hypoxic respiratory failure due to asthma exacerbation. She feels the same. O2 saturation about 93% on 3 L Review of Systems Gen: no fever Resp: + sob, +cough and wheezing CV: no chest, no URENA, no leg edema GI: No n/v, no abd pain Neuro: No confusion Physical Exam Vital Signs: Vital Signs: Last Vital Signs Temp 97.7 F 09/09/20 11:21 Pulse 77 09/09/20 11:21 Resp 12 09/09/20 11:21 BP 129/69 09/09/20 11:21 Pulse Ox 92 09/09/20 11:21 Body Mass Index 36.0 Const: Other: General: AO X 3, no acute distress Resp: wheezing alma, no accessorymuscle use, speaks in full sentences CVS: S1,S2,RRR GI: +BS, NT, no distention Skin: No rash Neuro: motor grossly intact Psych: appropriate affect Objective Data Current Medications Generic Name Dose Route Start Last Admin Trade Name Lexi PRN Reason Stop Dose Admin Acetaminophen 650 mg 09/03/20 01:51 09/06/20 14:19 Acetaminophen 325 Mg Tablet PO 650 mg Q6H PRN Administration Pain, Mild (Pain Scale 1-3) Albuterol Sulfate 2 puff 09/03/20 01:51 Albuterol Sulfate 90 Mcg 8 Gm Inhaler INHALE RQID PRN wheezing Albuterol/Ipratropium 3 ml 09/03/20 08:00 09/09/20 07:34 Albuterol/Iprat 2.5/0.5mg 3 Ml Ampul.Neb INHALE 3 ml RQ4H WHILE AWAKE DONELL Administration Albuterol/Ipratropium 3 ml 09/02/20 21:59 Albuterol/Iprat 2.5/0.5mg 3 Ml Ampul.Neb INHALE Q4H PRN Shortness of Breath/Wheezing Docusate Sodium 100 mg 09/03/20 01:51 09/05/20 08:23 Docusate Sodium 100 Mg Capsule PO 100 mg DAILY PRN Administration Constipation Doxycycline Hyclate 100 mg 09/07/20 11:00 09/09/20 11:18 Doxycycline Hyclate 100 Mg Tablet PO 100 mg Q12H DONELL Administration Enoxaparin Sodium 40 mg 09/03/20 03:00 09/09/20 04:37 Enoxaparin Sodium 40 Mg/0.4 Ml Syringe SUBCUT Not Given Q24H DONELL Fluticasone/Vilanterol 1 puff 09/08/20 08:00 09/09/20 07:35 Fluticasone/Vilanterol 200/25 Blst.W.Dev INHALE 1 puff RDAILY DONELL Administration Guaifenesin/Dextromethorphan 5 ml 09/02/20 21:59 09/07/20 12:28 Guaifenesin Dm 100/10/5 Ml 5 Ml Syrup PO 5 ml Q4H PRN Administration Cough Guaifenesin/Dextromethorphan 2 tab 09/07/20 12:45 09/09/20 09:03 Guaifenesin Dm 600/30 1 Tab Tab.Er.12h PO 2 tab BID DONELL Administration Hydroxyzine HCl 25 mg 09/03/20 09:00 09/09/20 09:03 Hydroxyzine Hcl 25 Mg Tablet PO 25 mg TID DONELL Administration Ibuprofen 400 mg 09/05/20 15:12 09/07/20 21:29 Ibuprofen 400 Mg Tablet PO 400 mg Q6H PRN Administration Headache Loratadine 10 mg 09/05/20 11:00 09/09/20 09:03 Loratadine 10 Mg Tablet PO 10 mg DAILY DONELL Administration Melatonin 6 mg 09/03/20 21:18 09/08/20 22:57 Melatonin 3 Mg Tablet PO 6 mg BEDTIME PRN Administration Insomnia Methylprednisolone Sodium Succinate 40 mg 09/09/20 15:00 Methylprednisolone Sod Succ 40 Mg/Ml Vial IVPUSH TID DONELL Ondansetron HCl 4 mg 09/03/20 01:51 Ondansetron Hcl 4 Mg/2 Ml Vial IVPUSH Q8H PRN Nausea and Vomiting Polyethylene Glycol 17 gm 09/05/20 09:00 09/09/20 09:05 Polyethylene Glycol 3350 17 Gm Powd.Pack PO 17 gm DAILY DONELL Administration Sertraline HCl 75 mg 09/03/20 09:00 09/09/20 09:03 Sertraline Hcl 50 Mg Tablet PO 75 mg DAILY DONELL Administration Sodium Chloride 3 ml 09/03/20 01:51 09/09/20 09:03 0.9 % Sodium Chloride Flush 3 Ml Syringe IVFLUSH 3 ml QSHIFT DONELL Administration Tiotropium [place] 1 puff 09/08/20 08:00 09/09/20 07:35 Tiotropium [place] 18 Mcg Cap.W.Dev INHALE 1 puff RDAILY DONELL Administration Labs CBC & Chem 7: 09/03/20 06:48 09/07/20 06:08 Assessment and Plan (1) Viral syndrome: Status: Acute (2) Acute respiratory failure with hypoxia: Status: Acute (3) Asthma with exacerbation: Status: Acute Assessment and Plan: 35-year-old female with past medical history of asthma who presents to the hospital with wheezing and difficulty breathing, patient kids were recently diagnosed to have have upper respiratory infection, patient kids were diagnosed to have upper viral infection and had negative COVID test. Acute hypoxic respiratory failure with Acute Asthma exacerbation related to viral syndrome. -continue O2 and wean, continue IV steroid and reduce to 40 tid, bronchodilators schedule and PRN Anxiety continue hydroxyzine and sertraline Obstructive sleep apnea does not use CPAP at home but should be considered on outpatient Obesity contributing to obstructive sleep apnea , recommend to follow low- calorie diet DISPO: home when medically stable. Reassess tomorrow discharge DVT prophylaxis with Lovenox
[2020-09-09] MEDS: methylPREDNISolone Sod Succ 40 MG/ML VIAL IVPUSH ×2 (14:54→20:08)
[2020-09-09] MEDS: Melatonin 3 MG TABLET 6 MG PO (23:14)
[2020-09-10 03:30] VITALS: BP 138/81; PULSE 71; RESP 18; TEMP 36; O2SAT 97
[2020-09-10 07:48] VITALS: BP 141/76; PULSE 73; RESP 16; TEMP 36.1; O2SAT 95
[2020-09-10] MEDS: Fluticasone/Vilanterol 200/25 BLST.W.DEV 1 PUFF INHALE (08:24)
[2020-09-10 08:29] VITALS: PULSE 72; O2SAT 95
--- NOTE | 2020-09-10 08:45 | MHC.CM.PN ---
at this time DC plan remains the same, for patient to return home no svcs. cm to cont. to follow.
[2020-09-10] MEDS: guaiFENesin DM 600/30 1 TAB TAB.ER.12H 2 TAB PO (08:57)
[2020-09-10] MEDS: Sertraline HCL 50 MG TABLET 75 MG PO (08:57)
[2020-09-10] MEDS: hydrOXYzine HCL 25 MG TABLET PO (08:58)
[2020-09-10] MEDS: Loratadine 10 MG TABLET PO (08:59)
[2020-09-10] MEDS: 0.9 % Sodium Chloride Flush 3 ML SYRINGE IVFLUSH (08:59)
--- NOTE | 2020-09-10 09:06 | PM.DS ---
DS: Providers Provider Date of Service: 09/10/20 Date of admission: 09/02/20 21:59 Primary care physician: Adal Aparicio MD Consults: 09/07/20 09:18 Consult to Pulmonology Routine Consulting Provider: Barrett Rivera Reason for consultation: asthma /hypoxia DS: Diagnosis Discharge Diagnosis (1) Viral syndrome: Status: Acute (2) Acute respiratory failure with hypoxia: Status: Acute (3) Asthma with exacerbation: Status: Acute DS: Medications Discharge Medications Home Medications: Home Medications Medication Instructions Recorded Confirmed L norgest/e.estradiol-e.estrad 1 tab PO DAILY 09/02/20 09/02/20 [Amethia] albuterol sulfate 2 puff INHALATION QID PRN 09/02/20 09/02/20 hydroxyzine HCl 1 tab PO TID 09/02/20 09/02/20 sertraline 1.5 tab PO DAILY 09/02/20 09/02/20 ergocalciferol (vitamin D2) 1 cap PO QWEEK 09/03/20 09/03/20 DS: Summary Hospital Course Hospital Course: Chief Complaint: sob This is a 35-year-old female with past medical history of asthma, sleep apnea, anxiety who presents to the hospital with difficulty breathing. Patient reports that her kids have been diagnosed with an upper viral infection but have been negative for COVID about a day ago, followed by her developing shortness of breath, wheezing, coughing, congestion and congestion yesterday. She denies any fever and no chills, no chest pain, no palpitations, no headache or change in vision, no abdominal pain nausea or vomiting, no diarrhea or urinary symptoms and no lower extremity edema. Hospital course: Essentially the patient was admitted for acute hypoxic respiratory failure that we belived triggered by a viral syndrome and was having signficant wheeze, hypoxia, cough. She is treated with IV steroid, bronchodilators by Neb and emiric Doxycline on Pulmonology recommendation. At this time she is doing much better, hypoxia has resolved, lung exam has much improved with minimal wheeze and no increased WOB, she has been walking down the [place] with no oxygen and tolerating well. She will be discharged with Prednisone, and to finish course of Doxycline and use Albterol as needed. Discharge plan is reviewed with the patient and she is comfortable with it Time Spent with Patient Time attestation: Total time spent providing and/or coordinating discharge services: Discharge coordination time: Greater than 30 minutes Quality: Stroke Does the patient have a stroke diagnosis?: No Physical Exam Vital Signs: Vital Signs: Last Vital Signs Temp 97.0 F 09/10/20 07:48 Pulse 72 09/10/20 08:29 Resp 16 09/10/20 07:48 BP 141/76 H 09/10/20 07:48 Pulse Ox 95 09/10/20 07:48 Body Mass Index 36.0 Discharge Plan Discharge Anticipated Discharge Date/Time: 09/10/20 08:50 Patient Disposition: Home, Self-Care Discharge Diagnosis: Asthma exacerbation Referrals: Adal Aparicio MD [Primary Care Provider] - 1 Week Discharge Medications: New doxycycline hyclate 100 mg Tablet 100 mg PO Q12H Qty: 7 RF: 0 prednisone 20 mg tablet 40 mg PO DAILY Qty: 8 RF: 0 albuterol sulfate 1.25 mg/3 mL solution for nebulization 1.25 mg inhalation Q4-6H PRN (Reason: shortness of breath or wheezing) Qty: 75 RF: 0 Continued hydroxyzine HCl 25 mg tablet 1 tab PO TID RF: 0 albuterol sulfate 90 mcg/actuation HFA aerosol inhaler 2 puff inhalation QID PRN (Reason: wheezing) RF: 0 sertraline 50 mg tablet 1.5 tab PO DAILY RF: 0 L norgest/e.estradiol-e.estrad [Amethia] 0.15 mg-30 mcg (84)/10 mcg (7) tablets,dose pack,3 month 1 tab PO DAILY RF: 0 ergocalciferol (vitamin D2) 1,250 mcg (50,000 unit) capsule 1 cap PO QWEEK RF: 0 Discharge Orders: Discharge Order (Routine); Ordered 09/10/20 Ordered By: Benito Johnson Diet: advance to usual diet Activity on Discharge: As tolerated Stand Alone Forms: Patient Portal Discharge page Care Plan Goals: Full recovery from respiratory from asthma Health Concerns: viral syndrome causing asthma exacerbation Plan of Treatment: Take Prednisone, and Use albuterol as directed. Take Doxycyline as directed and follow up with your doctor in a week, call for appointment Assessment: See above Discharge Date/Time: 09/10/20 12:15
[2020-09-10] MEDS: predniSONE 20 MG TABLET 40 MG PO (10:22)
[2020-09-10 11:12] VITALS: BP 126/70; PULSE 74; RESP 17; TEMP 36.8; O2SAT 93
== END 2020-09-10 12:15 | disposition home or self-care (01) | DRG 865 ==
LOC: HO.ED 21:16 → HO.EDOVER 22:28 → HO.S3 09-03 02:18
PROVIDERS: Hospitalist; Nurse Practitioner Family; Physician Assistant; Admitting Provider Internal Medicine; Emergency Provider Emergency Medicine; PCP Internal Medicine; Visit Provider Internal Medicine
DX: B34.9 Viral infection, unspecified (principal); J96.01 Acute respiratory failure with hypoxia; J45.41 Moderate persistent asthma with (acute) exacerbation; E66.9 Obesity, unspecified; Z68.36 Body mass index [BMI] 36.0-36.9, adult; F41.9 Anxiety disorder, unspecified; G47.33 Obstructive sleep apnea (adult) (pediatric); Z20.822 Contact with and (suspected) exposure to COVID-19; Z79.899 Other long term (current) drug therapy
CPT/HCPCS: 36415; 71045; 71046; 71275; 80048; 85025; 85379; 87633; 87635; 94640; 94644; 94645; 99285; J1200; J1650; J2270; J2920; J2930; J3010; J3475; Q9967

== ENCOUNTER 2021-01-14 08:48 | Emergency (ER) | payer MEDICARE, MEDICAID, SELFPAY ==
[2021-01-14 09:01] VITALS: BP 129/82; PULSE 87; RESP 20; TEMP 36; O2SAT 99; BMI 36.0
--- NOTE | 2021-01-14 09:43 | ED_ITS ---
HPI - Back Pain/Injury General Chief Complaint: Back Pain/Injury Stated Complaint: back pain Time Seen by Provider: 01/14/21 09:38 Source: patient and family Mode of arrival: ambulatory Limitations: no limitations History of Present Illness MD elicited complaint: back pain Pertinent past history: prior back pain Onset (ago): day(s) (Few days worse today) Timing: constant and progressively worsening Severity: moderate Similar Symptoms Previously: Yes Quality: sharp Location: lumbar spine Radiation: buttocks, right upper leg and right leg below the knee Exacerbating factors: movement, supine positioning, sitting upright, walking and lifting Relieving factors: none Context: unknown Associated symptoms: denies other symptoms Treatments prior to arrival: NSAIDS Work related injury: No Related Data Home Medications Medication Instructions Recorded Confirmed L norgest/E estradiol-E estrad 1 tab PO DAILY 09/02/20 09/02/20 0.15 mg-30 mcg (84)/10 mcg(7) tabs,3mos (Amethia) albuterol sulfate 90 mcg/actuation 2 puff INHALATION QID PRN 09/02/20 09/02/20 aerosol inhaler hydroxyzine HCl 25 mg tablet 1 tab PO TID 09/02/20 09/02/20 sertraline 50 mg tablet 1.5 tab PO DAILY 09/02/20 09/02/20 ergocalciferol (vitamin D2) 1,250 1 cap PO QWEEK 09/03/20 09/03/20 mcg (50,000 unit) capsule Previous Rx's Medication Instructions Recorded albuterol sulfate 1.25 mg/3 mL 1.25 mg INHALATION Q4-6H PRN #75 ml 09/10/20 solution for nebulization doxycycline hyclate 100 mg tablet 100 mg PO Q12H #7 tab 09/10/20 prednisone 20 mg tablet 40 mg PO DAILY #8 tab 09/10/20 cyclobenzaprine 10 mg tablet 10 mg PO Q8H #14 tab 01/14/21 ibuprofen 800 mg tablet 800 mg PO Q8H PRN #14 tab 01/14/21 lidocaine HCl 4 % topical cream 1 appl TOPICAL BID PRN #120 g 01/14/21 (Aspercreme (lidocaine HCl)) oxycodone 5 mg tablet 5 mg PO Q6H PRN #14 tab 01/14/21 prednisone 20 mg tablet 40 mg PO DAILY 5 Days #10 tab 01/14/21 Allergies Allergy/AdvReac Type Severity Reaction Status Date / Time No Known Allergies Allergy Verified 09/02/20 16:10 Review of Systems Review of Systems: Constitutional : No trauma, No Weight loss, No Fever, No Chills, ENT/Mouth : No Hearing loss, No Ear Pain, No Nasal Congestion, No Sinus Pain, No Hoarseness, No sore throat, No Rhinorrhea, No Swallowing Difficulty Cardiovascular : No Chest Pain, No SOB Respiratory : No Cough, No Dyspnea Gastrointestinal : No Nausea, No Vomiting, No Diarrhea, No abdominal Pain, No Hematochezia, No Melena Genitourinary : No Dysuria, No Urinary Frequency, No Hematuria, No Urinary or Bowel Incontinence/retention Musculoskeletal : + Back pain, No neck pain, No joint stiffness, No joint swelling Skin : No Skin Lesions, No rash or signs of infection Neuro : No Weakness, + radiation, No Numbness, No Paresthesias, No headache, no loss of bowel or bladder incontinence, no saddle anesthesia, Focal weakness Denies history of IV drug usage. Yes all other systems are reviewed and are negative [facility] Past Medical History Attestation statement: The following information was validated with the patient. Medical History Anxiety Asthma Sleep apnea Social History Social History Household Members: Significant Other and Children Housing: Apartment Do you presently have visiting nurse or other home services: No Alcohol intake: never Advance Directives: No Patient : No Physical Exam Vital Signs: Vital Signs: Last Vital Signs Temp 96.8 F 01/14/21 09:01 Pulse 87 01/14/21 09:01 Resp 20 01/14/21 09:01 BP 129/82 01/14/21 09:01 Pulse Ox 99 01/14/21 09:01 Body Mass Index 36.0 vital signs have been reviewed as normal and appeared to be correct. Blood pressure normal. Heart rate normal. Respiration rate normal. Temperature normal. Oxygen saturation normal. Appearance: Alert. Oriented X3. No acute distress. Head: Normal external exam. Normocephalic. Atraumatic. No Morrison signs noted. No raccoon eyes noted Eyes: PERRLA. EOMI. Conjunctiva and sclera normal. Eyelids normal. ENT: EAC normal. TM's Normal. Pharynx normal. Uvula midline. Moist mucous membranes. No trismus noted. No drooling noted. No muffled voice noted. Neck: Normal inspection. Neck supple. FROM. No adenopathy. Thyroid Normal. No meningeal signs. No neck mass noted. CVS: Normal heart rate and rhythm. Heart sound normal. No murmurs noted. Pulses normal throughout. Respiratory: No respiratory distress. Painless inspiration. Breath sounds normal. No wheezes/rales/rhonchi noted. Chest nontender. No accessory muscle usage noted or decreased air movement noted. Abdomen: Soft and nontender. Bowel sounds normal in all 4 quadrants. No distention noted. No organomegaly noted. No visible injury noted. Back: No CVA tenderness. Full range of motion noted. No obvious deformities, or edema. Mild para-spinal muscular tenderness from lumbar region to coccyx. Full ROM in back and lower extremities. 5/5 strength hip extension/flexion, abduction, adduction. Mild Lumbar pain with hip flexion against resistance. Straight leg raise test negative on right; Straight leg raise test negative on left; Reflexes normal ankle and knee bilaterally; EHL motor strength normal bilaterally. No rashes/lesion/induration/fluctuance or signs infection noted. Skin: Skin warm and dry. Normal skin color. Normal skin turgor. No rashes/lesions/lacerations noted. Extremities: No lower extremity edema. Extremities exhibit normal range of motion. Extremities nontender. Neuro: Oriented X 3. No motor deficit. No sensory deficit. Reflexes normal. Patient has a normal steady gait. Course Course Course Narrative: Pt c likely muscular pain, but could be herniated disc. Neuro exam shows no deficits. Not c/w AAA/epidural abscess/dissection.No high risk Hx (Incont, fever, immunosupp, recent surgery/LP, coag, signif trauma, wt loss, puls mass, hx/o Ca, TB, or IVDU) to warrant MRI/CT today. Not c/w Pyelo/UTI/kidney stone/spinal fx. Not cauda equina syndrome. Imaging not currently indicated. DC c meds and f/u. Discharge Plan Discharge Clinical Impression: Lumbar radiculopathy Patient Disposition: Home, Self-Care Instructions: Lumbar Radiculopathy (ED), Lower Back Exercises (ED) Prescriptions: New lidocaine HCl [Aspercreme (lidocaine HCl)] 4 % cream 1 appl topical BID PRN (Reason: pain) Qty: 120 RF: 0 cyclobenzaprine 10 mg tablet 10 mg PO Q8H Qty: 14 RF: 0 ibuprofen 800 mg tablet 800 mg PO Q8H PRN (Reason: pain) Qty: 14 RF: 0 prednisone 20 mg tablet 40 mg PO DAILY 5 Days Qty: 10 RF: 0 oxycodone 5 mg tablet 5 mg PO Q6H PRN (Reason: pain) Qty: 14 RF: 0 No Action hydroxyzine HCl 25 mg tablet 1 tab PO TID RF: 0 albuterol sulfate 90 mcg/actuation HFA aerosol inhaler 2 puff inhalation QID PRN (Reason: wheezing) RF: 0 sertraline 50 mg tablet 1.5 tab PO DAILY RF: 0 L norgest/e.estradiol-e.estrad [Amethia] 0.15 mg-30 mcg (84)/10 mcg (7) tablets,dose pack,3 month 1 tab PO DAILY RF: 0 ergocalciferol (vitamin D2) 1,250 mcg (50,000 unit) capsule 1 cap PO QWEEK RF: 0 doxycycline hyclate 100 mg Tablet 100 mg PO Q12H Qty: 7 RF: 0 prednisone 20 mg tablet 40 mg PO DAILY Qty: 8 RF: 0 albuterol sulfate 1.25 mg/3 mL solution for nebulization 1.25 mg inhalation Q4-6H PRN (Reason: shortness of breath or wheezing) Qty: 75 RF: 0 Referrals: Adal Aparicio MD [Primary Care Provider] - 2 days Print Language: Pashto
[2021-01-14] MEDS: Cyclobenzaprine HCl 10 MG TABLET PO (09:55)
[2021-01-14] MEDS: predniSONE 20 MG TABLET 40 MG PO (09:55)
[2021-01-14] MEDS: Ibuprofen 800 MG TABLET PO (09:55)
[2021-01-14] MEDS: oxyCODONE HCl Immed Release 5 MG TABLET PO (09:56)
== END 2021-01-14 09:58 | disposition home or self-care (01) ==
PROVIDERS: Emergency Provider Emergency Medicine; PCP Internal Medicine
DX: M54.16 Radiculopathy, lumbar region (principal); Z79.899 Other long term (current) drug therapy
CPT/HCPCS: 99283

== ENCOUNTER 2021-03-16 15:27 | Outpatient (REF) | payer MEDICARE, MEDICAID, SELFPAY ==
[2021-03-16 16:25] LABS: COVID-19 Test Negative (Negative)
== END 2021-03-16 15:28 | disposition home or self-care (01) ==
LOC: HO.LAB 15:27
PROVIDERS: Visit Provider Internal Medicine
DX: Z20.822 Contact with and (suspected) exposure to COVID-19 (principal)
CPT/HCPCS: 36415; 87635

== ENCOUNTER 2021-03-20 13:16 | Outpatient (REF) | payer MEDICARE, MEDICAID, SELFPAY ==
[2021-03-20 13:56] LABS: COVID-19 Test Negative (Negative); IDNOW Serial# 9DD0AD1C
== END 2021-03-20 13:17 | disposition home or self-care (01) ==
LOC: HO.LAB 13:16
PROVIDERS: PCP Internal Medicine; Visit Provider Internal Medicine
DX: Z20.822 Contact with and (suspected) exposure to COVID-19 (principal)
CPT/HCPCS: 36415; 87635

== ENCOUNTER 2021-04-19 22:34 | Outpatient (REF) | payer MEDICARE, MEDICAID, SELFPAY ==
[2021-04-19 23:25] LABS: COVID-19 Test Negative (Negative); IDNOW Serial# 9DD0AD1C
== END 2021-04-19 22:35 | disposition home or self-care (01) ==
LOC: HO.LAB 22:34
PROVIDERS: Visit Provider Internal Medicine
DX: Z20.822 Contact with and (suspected) exposure to COVID-19 (principal)
CPT/HCPCS: 87635

== ENCOUNTER 2021-08-23 22:52 | Emergency (ER) | payer MEDICARE, MEDICAID, SELFPAY ==
[2021-08-23 22:55] VITALS: BP 114/75; PULSE 103; RESP 30; TEMP 36.6; O2SAT 100; BMI 36.0
--- NOTE | 2021-08-23 23:15 | ED.ASTHMA ---
HPI - Asthma General Chief Complaint: Upper Respiratory Symptoms Stated Complaint: Asthma/ Diff Breathing Time Seen by Provider: 08/23/21 23:10 Source: patient Mode of arrival: ambulatory History of Present Illness HPI Narrative: 36-year-old female with history of asthma presents with worsening shortness of breath since this morning and states that it started with a ?cold?. She otherwise denies any fever chills and states she is used her inhaler at home without much success and did take a home COVID-19 test which is negative. Related Data Home Medications Medication Instructions Recorded Confirmed L norgest/E estradiol-E estrad 1 tab PO DAILY 09/02/20 09/02/20 0.15 mg-30 mcg (84)/10 mcg(7) tabs,3mos (Amethia) albuterol sulfate 90 mcg/actuation 2 puff INHALATION QID PRN 09/02/20 09/02/20 aerosol inhaler hydroxyzine HCl 25 mg tablet 1 tab PO TID 09/02/20 09/02/20 sertraline 50 mg tablet 1.5 tab PO DAILY 09/02/20 09/02/20 ergocalciferol (vitamin D2) 1,250 1 cap PO QWEEK 09/03/20 09/03/20 mcg (50,000 unit) capsule Previous Rx's Medication Instructions Recorded albuterol sulfate 1.25 mg/3 mL 1.25 mg (3 mL) INHALATION Q4-6H 09/10/20 solution for nebulization PRN #75 ml doxycycline hyclate 100 mg tablet 100 mg PO Q12H #7 tab 09/10/20 prednisone 20 mg tablet 40 mg PO DAILY #8 tab 09/10/20 cyclobenzaprine 10 mg tablet 10 mg PO Q8H #14 tab 01/14/21 ibuprofen 800 mg tablet 800 mg PO Q8H PRN #14 tab 01/14/21 lidocaine HCl 4 % topical cream 1 appl TOPICAL BID PRN #120 g 01/14/21 (Aspercreme (lidocaine HCl)) oxycodone 5 mg tablet 5 mg PO Q6H PRN #14 tab 01/14/21 prednisone 20 mg tablet 40 mg PO DAILY 5 Days #10 tab 01/14/21 prednisone 50 mg tablet 50 mg PO DAILY 4 Days #4 tab 08/24/21 Allergies Allergy/AdvReac Type Severity Reaction Status Date / Time No Known Allergies Allergy Verified 09/02/20 16:10 Review of Systems Review of Systems: Pertinent positives and negatives as stated in HPI 10 point review of systems is otherwise negative. [facility] Past Medical History Source: nursing notes reviewed Medical History Anxiety Asthma Sleep apnea Social History Social History Household Members: Significant Other and Children Housing: Apartment Do you presently have visiting nurse or other home services: No Alcohol intake: never Advance Directives: No Advance Directives Information Provided: No Physical Exam Vital Signs: Vital Signs: Last Vital Signs Temp 97.9 F 08/23/21 22:55 Pulse 112 H 08/24/21 00:39 Resp 20 08/24/21 00:39 BP 126/48 L 08/24/21 00:39 Pulse Ox 100 08/24/21 00:39 BMI result Body Mass Index 36.0 VITAL SIGNS: Reviewed. GENERAL: Well developed, well nourished, in no acute distress. HEAD: Normocephalic/atraumatic EYES: PERRLA, EOMI EARS: Ext canals without abnormality OROPHARYNX: no oral lesions noted, posterior pharynx clear LUNGS: Decreased breath sounds bilaterally with expiratory wheeze and also coarse rhonchi and noted cough. Patient is also tachypneic. SpO2<100> CARDIOVASCULAR: Regular rate and rhythm without noted murmurs ABDOMEN: Soft, non-tender, non-distended with bowel sounds. NEUROLOGIC: Alert and oriented x 4. Strength and sensation to light touch were grossly intact x 4. Course Course Course Narrative: 36-year-old female with history and clinical presentation consistent with significant asthma exacerbation and will treat with steroids/albuterol/magnesium and test for COVID-19/influenza. Review of all investigations otherwise negative for acute findings and on re-evaluation after patient received full treatment she reports significant improvement and on reauscultation there has been significant breath sounds. MDM - Asthma Lab Data Labs: Lab Results 08/23/21 08/23/21 Range/Units 23:28 23:28 COVID-19 (HAZEL) Negative (Negative) COVID-19 Clin Com See Note Influenza Type A (JULIANNA) Negative (Negative) Influenza Type B (JULIANNA) Negative (Negative) Influenza A & B Note See Note Discharge Plan Discharge Clinical Impression: Asthma exacerbation Patient Disposition: Home, Self-Care Instructions: Asthma (ED) Additional Instructions: 1. Resume all home medications as prescribed. Recommend that you increase the frequency of your albuterol inhaler for the next 24 hours. Also, recommend that you begin taking seasonal allergy medication to help reduce asthma exacerbations. 2. You have been placed on a short course of steroids, please take as prescribed. 3. Follow-up with your primary care provider on Thursday morning for re-evaluation further outpatient management. Return to the ER for worsening symptoms. Prescriptions: New prednisone 50 mg tablet 50 mg PO DAILY 4 Days Qty: 4 0RF No Action hydroxyzine HCl 25 mg tablet 1 tab PO TID 0RF albuterol sulfate 90 mcg/actuation HFA aerosol inhaler 2 puff inhalation QID PRN (Reason: wheezing) 0RF sertraline 50 mg tablet 1.5 tab PO DAILY 0RF L norgest/e.estradiol-e.estrad [Amethia] 0.15 mg-30 mcg (84)/10 mcg (7) tablets,dose pack,3 month 1 tab PO DAILY 0RF ergocalciferol (vitamin D2) 1,250 mcg (50,000 unit) capsule 1 cap PO QWEEK 0RF doxycycline hyclate 100 mg Tablet 100 mg PO Q12H Qty: 7 0RF prednisone 20 mg tablet 40 mg PO DAILY Qty: 8 0RF albuterol sulfate 1.25 mg/3 mL solution for nebulization 1.25 mg inhalation Q4-6H PRN (Reason: shortness of breath or wheezing) Qty: 75 0RF lidocaine HCl [Aspercreme (lidocaine HCl)] 4 % cream 1 appl topical BID PRN (Reason: pain) Qty: 120 0RF cyclobenzaprine 10 mg tablet 10 mg PO Q8H Qty: 14 0RF ibuprofen 800 mg tablet 800 mg PO Q8H PRN (Reason: pain) Qty: 14 0RF prednisone 20 mg tablet 40 mg PO DAILY 5 Days Qty: 10 0RF oxycodone 5 mg tablet 5 mg PO Q6H PRN (Reason: pain) Qty: 14 0RF
[2021-08-23 23:27] VITALS: PULSE 92; RESP 20; O2SAT 99
[2021-08-23] MEDS: Albuterol Sulfate (0.083%) 2.5 MG/3 ML VIAL.NEB 10 MG INHALE (23:27)
[2021-08-23 23:53] LABS: Influenza A Negative (Negative); Influenza B2 Negative (Negative)
[2021-08-23 23:54] LABS: COVID-19 Test Negative (Negative); IDNOW Serial# 08D9AD1C
[2021-08-23] MEDS: Magnesium Sulfate/H2O 2 GM/50 ML PIGGYBACK IV (23:54)
[2021-08-23] MEDS: methylPREDNISolone Sod Succ 125 MG/2 ML VIAL IVPUSH (23:54)
[2021-08-23 23:59] VITALS: PULSE 120; RESP 18; O2SAT 100
[2021-08-24] MEDS: Albuterol Sulfate (0.083%) 2.5 MG/3 ML VIAL.NEB 10 MG INHALE
--- NOTE | 2021-08-24 00:02 | PC.NURSE ---
20g IV Access established in left AC. Medications infusing as ordered. Respiratory Therapist (Michael) at bedside administering 2nd albuterol dose. Pt remains tachypnic, with O2 Saturation 95% on room air, but with increased work of breathing & cough.
[2021-08-24 00:39] VITALS: BP 126/48; PULSE 112; RESP 20; O2SAT 100
== END 2021-08-24 02:19 | disposition home or self-care (01) ==
PROVIDERS: Emergency Provider Student in an Organized Health Care Education/Training Program
DX: J45.901 Unspecified asthma with (acute) exacerbation (principal); Z20.822 Contact with and (suspected) exposure to COVID-19
CPT/HCPCS: 87502; 87635; 94640; 94644; 94645; 96365; 96366; 96375; 99281; 99284; J2930; J3475

== ENCOUNTER 2023-10-26 12:55 | Outpatient (AMB) | payer MEDICARE, MEDICAID, SELFPAY ==
--- NOTE | 2023-10-26 13:26 | A.OFFVIS_ITS ---
Vital Signs 10/26/23 13:27 Height 5 ft 4 in Weight 217 lb BMI 37.2 BP 126/84 Blood Pressure Location Rt brachial Position Sitting Pulse 77 Pulse Source Pulse Oximeter Pulse Oximetry (%) 96 Oxygen Delivery Method Room Air Intake Visit Reasons: [facility] Intake Note: Patient here for headaches. at the age of 15 I got a really bad migraine I just get headaches now. Allergies No Known Allergies Allergy (Verified 10/26/23 13:28) Medication List - Last Reconciled 10/26/23 by FABIANO Nation albuterol sulfate 90 mcg/actuation 2 puffs inhalation QID PRN albuterol sulfate 1.25 mg (3 mL) inhalation Q4-6H PRN cyclobenzaprine 10 mg PO Q8H doxycycline hyclate 100 mg PO Q12H ergocalciferol (vitamin D2) 1 cap PO QWEEK fluticasone furoate-vilanterol 50-25 mcg/dose (Breo Ellipta) inhalation hydroxyzine HCl 1 tab PO TID ibuprofen 800 mg PO Q8H PRN L norgest/e.estradiol-e.estrad 0.15 mg-30 mcg (84)/10 mcg (7) (Amethia) 1 tab PO DAILY lidocaine HCl 4% (Aspercreme (lidocaine HCl)) 1 appl topical BID PRN oxycodone 5 mg PO Q6H PRN prednisone 40 mg (2 x 20 mg) PO DAILY prednisone 40 mg (2 x 20 mg) PO DAILY 5 days prednisone 50 mg PO DAILY 4 days sertraline 1.5 tabs PO DAILY HPI Comments Details: Right-handed 38-yr-old female presents for new pt evaluation of chronic headache disorder and pituitary adenoma. Pt was referred by [facility], Dr Jim Peralta after brain MRI revealed 4mm pituitary adenoma. MRI had been ordered as part of work-up for bilateral galactorhea. Pt reports she had her 1st migraine at age 15. She had a severe 3 day migraine a/w photophobia and nausea, vomiting- required ER eval. Since, she has had mild er headaches every 1-2 weeks. But more recently, she has been having more headaches a/w with more symptoms- like she has woken up with a hangover. PMH and ROS are notable for:? General: glasses. Musculoskeletal disorders or injury: arthritic back pain Mood d/o: Anxiety, Depression, Respiratory d/o: Asthma Endocrine or metabolic d/o: clear/white-yellowish bilateral nipple : kidney stones- left kidney GI d/o: Constipation. Blaoting. Recent H Pylori test negative. 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 Family history of migraine or other headache disorder: Unknown- adopted Pertinent denials include: Denies diplopia, peripheral vision loss, usual dizziness. History of concussion/head injury, CV disease, Clotting or hematology d/o, metabolic d/o, History of seizure, syncope, or drop attacks, Lifestyle considerations: Sleep routine: Usual bedtime: 9 or 11pm and wake-up time: 6am Sleep difficulties: Denies. Snoring, h/o gasping arousals. Had a CPAP in the past- but no longer, f/u sleep study normal. Restlessness at times, Leg Cramps- rare. Has laughed in her sleep. 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 Previous work-up: Brain MRI w/wo, Feb 2023 at [facility]. Ordered by [facility]/Terri green Typical headache characteristics: Prodrome symptoms: Unknown Aura: Visual aura w/ her 1st migraine attack Pain intensity: now more moderate Location, quality, characteristics: Sometimes frontal/top of head or bitemporal. Pressure/throbbing. Associated symptoms: photophobia, phonophobia, nausea but no recent vomiting, not right in space dizziness/lightheadedness, cognitive difficulties- sometimes word finding difficulties (can occur w/wo headache), bending over exacerbates headache. Postdrome: lingering headache Triggers: Unknown Time of day: No specific time of day- but wake up with a headache Duration and Frequency: Can have 3 headache days per week, headache can last 1-3 days How does headache impact your life? Not missing work. Headache is bothersome. Current acute medication use/interventions: Motrin 600mg- ineffective. Current preventative medication use: None Non-pharmacological interventions: None [facility] Medical History (Updated 10/26/23 @ 22:02 by FABIANO Nation) Sleep apnea Anxiety Asthma Surgical History H/O tubal ligation H/O dilation and curettage H/O section Social History Household Members: Significant Other and Children Housing: Apartment Do you presently have visiting nurse or other home services: No Alcohol intake: current Patient Tobacco Use Status: Former Tobacco user Physical Exam Vital Signs: Last Vital Signs Pulse 77 10/26/23 13:27 BP 126/84 10/26/23 13:27 Pulse Ox 96 10/26/23 13:27 Oxygen Delivery Method Room Air 10/26/23 13:27 BMI result Body Mass Index 37.2 Const Orientation/consciousness: patient oriented x3 Resp Effort & Inspection: normal respiratory effort and able to speak in complete sentences Neuro Other: No palpable scalp tenderness. Mallampatti stage IV Good expression and blink BUE R > L postural tremor- mild FFM, Foot taps, BUE MARICHUY - intact BUE- no tone or rigidity noted. Archimede's spiral- intact Writing sample- legible, very mild tremor w/o micrographia. Good stride, steady gait. General: patient oriented x3 Cranial nerves: Yes CN's II-XII intact bilaterally Cognition (Neuro): normal cognition Gait exam (Neuro): Normal gait present Motor exam (neuro): 5/5 motor strength present throughout Deep tendon reflexes (DTR's): Right triceps reflex intensity grade: 2+, Left triceps reflex intensity grade: 2+, Rt Biceps (C5, C6): 2+, Left biceps reflex intensity grade: 2+, Right brachioradialis reflex intensity grade: 2+, Left brachioradialis reflex intensity grade: 2+, Right patellar reflex intensity grade: 2+ and Left patellar reflex intensity grade: 2+ Coordination: [id number] test normal, tandem gait normal and Romberg test negative Pupils: Normal pupillary reactivity/response: bilateral Psych Appearance: grossly normal Mental Status: mental status grossly normal Speech and movement: Clear speech present Affect: normal affect Attitude: cooperative Thought process: Normal thought process present Assessment & Plan Assessment & Plan (1) Migraine without aura: Code(s): G43.009 - Migraine without aura, not intractable, without status migrainosus Category: Medical (2) Migraine with aura: Comment: history of Code(s): G43.109 - Migraine with aura, not intractable, without status migrainosus Category: Medical (3) Pituitary adenoma: Comment: 4mm. f/b [facility] [facility]. Code(s): D35.2 - Benign neoplasm of pituitary gland Category: Medical (4) Tremor: Comment: likely ET vs exaggerated physiological tremor. Code(s): R25.1 - Tremor, unspecified Category: Medical Plan Will request brain MRI and lab reports from [facility]/[place]. For overall headache management: * Optimize good self-care, including but not limited to maintaining a healthy diet, adequate fluid intake, adequate sleep, and engaging in regular physical activity. * Track headaches, especially after any treatment regimen changes. Migraine [employer] is one of many headache tracking apps. * Information shared on non-pharmacological interventions which may help to alleviate headache attack burden. For acute headache treatment: Discussed importance of taking acute medications at the first sign of headache, however stressed importance of avoiding acute medication overuse (especially with combined headache medications). Trial Sumatriptan 100mg tab, 1/2 - 1 tab (50-100mg) at onset of headache, may repeat in 2 hours. Max of 2 tabs (200mg) per 24 hours. May adjunct with OTC Tylenol 650mg q 4 hours, Ibuprofen 600mg q 6 hours, or Naproxen 440mg q 12 hrs prn. Previous acute migraine medication trials: None Acute migraine medication contraindications: None at this time For headache prevention medication: Preventative medications should be taken routinely as prescribed for best effect, it may take several weeks for full effect to take effect. Start Riboflavin 400mg qam Start Magnesium 400mg qhs Previous migraine prevention medication trials: None Migraine prevention medication contraindications: Caution w/ beta-blockers d/t asthma dx. For tremor: Asked pt to monitor when tremor is more noticeable, if tremor reduces with alcohol intake. Discussed trying propranolol (low dose d/t astham dx) for tremor and migraine however pt would like to wait at this time. Pt to follow-up in 3-6 months or sooner prn. Medications: New riboflavin (vitamin B2) 400 mg PO DAILY 30 days 30 tabs 6RF magnesium oxide may hold for loose stools 400 mg PO BEDTIME 30 days 30 tabs 6RF sumatriptan succinate (0.5 - 1 x 100 mg) 50 - 100 mg orally at onset of headache, may repeat in 2 hrs PRN; max 2 tabs per day or 4 tabs/week (may take with Ibuprofen) 30 days 12 tabs 6RF migraine headache Coding Level of Care Code New Pt Level 4 (92078) Diagnoses Migraine without aura G43.009 Migraine with aura G43.109 Pituitary adenoma D35.2 Tremor R25.1
[2023-10-26 13:27] VITALS: BP 126/84; PULSE 77; O2SAT 96; BMI 37.2
== END 2023-10-26 14:57 | disposition home or self-care (01) ==
PROVIDERS: PCP Internal Medicine; Visit Provider Nurse Practitioner Family
DX: G43.009 Migraine without aura, not intractable, without status migrainosus (principal); G43.109 Migraine with aura, not intractable, without status migrainosus; D35.2 Benign neoplasm of pituitary gland; R25.1 Tremor, unspecified
CPT/HCPCS: 99204

== ENCOUNTER → 2023-10-26 12:55 | Outpatient (BNVA) | payer MEDICARE, MEDICAID, SELFPAY | PROVIDERS: PCP Internal Medicine; Visit Provider Nurse Practitioner Family | DX: G43.109 Migraine with aura, not intractable, without status migrainosus (principal); G43.009 Migraine without aura, not intractable, without status migrainosus; D35.2 Benign neoplasm of pituitary gland; R25.1 Tremor, unspecified | CPT/HCPCS: 99202 ==

== ENCOUNTER 2024-12-22 10:10 | Outpatient (AMB) | payer MEDICAID, SELFPAY ==
--- NOTE | 2024-12-22 10:20 | A.OFFVIS_ITS ---
Vital Signs 12/22/24 10:24 Height 5 ft 4 in Weight 225 lb BMI 38.6 BP 128/72 Blood Pressure Location Rt brachial Position Sitting Pulse 76 Pulse Source Pulse Oximeter Pulse Oximetry (%) 97 Oxygen Delivery Method Room Air Intake Visit Reasons: follow up rebooked Intake Note: Patient presents follow up for migraines [employer] Architect Required: No Accompanied by: Self / Same As Patient Allergies No Known Allergies Allergy (Verified 12/22/24 10:21) Medication List - Last Reconciled 12/22/24 by FABIANO Nation acetaminophen ER (Tylenol 8 Hour) 650 mg PO Q8H adapalene 0.3% topical albuterol sulfate 90 mcg/actuation 2 puffs inhalation QID PRN albuterol sulfate 1.25 mg (3 mL) inhalation Q4-6H PRN alclometasone 0.05% topical cyanocobalamin (vitamin B-12) (Vitamin B-12) 1,000 mcg PO DAILY cyclobenzaprine 10 mg PO Q8H ergocalciferol (vitamin D2) 1 cap PO QWEEK fluticasone furoate-vilanterol 50-25 mcg/dose (Breo Ellipta) inhalation hydroxyzine HCl 1 tab PO TID ibuprofen 800 mg PO Q8H PRN lorazepam 0.5 mg PO DAILY PRN magnesium oxide 400 mg PO BEDTIME 90 days montelukast 10 mg PO BEDTIME riboflavin (vitamin B2) 400 mg PO DAILY 30 days simethicone (Gas Relief Extra Strength) mg PO sumatriptan succinate 50 - 100 mg orally at onset of headache, may repeat in 2 hrs PRN; max 2 tabs per day or 4 tabs/week (may take with Ibuprofen) 30 days HPI Comments Details: Right-handed 38-yr-old female presents for follow-up of migraine and tremor. She continues to have 1-2 migraine days per week. Tolerating Mag and B2 well. Sumatriptan helped but caused a strange sensation, so now using OTC Tylenol and Ibuprofen which are not effective. She continues to have intermittent Bilateral hand tremor and cramps w/wo activity, and Bilateral bottom of feet cramps. Magnesium has not seemed to help these. Has chronic left 5th finger decreased sensation- has h/o left ulnar neuralgia/impingement. However, now both elbows hurt. Has done PT for her amrs. oes not believe she has done hand therapy specifically. Not sure if alcohol helps hand tremors or not. 10/26/2023, Initial HPI: new pt evaluation of chronic headache disorder and pituitary adenoma. Pt was referred by [facility], Dr Jim Peralta after brain MRI revealed 4mm pituitary adenoma. MRI had been ordered as part of work-up for bilateral galactorhea. Pt reports she had her 1st migraine at age 15. She had a severe 3 day migraine a/w photophobia and nausea, vomiting- required ER eval. Since, she has had milder headaches every 1-2 weeks. But more recently, she has been having more headaches a/w with more symptoms- like she has woken up with a hangover. PMH and ROS are notable for:? General: glasses. Musculoskeletal disorders or injury: arthritic back pain Mood d/o: Anxiety, Depression, Respiratory d/o: Asthma Endocrine or metabolic d/o: clear/white-yellowish bilateral nipple : kidney stones- left kidney GI d/o: Constipation. Blaoting. Recent H Pylori test negative. 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 Family history of migraine or other headache disorder: Unknown- adopted Pertinent denials include: Denies diplopia, peripheral vision loss, usual dizziness. History of concussion/head injury, CV disease, Clotting or hematology d/o, metabolic d/o, History of seizure, syncope, or drop attacks, Lifestyle considerations: Sleep routine: Usual bedtime: 9 or 11pm and wake-up time: 6am Sleep difficulties: Denies. Snoring, h/o gasping arousals. Had a CPAP in the past- but no longer, f/u sleep study normal. Restlessness at times, Leg Cramps- rare. Has laughed in her sleep. 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 Previous work-up: Brain MRI w/wo, Feb 2023 at [facility]. Ordered by [facility]/Terri green Typical headache characteristics: Prodrome symptoms: Unknown Aura: Visual aura w/ her 1st migraine attack Pain intensity: now more moderate Location, quality, characteristics: Sometimes frontal/top of head or bitemporal. Pressure/throbbing. Associated symptoms: photophobia, phonophobia, nausea but no recent vomiting, not right in space dizziness/lightheadedness, cognitive difficulties- sometimes word finding difficulties (can occur w/wo headache), bending over exacerbates headache. Postdrome: lingering headache Triggers: Unknown Time of day: No specific time of day- but wake up with a headache Duration and Frequency: Can have 3 headache days per week, headache can last 1-3 days How does headache impact your life? Not missing work. Headache is bothersome. Current acute medication use/interventions: Motrin 600mg- ineffective. Current preventative medication use: None Non-pharmacological interventions: None [facility] Medical History (Updated 12/22/24 @ 11:27 by FABIANO Nation) Sleep apnea Anxiety Asthma Surgical History H/O tubal ligation H/O dilation and curettage H/O section Social History Household Members: Significant Other and Children Housing: Apartment Do you presently have visiting nurse or other home services: No Alcohol intake: current Patient Tobacco Use Status: Former Tobacco user Physical Exam Vital Signs: Last Vital Signs Pulse 76 12/22/24 10:24 BP 128/72 12/22/24 10:24 Pulse Ox 97 12/22/24 10:24 Oxygen Delivery Method Room Air 12/22/24 10:24 BMI result Body Mass Index 38.6 Const Orientation/consciousness: patient oriented x3 Resp Effort & Inspection: normal respiratory effort and able to speak in complete sentences Neuro Other: Good expression and blink BUE L > R postural tremor- mild Good stride, steady gait. General: patient oriented x3 Cranial nerves: Yes CN's II-XII intact bilaterally Cognition (Neuro): normal cognition Gait exam (Neuro): Normal gait present Motor exam (neuro): 5/5 motor strength present throughout Psych Appearance: grossly normal Mental Status: mental status grossly normal Speech and movement: Clear speech present Affect: normal affect Attitude: cooperative Thought process: Normal thought process present Assessment & Plan Assessment & Plan (1) Migraine without aura: Code(s): G43.009 - Migraine without aura, not intractable, without status migrainosus Category: Medical Qualifiers: Intractability: not intractable Status migrainosus presence: without status migrainosus Qualified Code(s): G43.009 - Migraine without aura, not intractable, without status migrainosus (2) Migraine with aura: Comment: history of Code(s): G43.109 - Migraine with aura, not intractable, without status migrainosus Category: Medical Qualifiers: Intractability: not intractable Status migrainosus presence: without status migrainosus Qualified Code(s): G43.109 - Migraine with aura, not intractable, without status migrainosus (3) Pituitary adenoma: Comment: 4mm. f/b [facility]. Code(s): D35.2 - Benign neoplasm of pituitary gland Category: Medical (4) Tremor: Comment: likely ET vs exaggerated physiological tremor. Code(s): R25.1 - Tremor, unspecified Category: Medical (5) Hand cramps: Code(s): R25.2 - Cramp and spasm Category: Medical Plan For pituitary adenoma: Patient reports pituitary MRI stable. Denies peripheral vision loss. For overall headache management: * Optimize good self-care, including but not limited to maintaining a healthy diet, adequate fluid intake, adequate sleep, and engaging in regular physical activity. * Track headaches, especially after any treatment regimen changes. Migraine [employer] is one of many headache tracking apps. * Information shared on non-pharmacological interventions which may help to alleviate headache attack burden. For acute headache treatment: Discussed importance of taking acute medications at the first sign of headache, however stressed importance of avoiding acute medication overuse (especially with combined headache medications). * Discontinue Sumatriptan 100mg tab- not tolerated. * Trial Naratriptan 2.5mg tab, 1/2 - 1 tab (1.25-2.5mg) at onset of headache, may repeat in 4 hours. Max of 2 tabs (5mg) per 24 hours. May adjunct with OTC Tylenol 650mg every 4 hours, Ibuprofen (liquigel) 600mg every 6 hours, or Naproxen (liquigel) 440mg every 12 hrs as needed. Potential adverse effects of triptans, include but are not limited to nausea, fatigue, chest tightness/tingling (usually passes within a few minutes), medication overuse headaches. Previous acute migraine medication trials: Sumatriptan- not tolerated Acute migraine medication contraindications: None at this time For headache prevention medication: Preventative medications should be taken routinely as prescribed for best effect, it may take several weeks for full effect to take effect. * Continue Riboflavin 400mg qam * Continue Magnesium 400mg qhs * Start Co-Q 10 400mg daily in the morning- take w/ higher fat food. * Trial Topiramate IR 25-50mg daily at bedtime. * Potential adverse effects of Topiramate, include but are not limited to fatigue, cognitive changes, paresthesias (tingling), vision changes, kidney stones. Previous migraine prevention medication trials: None Migraine prevention medication contraindications: Caution w/ beta-blockers d/t asthma dx. For tremor: Pt advised to undergo BUE EMG/NCS OT- eval and treat for hand tx Pt to follow-up in 3-6 months or sooner prn. Orders: Orders NE nerve conduction velocity Today R25.1 - Tremor, unspecified, R25.2 - Cramp and spasm OT Evaluation and Treatment Today R25.1 - Tremor, unspecified, R25.2 - Cramp and spasm NE electromyogram (EMG) Today R25.1 - Tremor, unspecified, R25.2 - Cramp and spasm Medications: New topiramate 25 - 50 mg (1 - 2 x 25 mg) PO BEDTIME 60 tabs 3RF 30 days naratriptan take 1/2 - 1 tab at onset of headache; if no relief may repeat 1 tab after at least 4 hrs; max = 2 tabs/24 hrs orally PRN; 12 tabs 6RF migraine headache 30 days coenzyme Q10 Daily in a.m.. Take with higher fat food 400 mg PO DAILY 90 caps 3RF 90 days Changed From riboflavin (vitamin B2) 400 mg PO DAILY 30 days 30 tabs 6RF To riboflavin (vitamin B2) 400 mg PO DAILY 90 tabs 3RF 90 days Discontinued sumatriptan succinate Discontinued Reason: Doctor's Order (0.5 - 1 x 100 mg) 50 - 100 mg orally at onset of headache, may repeat in 2 hrs PRN; max 2 tabs per day or 4 tabs/week (may take with Ibuprofen) 30 days 12 tabs 6RF migraine headache Coding Level of Care Code Est Pt Level 4 (02873) Diagnoses Migraine without aura and without status migrainosus, not intractable G43.009 Intractability: not intractable Status migrainosus presence: without status migrainosus Migraine with aura and without status migrainosus, not intractable G43.109 Intractability: not intractable Status migrainosus presence: without status migrainosus Pituitary adenoma D35.2 Tremor R25.1 Hand cramps R25.2
[2024-12-22 10:24] VITALS: BP 128/72; PULSE 76; O2SAT 97; BMI 38.6
--- OUTSIDE RECORDS SUMMARY | 2024-12-22 12:22 | XMS_ITS | Clinical Summary ---
Author Organization [facility] Address [address] [place] [address] Phone Care Team Providers Care Clerk Stenographer Name Role Phone Denny Baird MD Primary Care Provider [phone] Allergies No known active allergies Medications magnesium oxide (MAG-OX) 400 mg magnesium tablet Take 1 tablet (400 mg total) by mouth at bedtime. MAY HOLD FOR LOOSE STOOLS 10/26/19 24 Active loratadine (CLARITIN) 10 mg tablet Take 1 tablet (10 mg total) by mouth 1 (one) time each day. For 360 days. 02/20/20 22 Active simethicone (MYLICON,GAS-X ) 125 mg capsule Take 1 capsule (125 mg total) by mouth if needed (bloating, gas). 09/24/19 24 Active acetaminophen (TYLENOL) 500 mg tablet Take 1 Tablet by mouth every 4 hours as needed (low back pain). 07/11/19 23 Active adapalene (DIFFERIN) 0.1 % cream Apply pea sized amount to skin every evening. 09/26/19 21 Active albuterol 2.5 mg /3 mL (0.083 %) nebulizer solution Take 1 Vial by nebulization every 6 hours as needed for Wheezing, Shortness of Breath or Cough for up to 180 days. 07/08/19 23 Active alclomethasone (ACLOVATE) 0.05 % ointment APPLY TO FACE AND NECK TWICE DAILY NEEDED FOR FLARES DECREASE TO ONCE DAILY AND EVERY OTHER DAY SYMPTOMS IMPROVE 05/26/19 24 Active fluticasone furoate-vilant Dani (BREO ELLIPTA) 200-25 mcg/dose inhaler Inhale 1 Puff into the lungs daily. 01/07/20 24 Active psyllium husk/aspartame (METAMUCIL FIBER SINGLES ORAL) Take 1 Package by mouth daily. 09/24/19 24 Active SUMAtriptan (IMITREX) 100 mg tablet TAKE HALF TO 1 TABLET BY MOUTH AT ONSET OF HEADACHE. MAY REPEAT IN 2 HOURS NEEDED. MAX 2 TABLETS PER DAY OR 4 TABS/WEEK. MAY TAKE WITH 10/26/19 24 Active cyanocobalamin (VITAMIN B-12) 1,000 mcg tablet Take 1 Tablet by mouth daily. 01/05/20 24 Active cyclobenzaprin e (FLEXERIL) 5 mg tablet Take 1 tablet (5 mg total) by mouth at bedtime as needed for muscle spasms. 30 tablet 10/25/19 25 2024 Active ibuprofen (ADVIL,MOTRIN) 600 mg tablet TAKE 1 TABLET (600 MG TOTAL) BY MOUTH 3 TIMES A DAY NEEDED FOR MILD PAIN 270 tablet 1 11/09/19 25 Active Ventolin HFA 90 mcg/actuation inhaler INHALE 2 PUFFS INTO THE LUNGS EVERY 4 HOURS NEEDED FOR COUGH OR WHEEZING. 18 each 2 11/29/19 25 Active riboflavin (VITAMIN B2) 400 mg tablet Take 1 tablet (400 mg total) by mouth 1 (one) time each day. 90 tablet 1 12/02/19 25 Active LORazepam (ATIVAN) 0.5 mg tablet TAKE 1 TABLET BY MOUTH DAILY NEEDED FOR ANXIETY OR PANIC ATTACKS 15 tablet 12/02/19 25 Active polyethylene glycol (MIRALAX) 17 gram packet Take 17 g by mouth 1 (one) time each day. 1530 g 1 12/02/19 25 Active riboflavin (VITAMIN B2) 400 mg tablet Take 1 tablet (400 mg total) by mouth 1 (one) time each day. 10/26/19 24 2024 Discontinued albuterol HFA (PROAIR HFA ; PROVENTIL HFA ; VENTOLIN HFA) 90 mcg/actuation inhaler Inhale 2 Puffs into the lungs every 4 hours as needed for Cough or Wheezing. 01/07/20 24 2024 Discontinued norgestimate-e thinyl estradioL (ORTHO-CYCLEN) 0.25-35 mg-mcg per tablet Take 1 Tablet by mouth daily for 360 days. 01/07/20 24 2024 Discontinued semaglutide (Wegovy) 0.25 mg/0.5 mL injection penIndications :Class 2 obesity due to excess calories without serious comorbidity with body mass index (BMI) of 36.0 to 36.9 in adult Inject 0.25 mg under the skin 1 (one) time per week. 2 mL 05/19/19 25 2024 Discontinued(C ost of medication) tamsulosin (FLOMAX) 0.4 mg 24 hr capsule Take 1 capsule (0.4 mg total) by mouth 1 (one) time each day. Capsules should be taken 30 minutes following the same meal each day. 30 each 10/25/19 25 2024 Discontinued LORazepam (ATIVAN) 0.5 mg tablet TAKE 1 TABLET BY MOUTH DAILY NEEDED FOR ANXIETY OR PANIC ATTACKS 10 tablet 11/23/19 25 2024 Discontinued(R eorder) Active Problems Problem Noted Date Diagnosed Date B12 deficiency 05/31/2024 Pituitary microadenoma (CMS/HCC V24, CMS/HCC V28 ) 12/30/2023 Pleuritic chest pain 02/12/2023 SOB (shortness of breath) 02/12/2023 Flexural atopic dermatitis 10/10/2022 Urticaria 10/10/2022 Nipple discharge 10/09/2022 Overview (02/12/2024): Last Assessment & Plan: Prolactin ordered Right lower quadrant pain 10/09/2022 Overview (02/12/2024): Last Assessment & Plan: Discussed potential causes of pelvic pain with the patient including infections, , ovarian cysts, endometriosis, interstitial cystitis, irritable bowel, and MSK etiologies. Repeat Pelvic US ordered Discussed functional ovarian cysts and mittelschmertz pain Discussed dysmenorrhea with menses and relief measures Discussed non-contraceptive benefits of BC Discussed relief measures for pain and reviewed warning signs and when to call, including fever, a significant increase in pain that might represent a rupture, torsion, or heavy vaginal bleeding. Moderate persistent asthma without complication 07/10/2022 Class 2 obesity due to exces s calories without serious comorbidity with body mass index (BMI) of 36.0 to 36.9 in adult 07/10/2022 Cubital tunnel syndrome on left 06/15/2022 Vitamin D insufficiency 07/02/[address] of the chest 06/02/2018 Allergic rhinitis due to pollen 06/02/2018 PND (post-nasal drip) 06/02/2018 Iron deficiency anemia 03/25/2016 Obesity (BMI 35.0-39.9 without comorbidity) 07/12 Anxiety and depression 03/27/2015 Anxiety 03/27/2015 Low back pain 01/18/2012 Asthma 02/21/2011 Overview (02/12/2024): Mild. Last ER visit was in [place] after she was exposed to animals. Encounters Date Type Department Care Team Description 12/01/2024 10:30 AM EDT Office Visit [address] [phone] Denny Baird MD Physical exam (Primary Dx); Moderate persistent asthma without complication; Migraine without aura and without status migrainosus, not intractable; B12 deficiency; Pituitary microadenoma (CMS/HCC V24, CMS/HCC V28); Anxiety and depression; Need for tetanus, diphtheria, and acellular pertussis (Tdap) vaccine; Obesity (BMI 35.0-39.9 without comorbidity); Constipation, unspecified constipation type; Screening for deficiency anemia; Screening for diabetes mellitus (DM); Screening for hyperlipidemia; Screening for thyroid disorder 10/24/2024 11:15 AM EDT Office Visit [address] [phone] Michelle Ferrari PA Acute left-sided low back pain without sciatica (Primary Dx); Renal calculus, left 10/24/[address] [phone] Denny Baird MD from Last 3 Months Immunizations Name Administration Dates Next Due Influenza trivalent, 0.5mL, preservative free (Fluarix; FluLaval; Fluzone) ages 6mo and older (Afluria) 3 years and older 05/09/2016,02/09/2013,02/25/2012 Influenza trivalent, with pr eservative (Fluzone; Afluria) 6mo and older 05/09/2016,02/09/2013 Moderna SARS-CoV-2 COVID-19, mRNA, LNP-S, preservative free 11/14/2020,10/16/2020,10/12/2020 PPD Test 06/10/2011,05/22/2011 Tdap Tetanus diptheria acell ular pertussis (Boostrix; Adacel) 7yo and older 12/01/2024,12/29/2013,03/13/2011 Surgical History Surgery Date Site/Laterality Comments SECTION 2009, , PROCEDURE: HISTORICAL DELIVERY; COMMENT: x3 TUBAL LIGATION PROCEDURE: HISTORICAL TUBAL LIGATION OTHER SURGICAL HISTORY 2010 PROCEDURE: HISTORICAL D&C; COMMENT: miscarriage Medical History Medical History Date Comments Asthma DX:Asthma Obese DX:Obese Adopted DX:Adopted Anxiety 03/27/2015 DX:Anxiety Depression 03/27/2015 DX:Depression Migraines DX:Migraines; CO MMENT: aura Renal calculi Family History Medical History Relation Name Comments Other: adopted Other does not know biological family Crohn's disease Son Relation Name Status Comments Father not known Mother not known Other Son Alive asthma Social History Tobacco Use Types Packs/Day Years Used Date Smoking Tobacco: Former Smokeless Tobacco: Never Comments:Quit 2013 Alcohol Use Standard Drinks/Week Comments Yes 0 (1 standard drink = 0.6 oz pur e alcohol) social Housing Instability Answer Date Recorde d Are you worried that in the next 2 months you may not have stable housing? No 12/01/2024 Food Access & Nutrition Answer Date Rec orded Do you have access to a vari ety of food including fruits and vegetables? Yes 12/01/2024 Access to Healthcare Answer Date Record ed Within the last 3 months, ho w many times did you visit the emergency department for your medical care? 0 12/01/2024 Financial Risk Answer Date Recorded How hard is it for you to pa y for the very basics like food, housing, medical care, and air conditioning / heating? Very hard 12/01/2024 Food Risk Answer Date Recorded Within the past 12 months we worried whether our food would run out before we got money to buy more. Often true 12/01/2024 Within the past 12 months th e food we bought just didn't last and we didn't have money to get more. Often true 12/01/2024 Living Situation Answer Date Recorded What is your living situation? 0 12/01/2024 Comments No Sex and Gender Information Value Date Recorded Sex Assigned at Choose not to disclose 1:26 PM EDT Legal Sex Female 4:16 PM EST Gender Identity Choose not to disclose 1:26 PM EDT Sexual Orientation Choose not to disclose 2024 1:26 PM EDT Obstetrics History * This document contains information received from the source organization and may not represent a complete record from that organization. Para Term AB IAB SAB Ectopic Multiple Livin g Live Births 4 3 3 3 3 Date Outcome GA Total Labor Labor/2nd/3rd Weight Sex Type Anes PTL Helen A1 A5 Name Clin 2009 Term 38w 0d 3742 g (132 oz) M CS-Un spec Livin g Delivery Location:[place] Comments:FTP, arrest d il, oligohydramnios 1 2011 Term 39w 0d 3799 g (134 oz) F CS-LT ranv Spinal N Livin g 9 9 [place] Delivery Location:[facility] Comments:severe anxiet y after spinal 2013 Term 39w 0d CS-LT ranv Spinal Livin g Mike Delivery Location:[facility] Last Filed Vital Signs Vital Sign Reading Time Taken Comments Blood Pressure 130/84 12/01/2024 10:26 AM EDT Pulse 80 12/01/2024 10:26 AM EDT Temperature 35.8 C (96.4 F) 12/01/2024 10:26 AM EDT Respiratory Rate 18 12/01/2024 10:26 AM EDT Oxygen Saturation - - Inhaled Oxygen Concentration - - Weight 101 kg (223 lb) 12/01/2024 10:26 AM EDT Height 162.6 cm (5' 4 ) 12/01/2024 10:26 AM EDT Body Mass Index 38.28 12/01/2024 10:26 AM EDT Plan of Treatment Upcoming Encounters Date Type Department Care Team (Late st Contact Info) Description 01/04/2025 10:35 AM EDT Office Visit Pulmonolgy - [place] [facility] [address] [place] [phone] Natalie Barney NP [address] [place] [phone] 06/05/2025 10:30 AM EST Office Visit Adult Medicine [facility] [address] [place], [place] [phone] Michelle Ferrari PA [address] [place] [phone] 07/06/2025 10:30 AM EDT Consult Bariatric Surgery - [place] [facility] [address] [place] [phone] Linh Del Rosario PA [address] [place] [phone] Health Maintenance Due Date Last Done Comments Hepatitis A Vaccines (1 of 2 - Risk 2-dose series) 08/23/2002 Hepatitis B Vaccines (1 of 3 - 19+ 3-dose series) 08/23/2002 Pneumococcal Vaccine: Pediatrics (0 to 5 Years) and At-Risk Patients (6 to 49 Years) (1 of 2 - PCV) 08/23/2002 Medicare Annual Wellness Visit 03/22/2022 COVID-19 Vaccine ( season) 2024 11/14/2020, 10/16/2020, 10/12/2020 Influenza Vaccine (#1) 2024 7, 05/09/2016, 02/09/2013, Additional history exists Social Influencers of Health Screening 12/01/2025 12/01/2024 Breast Cancer Screening 06/10/2026 06/10/2024 Cervical Cancer Screening: HPV 10/10/2027 10/09/2022, 10/09/2022 Cholesterol Screening (Lipid Panel) 12/01/2029 12/01/2024, 10/26/2023, 10/26/2023 DTaP,Tdap,and Td Vaccines (4 - Td or Tdap) 12/01/2034 12/01/2024, 12/29/2013, 03/13/2011 HIV Screening Completed 05/06/2017 Hepatitis C Screening Completed 05/06/2017 Depression Screening Completed 12/01/2024 HIB Vaccines Aged Out No longer eligi ble based on patient's age to complete this topic HPV Vaccines Aged Out No longer eligi ble based on patient's age to complete this topic IPV Vaccines Aged Out No longer eligi ble based on patient's age to complete this topic MMR Vaccines Aged Out No longer eligi ble based on patient's age to complete this topic Meningococcal ACWY Vaccine Aged Out N o longer eligible based on patient's age to complete this topic Meningococcal B Vaccine Aged Out No l onger eligible based on patient's age to complete this topic RSV Immunization Patients Under 20 months Aged Out No longer eligible based on patient's age to complete this topic Varicella Vaccines Aged Out No longer eligible based on patient's age to complete this topic Procedures Procedure Name Priority Date/Time Associated Diagnosis Comments CBC WITH AUTO DIFFERENTIAL Routine 12/01/2024 11:05 AM EDT Physical exam Moderate persistent asthma without complication Migraine without aura and without status migrainosus, not intractable B12 deficiency Pituitary microadenoma (CMS/HCC V24, CMS/HCC V28) Anxiety and depression Obesity (BMI 35.0-39.9 without comorbidity) Constipation, unspecified constipation type Screening for deficiency anemia Screening for diabetes mellitus (DM) Screening for hyperlipidemia Screening for thyroid disorder HEMOGLOBIN A1C Routine 12/01/2024 11:05 AM EDT Physical exam Moderate persistent asthma without complication Migraine without aura and without status migrainosus, not intractable B12 deficiency Pituitary microadenoma (CMS/HCC V24, CMS/HCC V28) Anxiety and depression Obesity (BMI 35.0-39.9 without comorbidity) Constipation, unspecified constipation type Screening for deficiency anemia Screening for diabetes mellitus (DM) Screening for hyperlipidemia Screening for thyroid disorder CBC AND DIFFERENTIAL Routine 12/01/2024 11:05 AM EDT Physical exam Moderate persistent asthma without complication Migraine without aura and without status migrainosus, not intractable B12 deficiency Pituitary microadenoma (CMS/HCC V24, CMS/HCC V28) Anxiety and depression Obesity (BMI 35.0-39.9 without comorbidity) Constipation, unspecified constipation type Screening for deficiency anemia Screening for diabetes mellitus (DM) Screening for hyperlipidemia Screening for thyroid disorder COMPREHENSIVE METABOLIC PANEL Routine 12/01/2024 11:05 AM EDT Physical exam Moderate persistent asthma without complication Migraine without aura and without status migrainosus, not intractable B12 deficiency Pituitary microadenoma (CMS/HCC V24, CMS/HCC V28) Anxiety and depression Obesity (BMI 35.0-39.9 without comorbidity) Constipation, unspecified constipation type Screening for deficiency anemia Screening for diabetes mellitus (DM) Screening for hyperlipidemia Screening for thyroid disorder LIPID PANEL WITH REFLEX TO DIRECT LDL Routine 12/01/2024 11:05 AM EDT Physical exam Moderate persistent asthma without complication Migraine without aura and without status migrainosus, not intractable B12 deficiency Pituitary microadenoma (CMS/HCC V24, CMS/HCC V28) Anxiety and depression Obesity (BMI 35.0-39.9 without comorbidity) Constipation, unspecified constipation type Screening for deficiency anemia Screening for diabetes mellitus (DM) Screening for hyperlipidemia Screening for thyroid disorder THYROID STIMULATING HORMONE WITH REFLEX TO FREE T4 AND FREE T3 Routine 12/01/2024 11:05 AM EDT Physical exam Moderate persistent asthma without complication Migraine without aura and without status migrainosus, not intractable B12 deficiency Pituitary microadenoma (CMS/HCC V24, CMS/HCC V28) Anxiety and depression Obesity (BMI 35.0-39.9 without comorbidity) Constipation, unspecified constipation type Screening for deficiency anemia Screening for diabetes mellitus (DM) Screening for hyperlipidemia Screening for thyroid disorder DURÁN URINE CULTURE TUBE Routine 10/24/2024 11:32 AM EDT Acute left-sided low back pain without sciatica Renal calculus, left URINALYSIS WITH REFLEX MICROSCOPIC AND CULTURE Routine 10/24/2024 11:32 AM EDT Acute left-sided low back pain without sciatica Renal calculus, left URINALYSIS WITH REFLEX MICROSCOPIC AND CULTURE Routine 10/24/2024 11:32 AM EDT Acute left-sided low back pain without sciatica Renal calculus, left MG MAMMO DIGITAL SCREENING W ANDREI BILAT Routine 06/10/2024 11:20 AM EST Encounter for screening mammogram for malignant neoplasm of breast HPV Routine 10/09/2022 HEPATITIS C SCREENING Routine 05/06/2017 HIV SCREENING Routine 05/06/2017 from Last 3 Months or Most Recently Relevant to Health Maintenance Results * Thyroid stimulating hormone with reflex to free t4 and free t3 (12/01/2024 11:05 AM EDT) TSH 2.21 0.40 - 4.00 mcIU/mL LAB CHEMISTRY METHOD 12/01/2024 4:15 PM EDT [facility] Blood Venous blood specimen / Unknown Venipuncture / Unknown 12/01/2024 11:05 AM EDT 12/01/2024 11:05 AM EDT us Denny Baird MD LAB BLOOD ORDERABLES Final Result [facility] [address] [place] [address], [place] [phone] * Lipid panel with reflex to direct LDL (12/01/2024 11:05 AM EDT) Cholesterol 164 0 - 200 mg/dL LAB CHEMISTRY METHOD 12/01/2024 3:00 PM EDT [facility] Triglycerides 124 0 - 150 mg/dL LAB CHEMISTRY METHOD 12/01/2024 3:00 PM EDT [facility] HDL 44 >=40 mg/dL LAB CHEMISTRY METHOD 12/01/2024 3:00 PM EDT [facility] LDL Calculated 95 0 - 100 mg/dL LAB CHEMISTRY METHOD 12/01/2024 3:00 PM EDT [facility] Comment:Estimated LDL Calcul ated using equation: Total cholesterol - HDL cholesterol - (Triglycerides/5) VLDL Cholesterol Yoandy 24.8 mg/dL LAB CHEMISTRY METHOD 12/01/2024 3:00 PM EDT [facility] Non HDL Chol. (LDL+VLDL) 120 <145 mg/dL LAB CHEMISTRY METHOD 12/01/2024 3:00 PM EDT [facility] Chol/HDL Ratio 3.7 0.0 - 4.4 LAB CHEMISTRY METHOD 12/01/2024 3:00 PM EDT [facility] Blood Venous blood specimen / Unknown Venipuncture / Unknown 12/01/2024 11:05 AM EDT 12/01/2024 11:05 AM EDT us Denny Baird MD LAB BLOOD ORDERABLES Final Result [facility] [address] [place] [address], * (ABNORMAL) CBC auto differential (12/01/2024 11:05 AM EDT) WBC 9.0 4.8 - 10.8 K/mcL LAB HEMETOLOGY METHOD 12/01/2024 12:19 PM EDT [facility] RBC 4.20 3.80 - 5.50 M/mcL LAB HEMETOLOGY METHOD 12/01/2024 12:19 PM EDT [facility] Hemoglobin 11.6(L) 12.0 - 18.0 g/dL LAB HEMETOLOGY METHOD 12/01/2024 12:19 PM EDT [facility] Hematocrit 36.7 36.0 - 48.0 % LAB HEMETOLOGY METHOD 12/01[facility]24 [facility] MCV 86.8 79.0 - 98.0 FL LAB HEMETOLOGY METHOD 12/01/2024 12:19 PM [facility] MCH 27.4 27.0 - 32.0 pcg LAB HEMETOLOGY METHOD 12/01/2024 12:19 PM [facility] MCHC 31.6(L) 32.0 - 37.0 g/dL LAB HEMETOLOGY METHOD 12/01/2024 12:19 PM [facility] RDW 12.7 11.0 - 15.0 % LAB HEMETOLOGY METHOD 12/01/2024 12:19 PM [facility] Platelets 303 130 - 400 K/mcL LAB HEMETOLOGY METHOD 12/01/2024 12:19 PM [facility] MPV 10.9 7.0 - 11.0 FL LAB HEMETOLOGY METHOD 12/01/2024 12:19 PM [facility] NRBC 0.0 <1.0 % LAB HEMETOLOGY METHOD 12/01/2024 12:19 PM [facility] NRBC Absolute 0.00 <0.10 K/mcL LAB HEMETOLOGY METHOD 12/01/2024 12:19 PM [facility] Neutrophils Relative 66.0 % LAB HEMETOLOGY METHOD 12/01/2024 12:19 PM [facility] Lymphocytes Relative 20.0 % LAB HEMETOLOGY METHOD 12/01/2024 12:19 PM [facility] Monocytes Relative 8.5 % LAB HEMETOLOGY METHOD 12/01/2024 12:19 PM [facility] Eosinophils Relative 3.8 % LAB HEMETOLOGY METHOD 12/01/2024 12:19 PM [facility] Basophils Relative 0.7 % LAB HEMETOLOGY METHOD 12/01/2024 12:19 PM [facility] Immature Granulocytes Relative 1.0 % LAB HEMETOLOGY METHOD 12/01/2024 12:19 PM EDT [facility] Neutrophils Absolute 5.91 1.50 - 7.00 K/mcL LAB HEMETOLOGY METHOD 12/01/2024 12:19 PM EDT [facility] Lymphocytes Absolute 1.79 1.00 - 5.00 K/mcL LAB HEMETOLOGY METHOD 12/01/2024 12:19 PM EDT [facility] Monocytes Absolute 0.76 0.20 - 1.00 K/mcL LAB HEMETOLOGY METHOD 12/01/2024 12:19 PM EDT [facility] Eosinophils Absolute 0.34 0.00 - 0.50 K/mcL LAB HEMETOLOGY METHOD 12/01/2024 12:19 PM EDT [facility] Basophils Absolute 0.06 0.00 - 0.20 K/mcL LAB HEMETOLOGY METHOD 12/01/2024 12:19 PM EDT [facility] Immature Granulocytes Absolute 0.09(H) 0.00 - 0.03 K/mcL LAB HEMETOLOGY METHOD 12/01/2024 12:19 PM EDT [facility] Blood Venous blood specimen / Unknown Venipuncture / Unknown 12/01/2024 11:05 AM EDT 12/01/2024 11:05 AM EDT us Denny Baird MD LAB BLOOD ORDERABLES Final Result [facility] [address] [place] [address], * Hemoglobin A1c (12/01/2024 11:05 AM EDT) Hemoglobin A1C 5.3 <6.5 % LAB CHEMISTRY METHOD 12/01/2024 2:23 PM EDT [facility] Mean Bld Glu Estim. 105 mg/dL LAB CHEMISTRY METHOD 12/01/2024 2:23 PM [facility] Blood Venous blood specimen / Unknown Venipuncture / Unknown 12/01/2024 11:05 AM EDT 12/01/2024 11:05 AM EDT Denny Baird MD LAB BLOOD ORDERABLES Final Result [facility] [address] [place] [address], * Comprehensive metabolic panel (12/01/2024 11:05 AM EDT) Sodium 136 133 - 145 mmol/L LAB CHEMISTRY METHOD 12/01/2024 3:00 PM [facility] Potassium 4.3 3.5 - 5.5 mmol/L LAB CHEMISTRY METHOD 12/01/2024 3:00 PM [facility] Chloride 106 96 - 110 mmol/L LAB CHEMISTRY METHOD 12/01/2024 3:00 PM [facility] CO2 26 21 - 32 mmol/L LAB CHEMISTRY METHOD 12/01/2024 3:00 PM [facility] Anion Gap 4 3 - 11 LAB CHEMISTRY METHOD 12/01/2024 3:00 PM [facility] Glucose 92 70 - 100 mg/dL LAB CHEMISTRY METHOD 12/01/2024 3:00 PM [facility] BUN 12 5 - 25 mg/dL LAB CHEMISTRY METHOD 12/01/2024 3:00 PM [facility] Creatinine 0.92 0.50 - 1.30 mg/dL LAB CHEMISTRY METHOD 12/01/2024 3:00 PM [facility] eGFR 80 >=60 mL/min/1. 73m2 LAB CHEMISTRY METHOD 12/01/2024 3:00 PM [facility] Comment: For non-binary individuals or unknown sex, the equation for female sex is used to calculate the estimated glomerular filtration rate (eGFR). Calculation based on the Chronic Kidney Disease Epidemiology Collaboration (CKD- EPI) equation refit without adjustment for race. BUN/Creatinine Ratio 13.0 LAB CHEMISTRY METHOD 12/01/2024 3:00 PM [facility] Calcium 9.1 8.5 - 10.5 mg/dL LAB CHEMISTRY METHOD 12/01/2024 3:00 PM [facility] AST (SGOT) 17 10 - 42 unit/L LAB CHEMISTRY METHOD 12/01/2024 3:00 PM [facility] ALT (SGPT) 30 10 - 60 unit/L LAB CHEMISTRY METHOD 12/01/2024 3:00 PM [facility] Alkaline Phosphatase 84 42 - 121 unit/L LAB CHEMISTRY METHOD 12/01/2024 3:00 PM [facility] Total Protein 7.1 6.0 - 8.0 g/dL LAB CHEMISTRY METHOD 12/01/2024 3:00 PM [facility] Albumin 3.7 3.2 - 5.0 g/dL LAB CHEMISTRY METHOD 12/01/2024 3:00 PM [facility] Total Bilirubin 0.4 0.0 - 1.4 mg/dL LAB CHEMISTRY METHOD 12/01/2024 3:00 PM [facility] Blood Venous blood specimen / Unknown Venipuncture / Unknown 12/01/2024 11:05 AM EDT 12/01/2024 11:05 AM EDT us Denny Baird MD LAB BLOOD ORDERABLES Final Result [facility] [address] [place] [address], * (ABNORMAL) Urinalysis with reflex microscopic and culture (10/24/2024 11:32 AM EDT) Specific [place] Urine 1.017 1.003 - 1.030 LAB URINALYSIS - AUTOMATED METHOD 10/24/2024 2:06 PM [facility] pH, Urine 6.5 5.0 - 8.0 pH LAB URINALYSIS - AUTOMATED METHOD 10/24/2024 2:06 PM [facility] Leukocytes, Urine Negative Negative LAB URINALYSIS - AUTOMATED METHOD 10/24/2024 2:06 PM [facility] Nitrite, Urine Negative Negative LAB URINALYSIS - AUTOMATED METHOD 10/24/2024 2:06 PM [facility] Protein, Urine Negative <=Trace mg/dL LAB URINALYSIS - AUTOMATED METHOD 10/24/2024 2:06 PM [facility] Glucose, Urine Negative Negative mg/dL LAB URINALYSIS - AUTOMATED METHOD 10/24/2024 2:06 PM [facility] Ketones, Urine Negative Negative mg/dL LAB URINALYSIS - AUTOMATED METHOD 10/24/2024 2:06 PM [facility] Urobilinogen, Urine 0.2 0.2 - 1.0 mg/dL LAB URINALYSIS - AUTOMATED METHOD 10/24/2024 2:06 PM [facility] Bilirubin, Urine Negative Negative LAB URINALYSIS - AUTOMATED METHOD 10/24/2024 2:06 PM [facility] Blood, Urine Trace(A) Negative LAB URINALYSIS - AUTOMATED METHOD 10/24/2024 2:06 PM [facility] RBC, Urine 4.2(H) 0 - 4 /HPF LAB URINALYSIS - AUTOMATED METHOD 10/24/2024 2:06 PM [facility] WBC, Urine 0.8 0 - 4 /HPF LAB URINALYSIS - AUTOMATED METHOD 10/24/2024 2:06 PM [facility] Squamous Epithelial, Urine 21 0 - 60 /LPF LAB URINALYSIS - AUTOMATED METHOD 10/24/2024 2:06 PM EDT [facility] Bacteria, Urine Negative Negative /HPF LAB URINALYSIS - AUTOMATED METHOD 10/24/2024 2:06 PM EDT [facility] Hyaline Casts, Urine 0.0 0 - 3 /LPF LAB URINALYSIS - AUTOMATED METHOD 10/24/2024 2:06 PM EDT [facility] Urine Urine specimen obtained by clean catch procedure / Unknown Non-blood Collection / Unknown 10/24/2024 11:32 AM EDT 10/24/2024 11:32 AM EDT Michelle JOSE LAB URINE ORDERABLES Fin al Result Performing Organization Address [facility]/ZIP Co de Phone Number [facility] [address] [place] [address], [place] [phone] * Durán urine culture tube (10/24/2024 11:32 AM EDT) Extra Tube Hold for add-ons. 10/24/2024 2:02 PM EDT [facility] Comment:Auto resulted. Urine Urine specimen obtained by clean catch procedure / Unknown Non-blood Collection / Unknown 10/24/2024 11:32 AM EDT 10/24/2024 11:32 AM EDT [facility] JOSE LAB URINE ORDERABLES Fin al Result [facility] [address] [place] [address], [place] [phone] * MG Mammo Digital Screening w Andrei bilat (06/10/2024 11:20 AM EST) Anatomical Region Laterality Modality Breast Bilateral Mammography 06/10/2024 1:35 PM EST Impressions 06/10/2024 1:39 PM EST No mammographic evidence of malignancy. A negative mammogram in the presence of a clinically suspicious palpable abnormality does not preclude the possibility of malignancy or alter the indications for biopsy. ASSESSMENT: BI-RADS 1: NEGATIVE RECOMMENDATION(S): 1: Routine screening mammogram BILATERAL in 1 year. Mamm[facility] location: [facility] [address], [address] -------- FINAL REPORT -------- Dictated By: Napoleon Haq Dictated Date: 06/10/2024 13:35 ET Assigned Physician: Napoleon Haq Reviewed and Electronically Signed By: Napoleon Haq Signed Date: 06/10/2024 13:39 ET Workstation ID: [id number] Transcribed By: Self Edit Transcribed Date: 06/10/2024 13:35 ET Narrative 06/10/2024 1:39 PM EST EXAM: SCREENING MAMMOGRAPHY, BILATERAL HISTORY: SCREENING. No additional history. COMPARISON: Initial exam TECHNIQUE: Synthesized CC and MLO projections of each breast. Tomosynthesis of each breast in the CC and MLO projections. ADDITIONAL IMAGING: None Computer-aided detection was employed with the [employer] AI 3-D. TISSUE DENSITY: There are scattered areas of fibroglandular density. (BI-RADS category B) FINDINGS: RIGHT BREAST: No suspicious mass. No suspicious calcification. No distortion. No additional suspicious right breast findings LEFT BREAST: No suspicious mass. No suspicious calcification. No distortion. No additional suspicious left breast findings Procedure Note Napoleon Haq MD - 06/10/2024 EXAM: SCREENING MAMMOGRAPHY, BILATERAL HISTORY: SCREENING. No additional history. COMPARISON: Initial exam TECHNIQUE: Synthesized CC and MLO projections of each breast.Tomosynthesis of each breast in the CC and MLO projections. ADDITIONAL IMAGING: None Computer-aided detection was employed with the [employer] AI 3-D. TISSUE DENSITY: There are scattered areas of fibroglandular density.(BI-RADS category B) FINDINGS: RIGHT BREAST: No suspicious mass. No suspicious calcification. No distortion. Noadditional suspicious right breast findings LEFT BREAST: No suspicious mass. No suspicious calcification. No distortion. Noadditional suspicious left breast findings IMPRESSION: No mammographic evidence of malignancy. A negative mammogram in the presence of a clinically suspicious palpableabnormality does not preclude the possibility of malignancy or alter theindications for biopsy. ASSESSMENT: BI-RADS 1: NEGATIVE RECOMMENDATION(S): 1: Routine screening mammogram BILATERAL in 1 year. Mamm[facility] location: [facility] at [address], [address] -------- FINAL REPORT -------- Dictated By: Napoleon Haq Dictated Date: 06/10/2024 13:35 ET Assigned Physician: Napoleon Haq Reviewed and Electronically Signed By: Napoleon Haq Signed Date: 06/10/2024 13:39 ET Workstation ID: [id number] Transcribed By: Self Edit Transcribed Date: 06/10/2024 13:35 ET Denny Baird MD IMG BI PROCEDURES Final Res ult * Cervical Cancer Screening: HPV (10/09/2022) Cervical Cancer Screening: HPV Negative, Abstracted Historical Provider HEALTH MAINTENANCE Final Result * HIV Screening (05/06/2017) Pathologist [facility] HIV Screening Abstracted Historical Provider HEALTH MAINTENANCE Final Result * Hepatitis C Screening (05/06/2017) Pathologist [facility] Hepatitis C Screening Abstracted Historical Provider HEALTH MAINTENANCE Final Result from Last 3 Months or Most Recently Relevant to Health Maintenance Insurance [facility] [place] [address] Care Teams Clerk Stenographer Relationship Specialty Start Date End Date Denny Baird MD [address] [place] [address] [place] PCP - General Internal Medicine 06/17/21
--- OUTSIDE RECORDS SUMMARY | 2024-12-22 12:22 | XMS_ITS ---
Author Name [facility] Organization Unknown Care Team Organization Name Specialty Phone Email Start Date End Da te [facility] Natalie Barney Primary [facility] 02/18/2022 11/30/2023
== END 2024-12-22 11:28 | disposition home or self-care (01) ==
LOC: HO.HSMS 10:10
PROVIDERS: PCP Internal Medicine; Visit Provider Nurse Practitioner Family
DX: G43.009 Migraine without aura, not intractable, without status migrainosus (principal); G43.109 Migraine with aura, not intractable, without status migrainosus; D35.2 Benign neoplasm of pituitary gland; R25.1 Tremor, unspecified; R25.2 Cramp and spasm
CPT/HCPCS: 99214

== ENCOUNTER → 2024-12-22 10:10 | Outpatient (BNVA) | payer OTHER, SELFPAY | PROVIDERS: PCP Internal Medicine; Visit Provider Nurse Practitioner Family | DX: G43.009 Migraine without aura, not intractable, without status migrainosus (principal); G43.109 Migraine with aura, not intractable, without status migrainosus; D35.2 Benign neoplasm of pituitary gland; R25.1 Tremor, unspecified; R25.2 Cramp and spasm | CPT/HCPCS: 99212 ==

== ENCOUNTER 2025-03-24 13:25 | Outpatient (REF) | payer OTHER, SELFPAY ==
--- NOTE | 2025-03-24 13:28 | EMG_ITS ---
Chief complaint: Chronic left 4th and 5th digit numbness. Denies numbness on right side. Reason for referral: Evaluate for ulnar neuropathy Referred by: Karina Dos Santos NP Procedure done: Bilateral upper extremities NCS/EMG Precautions and/or limitations: None The limb temperature was monitored continuously and remained between 32-36 degrees C during the performance of the NCS. Nerve Conduction Studies Anti Sensory Summary Table ?Stim Site NR Onset (ms) Norm Onset (ms) Peak (ms) Norm Peak (ms) O-P Amp (?V) Norm O-P Amp Site1 Site2 Delta-0 (ms) Dist (cm) Yemi (m/s) Norm Yemi (m/s) Left Median Anti Sensory (2nd Digit) Wrist ? 2.6 3.3 <3.6 41.6 >10 Wrist 2nd Digit 2.6 14.0 54 Right Median Anti Sensory (2nd Digit) Wrist ? 2.6 3.3 <3.6 37.3 >10 Wrist 2nd Digit 2.6 14.0 54 Left Ulnar Anti Sensory (5th Digit) Wrist ? 2.2 2.8 <3.7 43.5 >15.0 Wrist 5th Digit 2.2 14.0 64 Right Ulnar Anti Sensory (5th Digit) Wrist ? 2.2 2.9 <3.7 30.0 >15.0 Wrist 5th Digit 2.2 14.0 64 Motor Summary Table ?Stim Site NR Onset (ms) Norm Onset (ms) O-P Amp (mV) Norm O-P Amp iAmp (mV) Amp (1st) (%) Site1 Site2 Delta-0 (ms) Dist (cm) Yemi (m/s) Norm Yemi (m/s) Left Median Motor (Abd Poll Brev) Wrist ? 3.5 <3.9 10.2 >4.5 12.0 100.0 Elbow Wrist 3.7 21.5 58 >45 Elbow ? 7.2 8.2 10.3 80.4 Right Median Motor (Abd Poll Brev) Wrist ? 3.4 <3.9 11.0 >4.5 12.9 100.0 Elbow Wrist 3.6 22.0 61 >45 Elbow ? 7.0 10.1 12.2 91.8 Left Ulnar Motor (Abd Dig Minimi) Wrist ? 2.4 <3.0 9.9 >5 12.0 100.0 B Elbow Wrist 3.4 20.0 59 >45 B Elbow ? 5.8 9.0 11.0 90.9 A Elbow B Elbow 1.2 10.0 83 >45 A Elbow ? 7.0 8.8 10.9 88.9 Right Ulnar Motor (Abd Dig Minimi) Wrist ? 2.5 <3.0 9.1 >5 11.7 100.0 B Elbow Wrist 3.4 20.5 60 >45 B Elbow ? 5.9 9.2 12.2 101.1 A Elbow B Elbow 1.0 10.0 100 >45 A Elbow ? 6.9 9.2 12.3 101.1 EMG ?Side Muscle Nerve Root Ins Act Fibs Psw Amp Dur Poly Recrt Int Pat Comment Right 1stDorInt Ulnar C8-T1 Nml Nml Nml Nml Nml 0 Nml Complete Right FlexCarpiUln Ulnar C8,T1 Nml Nml Nml Nml Nml 0 Nml Complete Right Biceps Musculocut C5-6 Nml Nml Nml Nml Nml 0 Nml Complete Right Triceps Radial C6-7-8 Nml Nml Nml Nml Nml 0 Nml Complete Right Deltoid Axillary C5-6 Nml Nml Nml Nml Nml 0 Nml Complete Left 1stDorInt Ulnar C8-T1 Nml Nml Nml Nml Nml 0 Nml Complete Left FlexCarpiUln Ulnar C8,T1 Nml Nml Nml Nml Nml 0 Nml Complete Left Biceps Musculocut C5-6 Nml Nml Nml Nml Nml 0 Nml Complete Left Triceps Radial C6-7-8 Nml Nml Nml Nml Nml 0 Nml Complete Left Deltoid Axillary C5-6 Nml Nml Nml Nml Nml 0 Nml Complete FINDINGS: All motor and sensory nerves tested showed normal latencies, amplitudes and conduction velocities. Concentric needle EMG was performed in selected muscles of the bilateral upper extremities. Study did not reveal signs of electric abnormalities as shown in the table above. IMPRESSION: 1. This is a normal study. 2. There is no electrodiagnostic evidence for median neuropathy, ulnar neuropathy, brachial plexopathy, or cervical radiculopathy. Thank you for your kind referral. Saranya Barkley MD, GARRET Board Certified, [place] Board [employer] and Rehabilitation (ABPMR) Board Certified, [place] Board of Electrodiagnostic Medicine (ABEM) CODIN [phone] x 2 extremities MTDD
--- OUTSIDE RECORDS SUMMARY | 2025-03-24 18:55 | XMS_ITS | Encounter Summary ---
Author Organization [facility] Prior to 02/12/2024 Address [address] [place] [address] Care Team Providers Care Pharmacist In Charge Name Role Phone Adal Aparicio MD Primary Care Provider [phone] Denny Baird Primary Care Provider [phone] Codi Abdi MD Unavailable Encounter Details Date Type Department Care Team Description 04/15/2021 Orders Only Pediatrics - [facility] [address] [place] [address] Brandy Brunner [facility] [address] [place] [address] Social History Tobacco Use Types Packs/Day Years Used Date Smoking Tobacco: Former Smokeless Tobacco: Never Alcohol Use Standard Drinks/Week Comments Yes 0 (1 standard drink = 0.6 oz pur e alcohol) social Alcohol Habits Answer Date Recorded How often do you have a drink containing alcohol ? Monthly or less 03/25/2019 How many drinks containing a lcohol do you have on a typical day when you are drinking? 1 or 2 03/25/2019 How often do you have six or more drinks on one occasion? Never 03/25/2019 Sex Assigned at Date Recorded Not on file Job Start Date Occupation Industry Not on file Not on file Not on file documented as of this encounter Plan of Treatment Not on file documented as of this encounter Visit Diagnoses Not on filedocumented in this encounter Care Teams Pharmacist In Charge Relationship Specialty Start Date End Date Adal Aparicio MD [address] [place] [address] PCP - General Internal Medicine 07/17/15 06/16/21 Denny Baird [address] [place] [phone] PCP - General Internal Medicine 06/17/21 Codi Abdi MD [address] [place] [phone] Specialist Cardiology 11/26/22 documented as of this encounter
--- OUTSIDE RECORDS SUMMARY | 2025-03-24 18:55 | XMS_ITS | Encounter Summary ---
Author Organization [employer] [facility] Prior to 02/12/2024 Address [address] [place] [address] Care Team Providers Care Ticket Sorter Name Role Phone Yumiko Gregorio Primary Care Provider UnavailMatthew Saha MD Primary Care Provider Unavailabl e Adal Aparicio MD Primary Care Provider [phone] Denny Baird Primary Care Provider [phone] Codi Abdi MD Unavailable Encounter Details Date Type Department Care Team Description 03/03/2012 [facility] Medical Records [address] [place] [id number] [place] [address] Social History Tobacco Use Types Packs/Day Years [...] on filedocumented in this encounter Care Teams Ticket Sorter Relationship Specialty Start Date End Date Yumiko Gregorio PCP - General Internal Medicine 02/06/12 03/22/12 Matthew Cobb MD PCP - General Internal Medicine 03/23/12 07/16/15 Adal Aparicio MD [address] [place] [id number] PCP - General Internal Medicine 07/17/15 06/16/21 Denny Baird [address] [place] [address] [phone] PCP - General Internal Medicine 06/17/21 Codi Abdi MD [address] [place] [id number] Specialist Cardiology 11/26/22 documented as of this encounter
--- OUTSIDE RECORDS SUMMARY | 2025-03-24 18:55 | XMS_ITS | Clinical Summary ---
Author Organization [facility] Address [address] [place] [address] Phone Care Team Providers Care Eye Care Professional Name Role Phone Denny Baird MD Primary Care Provider [phone] Allergies No known active allergies Medications magnesium oxide (MAG-OX) 400 mg magnesium tablet Take 1 tablet (400 mg total) by mouth at bedtime. MAY HOLD FOR LOOSE STOOLS 10/26/19 24 Active loratadine (CLARITIN) 10 mg tablet Take 1 tablet (10 mg total) by mouth 1 (one) time each day. For 360 days. 02/20/20 22 Active simethicone (MYLICON,GAS-X) 125 mg capsule Take 1 capsule (125 mg total) by mouth if needed (bloating, gas). 09/24/19 24 Active acetaminophen (TYLENOL) 500 mg tablet Take 1 Tablet by mouth every 4 hours as needed (low back pain). 07/11/19 23 Active adapalene (DIFFERIN) 0.1 % cream Apply pea sized amount to skin every evening. 09/26/19 21 Active alclomethasone (ACLOVATE) 0.05 % ointment APPLY TO FACE AND NECK TWICE DAILY NEEDED FOR FLARES DECREASE TO ONCE DAILY AND EVERY OTHER DAY SYMPTOMS IMPROVE 05/26/19 24 Active SUMAtriptan (IMITREX) 100 mg tablet TAKE HALF TO 1 TABLET BY MOUTH AT ONSET OF HEADACHE. MAY REPEAT IN 2 HOURS NEEDED. MAX 2 TABLETS PER DAY OR 4 TABS/WEEK. MAY TAKE WITH 10/26/19 24 Active cyanocobalamin (VITAMIN B-12) 1,000 mcg tablet Take 1 Tablet by mouth daily. 01/05/20 24 Active ibuprofen (ADVIL,MOTRIN) 600 mg tablet TAKE 1 TABLET (600 MG TOTAL) BY MOUTH 3 TIMES A DAY NEEDED FOR MILD PAIN 270 tablet 1 11/09/19 25 Active riboflavin (VITAMIN B2) 400 mg [...] day. 1530 g 1 12/02/19 25 Active fluticasone furoate-vilanter oL (BREO ELLIPTA) 200-25 mcg/dose inhalerIndicatio ns:Moderate persistent asthma without complication Inhale 1 puff by mouth 1 (one) time each day. 1 each 11 02/24/20 25 Active albuterol HFA (Ventolin HFA) 90 mcg/actuation inhalerIndicatio ns:Moderate persistent asthma without complication Inhale 2 puffs by mouth every 6 (six) hours if needed for wheezing. 18 each 2 02/24/20 25 026 Active albuterol 2.5 mg /3 mL (0.083 %) nebulizer solutionIndicati ons:Moderate persistent asthma without complication Take 3 mL (2.5 mg total) by nebulization every 4 (four) hours if needed for wheezing or shortness of breath (chest tightness or cough). 75 mL 2 03/03/20 25 026 Active albuterol 2.5 mg /3 mL (0.083 %) nebulizer solution Take 1 Vial by nebulization every 6 hours as needed for Wheezing, Shortness of Breath or Cough for up to 180 days. 07/08/19 23 025 Discontin ued(Reord er) fluticasone furoate-vilanter oL (BREO ELLIPTA) 200-25 mcg/dose inhaler Inhale 1 Puff into the lungs daily. 01/07/20 24 025 Discontin ued(Reord er) psyllium husk/aspartame (METAMUCIL FIBER SINGLES ORAL) Take 1 Package by mouth daily. 09/24/19 24 025 Discontin ued(Avail ability) Ventolin HFA 90 mcg/actuation inhaler INHALE 2 PUFFS INTO THE LUNGS EVERY 4 HOURS NEEDED FOR COUGH OR WHEEZING. 18 each 2 11/29/19 25 025 Discontin ued(Reord er) Active Problems Problem Noted Date Diagnosed Date B12 deficiency 05/31/2024 Pituitary microadenoma 12/30/2023 Pleuritic chest pain 02/12/2023 SOB (shortness [...] (02/12/2024): Mild. Last ER visit was in [place] after she was exposed to animals. Encounters Date Type Department Care Team Description 03/03/2025 8:40 AM EST - 03/03/2025 11:59 PM EST Hospital Encounter [facility] Ru[facility] [address] [place] [address] Moderate persistent asthma without complication; Upper back pain on right side Discharge Disposition: Home or Self Care 03/03/2025 Results Follow-Up Pulmonology [facility] [address] [place] [phone] Natalie Barney NP 02/23/2025 10:10 AM EST Office Visit Pulmonology [facility] [address] [place] [phone] Natalie Barney NP Moderate persistent asthma without complication (Primary Dx); Upper back pain on right side from Last 3 Months Immunizations Immunization Administration Dates Next Due Influenza trivalent, 0.5mL, [...] Date Recorded What is your living situation? Unrecognized valu e 12/01/2024 Comments No Sex and Gender Information Value Date Recorded Sex Assigned at Not on file Legal Sex Female 4:16 PM EST Gender Identity Choose not to disclose 5 1:26 PM EDT Sexual Orientation Choose not [...] oz) M CS-Un spec Livin g Delivery Location:[facility] Comments:FTP, arrest d il, oligohydramnios 1 11/21/ 2012 Term 39w 0d 3799 g (134 oz) F CS-LT ranv Spinal N Livin g 9 9 [place] Delivery Location:[facility] Comments:severe anxiet y after spinal 2013 Term 39w 0d CS-LT ranv Spinal Livin g Mike Delivery Location:[facility] Last Filed Vital Signs Vital Sign Reading Time Taken Comments Blood Pressure 124/60 02/23/2025 10:11 AM EST Pulse 84 02/23/2025 10:11 AM EST Temperature 36 C (96.8 F) 02/23/2025 10:11 AM EST Respiratory Rate 16 02/23/2025 10:11 AM EST Oxygen Saturation 97% 02/23/2025 10:11 AM EST Inhaled Oxygen Concentration - - Weight 100 kg (220 lb 9.6 oz) 02/23/2025 10:11 A M EST Height 162.6 cm (5' 4 ) 02/23/2025 10:11 AM EST Body Mass Index 37.87 02/23/2025 10:11 AM EST Plan of Treatment Upcoming Encounters Date Type Department Care Team (Late st Contact Info) Description 06/05/2025 10:30 AM EST Office Visit Adult Medicine [facility] [address] [place] [address] Michelle Ferrari PA [address] [place], [place] 07/06/2025 10:30 AM EDT Consult Bariatric Surgery - [place] [facility] [address] [place] [phone] Linh Del Rosario PA [address] [place] [phone] 02/23/2026 11:00 AM EST Office Visit Pulmonology - [place] [facility] [address] [place] [phone] Natalie Barney NP [address] [place] [phone] Health Maintenance Due Date Last Done Comments Hepatitis B Vaccines (1 of 3 - 19+ 3-dose series) 08/23/2002 Pneumococcal Vaccine: Pediatrics (0 to 5 Years) and At-Risk Patients (6 to 49 Years) (1 of 2 - PCV) 08/23/2002 HPV Vaccines (1 - 3-dose SCDM series) 08/23/2010 Medicare Annual Wellness Visit 03/22/2022 COVID-19 Vaccine (4 - 2024- season) 2024 11/14/2020, 10/16/2020, 10/12/2020 Influenza Vaccine (#1) 2024 7, 05/09/2016, 02/09/2013, Additional history exists Social Influencers of Health Screening 12/01/2025 12/01/2024 Breast Cancer Screening 06/10/2026 06/10/2024 Cervical Cancer Screening: HPV 10/10/2027 10/09/2022, 10/09/2022 Cholesterol Screening (Lipid Panel) 12/01/2029 12/01/2024, 10/26/2023, 10/26/2023 DTaP,Tdap,and Td Vaccines (4 - Td or Tdap) 12/01/2034 12/01/2024, 12/29/2013, 03/13/2011 RSV Immunization Adult Patients (1 - 1-dose 75+ series) 08/23/2058 HIV Screening Completed 05/06/2017 Hepatitis C Screening Completed 05/06/2017 Depression Screening Completed 12/01/2024 HIB Vaccines Aged Out No longer eligi ble based on patient's age to complete this topic Hepatitis A Vaccines Aged Out No long er eligible based on patient's age to complete [...] Procedure Name Priority Date/Time Associated Diagnosis Comments XR CHEST 2 VIEWS Routine 03/03/2025 8:49 AM EST Moderate persistent asthma without complication Upper back pain on right side LIPID PANEL WITH REFLEX TO DIRECT LDL [...] Screening for hyperlipidemia Screening for thyroid disorder MG MAMMO DIGITAL SCREENING W ZENAIDA BILAT Routine 06/10/2024 11:20 AM EST Encounter for screening mammogram for malignant neoplasm of breast HPV Routine 10/09/2022 HEPATITIS C SCREENING Routine 05/06/2017 HIV SCREENING Routine 05/06/2017 from Last 3 Months or Most Recently Relevant to Health Maintenance Results * XR Chest 2 Views (03/03/2025 8:49 AM EST) Anatomical Region Laterality Modality Body Radiographic Kathi ging 03/03/2025 9:09 AM EST Impressions 03/03/2025 9:10 AM EST No acute cardiopulmonary process. -------- FINAL REPORT -------- Dictated By: Madison Mays Dictated Date: 03/03/2025 09:09 ET Assigned Physician: Madison Mays Reviewed and Electronically Signed By: Madison Mays Signed Date: 03/03/2025 09:10 ET Workstation ID: [id number] Transcribed By: Self Edit Transcribed Date: 03/03/2025 09:09 ET Narrative 03/03/2025 9:10 AM EST HISTORY: pain in R upper back. TECHNIQUE: PA and lateral radiographs of the chest COMPARISON: Chest radiograph from 05/14/2023 FINDINGS: There is a normal cardiomediastinal silhouette. The lungs are clear. Mild degenerative changes of the thoracic spine. Procedure Note Madison Mays MD - 03/03/2025 HISTORY: pain in R upper back. TECHNIQUE: PA and lateral radiographs of the chest COMPARISON: Chest radiograph from 05/14/2023 FINDINGS: There is a normal cardiomediastinal silhouette. The lungs are clear. Milddegenerative changes of the thoracic spine. IMPRESSION: No acute cardiopulmonary process. -------- FINAL REPORT -------- Dictated By: Madison Mays Dictated Date: 03/03/2025 09:09 ET Assigned Physician: Madison Mays Reviewed and Electronically Signed By: Madison Mays Signed Date: 03/03/2025 09:10 ET Workstation ID: [id number] Transcribed By: Self Edit Transcribed Date: 03/03/2025 09:09 ET us Natalie Barney DIRECTOR DATA MANAGEMENT IMG XR PROCEDURES Final Result * Lipid panel with reflex to direct LDL (12/01/2024 11:05 AM EDT) Cholesterol 164 0 - 200 mg/dL LAB CHEMISTRY METHOD 12/01/2024 3:00 PM EDT [facility] Triglycerides 124 0 - 150 mg/dL LAB CHEMISTRY METHOD 12/01/2024 3:00 PM EDT [facility] HDL 44 >=40 mg/dL LAB CHEMISTRY METHOD 12/01/2024 3:00 PM EDT [facility] LDL Calculated 95 0 - 100 mg/dL LAB CHEMISTRY METHOD 12/01/2024 3:00 PM EDT [facility] Comment:Estimated LDL Calcul ated using equation: Total cholesterol - HDL cholesterol - (Triglycerides/5) VLDL Cholesterol Yoandy 24.8 mg/dL LAB CHEMISTRY METHOD 12/01/2024 3:00 PM EDT [facility] Non HDL Chol. (LDL+VLDL) 120 <145 mg/dL LAB CHEMISTRY METHOD 12/01/2024 3:00 PM EDT [facility] Chol/HDL Ratio 3.7 0.0 - 4.4 LAB CHEMISTRY METHOD 12/01/2024 3:00 PM EDT [facility] Blood Venous blood specimen / Unknown Venipuncture / Unknown 12/01/2024 11:05 AM EDT 12/01/2024 11:05 AM EDT us Denny Baird MD LAB BLOOD ORDERABLES Final Result [facility] [address] [place] [address], * MG Mammo Digital Screening w Zenaida bilat (06/10/2024 11:20 AM EST) Anatomical Region [...] year. [facility]amm[facility] location: [facility] [address] [place], [address] -------- FINAL REPORT -------- Dictated By: Napoleon Haq Dictated Date: 06/10/2024 13:35 ET Assigned Physician: Napoleon Haq Reviewed and Electronically Signed By: Napoleon Haq Signed Date: 06/10/2024 13:39 ET Workstation ID: [id number] Transcribed By: Self Edit Transcribed Date: 06/10/2024 13:35 ET Narrative 06/10/2024 1:39 PM EST EXAM: SCREENING MAMMOGRAPHY, BILATERAL HISTORY: SCREENING. No additional history. COMPARISON: Initial exam TECHNIQUE: Synthesized CC and MLO projections of each breast. Tomosynthesis of each breast in the CC and MLO projections. ADDITIONAL IMAGING: None Computer-aided detection was employed with the [email or web address] AI 3-D. TISSUE DENSITY: There are scattered [...] None Computer-aided detection was employed with the [employer] AI 3-D. TISSUE DENSITY: There are scattered [...] year. Mammography location: [facility] [address], [address] -------- FINAL REPORT -------- Dictated By: Napoleon Haq Dictated Date: 06/10/2024 13:35 ET Assigned Physician: Napoleon Haq Reviewed and Electronically Signed By: Napoleon Haq Signed Date: 06/10/2024 13:39 ET Workstation ID: [id number] Transcribed By: Self Edit Transcribed Date: 06/10/2024 13:35 ET Denny Baird MD IMG BI PROCEDURES Final Res ult * Cervical Cancer Screening: HPV (10/09/2022) Pathologist [facility] Cervical Cancer Screening: HPV Negative, Abstracted us Historical Provider HEALTH MAINTENANCE Final Result * HIV Screening (05/06/2017) HIV Screening Abstracted Historical Provider HEALTH MAINTENANCE Final Result * Hepatitis C Screening (05/06/2017) Hepatitis C Screening Abstracted Historical Provider HEALTH MAINTENANCE Final Result from Last 3 Months or Most Recently Relevant to Health Maintenance Insurance [facility] [place] [address] Care Teams Eye Care Professional Relationship Specialty Start Date End Date Denny Baird MD [address] [place] [address] PCP - General Internal Medicine 06/17/21
--- OUTSIDE RECORDS SUMMARY | 2025-03-24 18:55 | XMS_ITS | Encounter Summary ---
Author Organization [facility] [facility] Prior to 02/12/2024 Address [address] [place] [address] Care Team Providers Care Pit Supervisor Name Role Phone Adal Aparicio MD Primary Care Provider [phone] Denny Baird Primary Care Provider [phone] Codi Abdi MD Unavailable Encounter Details Date Type Department Care Team Description 10/11/2017 Hospital Medical Records [address] [place] [id number] [facility] Social History Tobacco Use Types Packs/Day Years [...] on filedocumented in this encounter Care Teams Pit Supervisor Relationship Specialty Start Date End Date Adal Aparicio MD [address] [place] [phone] PCP - General Internal Medicine 07/17/15 06/16/21 Denny Baird [address] [place] [address] PCP - General Internal Medicine 06/17/21 Codi Abdi MD [address] [place] [address] Specialist Cardiology 11/26/22 documented as of this encounter
--- OUTSIDE RECORDS SUMMARY | 2025-03-24 18:55 | XMS_ITS | Encounter Summary ---
Author Organization [facility] Prior to 02/12/2024 Address [address] [place] [address] Care Team Providers Care Construction Ironworker Name Role Phone Denny Baird Primary Care Provider [phone] Codi Abdi MD Unavailable Reason for Visit * Reason Onset Date Comments TEST RESULTS 08/26/2021 Encounter Details Date Type Department Care Team Description 08/26/2021 Telephone OBGYN - [facility] [address] [place], [place] [phone] Ninoska Gallegos CNM TEST RESULTS Social History Tobacco Use Types Packs/Day Years [...] file Not on file Not on file COVID-19 Exposure Response Date Recorded In the last 10 days, have yo u been in contact with someone who was confirmed or suspected to have Coronavirus/COVID-19? No / Unsure 08/20/2021 2:42 PM EDT documented as of this encounter Miscellaneous Notes * Telephone Encounter - Anny Dodge L.P.N. - 09/04/2021 10:33 AM EDT Sally Gonzales M.A. 09/02/2021 ??2:16 PM EDT Back to Top Pt notified of repeat u/s in 3 mos to see if cyst resolves. * Telephone Encounter - Anny Dodge L.P.N. - 09/04/2021 10:33 AM EDT ----- Message from Ninoska Gallegos CNM sent at 08/26/2021 1:44 PM EDT ----- Please let her know she needs to have f/u imaging in 3 months on this small cyst to make sure it resolves * Telephone Encounter - Anny Dodge L.P.N. - 09/02/2021 2:00 PM EDT Left message for pt to call office. Ext [phone] * Telephone Encounter - Sally Gonzales M.A. - 08/26/2021 1:56 PM EDT Left message to call [facility] ACCOUNTING SPECIALIST ask for Sally/OB * Telephone Encounter - Sally Gonzales M.A. - 08/26/2021 1:56 PM EDT ----- Message from Ninoska Gallegos CNM sent at 08/26/2021 1:44 PM EDT ----- Please let her know she needs to have f/u imaging in 3 months on this small cyst to make sure it resolves documented in this encounter Plan of Treatment Not on file documented as of this encounter Visit Diagnoses Not on filedocumented in this encounter Care Teams Construction Ironworker Relationship Specialty Start Date End Date Denny Baird [address] [place] [address] PCP - General Internal Medicine 06/17/21 Codi Abdi MD [address] [place] [address] Specialist Cardiology 11/26/22 documented as of this encounter
--- OUTSIDE RECORDS SUMMARY | 2025-03-24 18:55 | XMS_ITS | Encounter Summary ---
Author Organization [employer] [employer] [facility] Prior to 02/12/2024 Address [address] [place] [address] Care Team Providers Care Chainstitch Tunnel Elastic Operator Name Role Phone Adal Aparicio MD Primary Care Provider [phone] Denny Baird Primary Care Provider [phone] Codi Abdi MD Unavailable Encounter Details Date Type Department Care Team Description 03/19/2018 Hospital Medical Records [address] [place] [phone] Donna Camarena MD Social History Tobacco Use Types Packs/Day Years [...] on filedocumented in this encounter Care Teams Chainstitch Tunnel Elastic Operator Relationship Specialty Start Date End Date Adal Aparicio MD [address] [place], [place] [phone] PCP - General Internal Medicine 07/17/15 06/16/21 Denny Baird [address] [place] [address] PCP - General Internal Medicine 06/17/21 Codi Abdi MD [address] [place] [address] Specialist Cardiology 11/26/22 documented as of this encounter
--- OUTSIDE RECORDS SUMMARY | 2025-03-24 18:55 | XMS_ITS | Encounter Summary ---
Author Organization [employer] [employer] [facility] Prior to 02/12/2024 Address [address] [place] [address] Care Team Providers Care Fire Code Inspector Name Role Phone Denny Baird Primary Care Provider [phone] Codi Abdi MD Unavailable Encounter Details Date Type Department Care Team Description 09/03/2023 [facility] Medical Records [address] [place] [address] Abstract, Provider Social History Tobacco Use Types Packs/Day Years [...] on filedocumented in this encounter Care Teams Fire Code Inspector Relationship Specialty Start Date End Date Denny Baird [address] [place] [address] PCP - General Internal Medicine 06/17/21 Codi Abdi MD [address] [place] [address] Specialist Cardiology 11/26/22 documented as of this encounter
--- OUTSIDE RECORDS SUMMARY | 2025-03-24 18:56 | XMS_ITS | Encounter Summary ---
Author Organization [employer] [facility] Prior to 02/12/2024 Address [address] [place] [address] Care Team Providers Care Packaging Supervisor Name Role Phone Adal Aparicio MD Primary Care Provider [phone] Denny Baird Primary Care Provider [phone] Codi Abdi MD Unavailable Reason for Visit * Reason Onset Date Comments medication problems 06/21/2020 Encounter Details Date Type Department Care Team Description 06/21/2020 Telephone Pulmonology - [place] [address] [facility] [address] [place] [address] Prashant Campos MD [address] [facility] [address] [place] [address] medication problems Social History Tobacco Use Types Packs/Day Years [...] Exposure Response Date Recorded In the last month, have you been in contact with someone who was confirmed or suspected to have Coronavirus / COVID-19? No / Unsure 06/19/2020 3:08 PM EST documented as of this encounter Miscellaneous Notes * Telephone Encounter - Prashant Campos MD - 06/25/2020 5:52 PM EDT If she is in Bre[place], keep it and forget Flovent. * Telephone Encounter - Samantha Westbrook M.A. - 06/22/2020 1:56 PM EST de * Telephone Encounter - Maria D Perez - 06/21/2020 4:22 PM EST Who is calling? A pharmacist: Pharmacy: [facility] Pharmacist Name: fax Pharmacy Name of the medication Flovent HFA [address] oral in What is the specific problem or interaction? Per fax received, states that this medication is stillnot covered by insurance and patient is also taking breo. Should she even be taking this? Please call and clarify. If the patient is having a problem with taking the med - how long has the problem been going on? 06.21.2020 documented in this encounter Plan of Treatment Not on file documented as of this encounter Visit Diagnoses Not on filedocumented in this encounter Care Teams Packaging Supervisor Relationship Specialty Start Date End Date Adal Aparicio MD [address] [place] [phone] PCP - General Internal Medicine 07/17/15 06/16/21 Denny Baird [address] [place] [address] PCP - General Internal Medicine 06/17/21 Codi Abdi MD [address] [place] [address] Specialist Cardiology 11/26/22 documented as of this encounter
--- OUTSIDE RECORDS SUMMARY | 2025-03-24 18:56 | XMS_ITS | Encounter Summary ---
Author Organization [email or web address] [facility] Prior to 02/12/2024 Address [address] [place] [address] Care Team Providers Care Cnc Lathe Machinist Name Role Phone Adal Aparicio MD Primary Care Provider [phone] Denny Baird Primary Care Provider [phone] Codi Abdi MD Unavailable Reason for Visit * Reason Onset Date Comments refill request 03/15/2021 Encounter Details Date Type Department Care Team Description 03/15/2021 Refill OBGYN - [place] [address] [place] [phone] Evgeny Bentley MD [address] [place] [address] [phone] refill request Social History Tobacco Use Types Packs/Day Years [...] have Coronavirus / COVID-19? No / Unsure 02/25/2021 10:34 AM EST documented as of this encounter Miscellaneous Notes * Telephone Encounter - Evgeny Bentley MD - 03/15/2021 5:56 PM EST Providing her a refill did not discontinue her control abruptly. But she should follow-up sooner than her annual exam -As per her history, I see a new documentation of migraines with aura. --- There is increased risk of estrogen-containing contraception with migraines with aura and recommendations will be to switch to an alternative. Reschedule an appointment soon as possible to discuss alternatives Thank you Evgeny Bentley MD * Telephone Encounter - Aliya Dumont R.N. - 03/15/2021 3:55 PM EST Last AG 05/31/2019. Next AG 07/16/2021. Patient with refill requests, after AG appointments made, then cancelled AG appointments after refill sent. Dates of Patient Request cancellations on 10/10/20, 01/07/21. Rx pended with 1 refill. Will route to provider. * Telephone Encounter - Marisela [place] - 03/15/2021 10:34 AM EST WHEN WAS THE PATIENTS LAST ANNUAL MECHANIC HELPER EXAM? 05/31/19 Does patient have an upcoming appointment? Yes 07/16/20 (THE MEDICATION REQUESTED IS ON THE MED LIST ABOVE) Did you check the Pharmacy information above?: YES Indicate how soon the patient needs the script: KENNEDY Patient would like script to be: E-PRESCRIBED/FAXED TO PHARMACY Is the doctor here today?: YES Can the message wait until the doctor returns?: NO Has the patient been told that the prescription will not be filled until the end of the day? NO [place] / [place] / Product Type: MEDICARE [id number] documented in this encounter Plan of Treatment Not on file documented as of this encounter Visit Diagnoses Diagnosis Pelvic pain Dysmenorrhea documented in this encounter Care Teams Cnc Lathe Machinist Relationship Specialty Start Date End Date Adal Aparicio MD [address] [place] [phone] PCP - General Internal Medicine 07/17/15 06/16/21 Denny Baird [address] [place] [phone] PCP - General Internal Medicine 06/17/21 Codi Abdi MD [address] [place] [phone] Specialist Cardiology 11/26/22 documented as of this encounter
--- OUTSIDE RECORDS SUMMARY | 2025-03-24 18:56 | XMS_ITS | Encounter Summary ---
Author Organization [employer] [facility] Prior to 02/12/2024 Address [address] [place] [address] Care Team Providers Care Hobbies And Crafts Sales Representative Name Role Phone Adal Aparicio MD Primary Care Provider [phone] Denny Baird Primary Care Provider [phone] Codi Abdi MD Unavailable Encounter Details Date Type Department Care Team Description 10/25/2020 Refill Pulmonology - [place] [address] [facility] [address] [place] [address] Prashant Campos MD [address] [facility] [address] [place] [address] Social History Tobacco Use Types Packs/Day Years [...] have Coronavirus / COVID-19? No / Unsure 09/26/2020 3:00 PM EDT documented as of this encounter Miscellaneous Notes * Telephone Encounter - Pascale Rivera - 10/25/2020 11:11 AM EDT Please advise documented in this encounter Plan of Treatment Not on file documented as of this encounter Visit Diagnoses Diagnosis Moderate persistent asthma without complication Unspecified asthma Abnormal CT of the chest Nonspecific (abnormal) findings on radiological and other examination of other intrathoracic organs JANETT (obstructive sleep apnea) Obstructive sleep apnea (adult) (pediatric) Former smoker Personal history of tobacco use, presenting hazards to health Allergic rhinitis due to pollen, unspecified seasonality PND (post-nasal drip) Postnasal drip Anxiety Anxiety state, unspecified documented in this encounter Care Teams Hobbies And Crafts Sales Representative Relationship Specialty Start Date End Date Adal Aparicio MD [address] [place] [address] PCP - General Internal Medicine 07/17/15 06/16/21 Denny Baird [address] [place] [address] PCP - General Internal Medicine 06/17/21 Codi Abdi MD [address] [place] [address] Specialist Cardiology 11/26/22 documented as of this encounter
--- OUTSIDE RECORDS SUMMARY | 2025-03-24 18:56 | XMS_ITS | Encounter Summary ---
Author Organization [facility] Prior to 02/12/2024 Address [address] [place] [address] Care Team Providers Care Education Program Coordinator Name Role Phone Adal Aparicio MD Primary Care Provider [phone] Denny Baird Primary Care Provider [phone] Codi Abdi MD Unavailable Encounter Details Date Type Department Care Team Description 09/07/2020 Hospital Medical Records [address] [place] [address] Barrett Rivera MD Social History Tobacco Use Types Packs/Day [...] have Coronavirus / COVID-19? No / Unsure 08/13/2020 3:35 PM EDT documented as of this encounter Plan of Treatment Not on file documented as of this encounter Visit Diagnoses Not on filedocumented in this encounter Care Teams Education Program Coordinator Relationship Specialty Start Date End Date Adal Aparicio MD [address] [place] [address] PCP - General Internal Medicine 07/17/15 06/16/21 Denny Baird [address] [place] [address] PCP - General Internal Medicine 06/17/21 Codi Abdi MD [address] [place] [address] Specialist Cardiology 11/26/22 documented as of this encounter
--- OUTSIDE RECORDS SUMMARY | 2025-03-24 18:56 | XMS_ITS | Encounter Summary ---
Author Organization [employer] [facility] Prior to 02/12/[address] [place] [address] Care Team Providers Care Process Mechanic Name Role Phone Denny Baird Primary Care Provider [phone] Codi Abdi MD Unavailable Reason for Visit * Reason Onset Date Comments Cough 05/14/2023 Wheezing 05/14/2023 Encounter Details Date Type Department Care Team Description 05/14/2023 Telephone Adult Medicine [address] [address] Denny Baird [address] [place] [address] [phone] Cough; Wheezing Social History Tobacco Use Types Packs/Day Years [...] on file documented as of this encounter Miscellaneous Notes * Telephone Encounter - Lena Cortez R.N. - 05/14/2023 9:28 AM EST Pt has had asthma and cough for 2 weeks . Not improving Pt has not tested for Covid No chest wall pain with deep breath and cough, feels SOB ( has asthma and rescue inhaler is having limited benefit ) , able to speak in full sentences and has no audible wheezing, cough is productivefor Sputum, denies fever , able to take PO with no difficulty, denies N/V/D, Advised home care following the Cough/ breathing problems Protocol. RN reinforced telephone consultation and advice. Reviewed with the patient the signs and symptoms to watch for that would require immediate attention. If symptoms change, worsen or increase in intensity, to call back immediately. Appointment with Luli thurston at 3;00 today * Telephone Encounter - Cheri Bentley - 05/14/2023 9:25 AM EST Symptoms patient is presenting: not feeling well for 2 weeks, no improvement Cough, wheezing, congestion Has not tested for covid For ALL patients calling to schedule any appointment (routine, sick visit, follow up, consult, etc.) in the outpatient setting please ask the following questions: ?? Do you have fever of higher than 101, sore throat with difficulty swallowing or severe shortnessof breath? NO If YES to any of these above symptoms, send a message to triage and do not book. Red dot. If no, an audio or video visit should be booked. ?? Have you had close contact with someone with Coronavirus in the last 14 days? NO ?? Have you traveled abroad? NO ?? Have you traveled recently to another state outside of [place], [place], [place], [place], [place], [place], [place]? NO o If yes, did you quarantine for 14 days or have a negative covid test? If yes to any of the above, patient is not to be scheduled in office until after 14 day quarantine or negative covid test. If pain or injury related was it due to an accident at work or from a motor vehicle accident? If yes, gather 3rd democrat insurance information Date of accident/Injury: How long has patient had these symptoms?: 2 weeks PCP: Denny Baird [place] / [place] / Product Type: MEDICARE [id number] documented in this encounter Plan of Treatment Not on file documented as of this encounter Visit Diagnoses Not on filedocumented in this encounter Care Teams Process Mechanic Relationship Specialty Start Date End Date Denny Baird [address] [place] [address] PCP - General Internal Medicine 06/17/21 Codi Abdi MD [address] [place] [address] Specialist Cardiology 11/26/22 documented as of this encounter
--- OUTSIDE RECORDS SUMMARY | 2025-03-24 18:56 | XMS_ITS | Encounter Summary ---
Author Organization [employer] [facility] Prior to 02/12/[address] [place] [address] Care Team Providers Care Christian Science Reader Name Role Phone Denny Baird Primary Care Provider [phone] Codi Abdi MD Unavailable Encounter Details Date Type Department Care Team Description 12/01/2022 Orders Only Medical Records [address] [place] [address] Abstract, Provider Social History Tobacco Use Types [...] suspected to have Coronavirus/COVID-19? No / Unsure 12/01/2022 3:06 PM EDT documented as of this encounter Plan of Treatment Not on file documented as of this encounter Procedures Procedure Name Priority Date/Time Associated Diagnosis Comments OUTSIDE CT Routine 11/30/2022 OUTSIDE PLAIN FILM Routine 11/30/2022 documented in this encounter Results * OUTSIDE CT (11/30/2022) Provider Abstract RADIOLOGY * OUTSIDE PLAIN FILM (11/30/2022) Provider Abstract RADIOLOGY documented in this encounter Visit Diagnoses Not on filedocumented in this encounter Care Teams Christian Science Reader Relationship Specialty Start Date End Date Denny Baird [address] [place], [place] [phone] PCP - General Internal Medicine 06/17/21 Codi Abdi MD [address] [place], [place] [phone] Specialist Cardiology 11/26/22 documented as of this encounter
--- OUTSIDE RECORDS SUMMARY | 2025-03-24 18:56 | XMS_ITS | Encounter Summary ---
Author Organization [employer] [facility] Prior to 02/12/2024 Address [address] [place] [address] Care Team Providers Care Field Education Director Name Role Phone Adal Aparicio MD Primary Care Provider [phone] Denny Baird Primary Care Provider [phone] Codi Abdi MD Unavailable Reason for Visit * Reason Onset Date Comments Note, Other 02/20/2021 Encounter Details Date Type Department Care Team Description 02/20/2021 Telephone Pulmonology - [place] 175 [facility] [address] [place] [address] Natalie Barney APRN 175 [facility] [address] [place] [address] Note, Other Social History Tobacco Use Types Packs/Day Years [...] have Coronavirus / COVID-19? No / Unsure 02/20/2021 3:48 PM EST documented as of this encounter Plan of Treatment Not on file documented as of this encounter Visit Diagnoses Not on filedocumented in this encounter Care Teams Field Education Director Relationship Specialty Start Date End Date Adal Aparicio MD [address] [place] [address] PCP - General Internal Medicine 07/17/15 06/16/21 Denny Baird [address] [place] [address] PCP - General Internal Medicine 06/17/21 Codi Abdi MD [address] [place] [address] Specialist Cardiology 11/26/22 documented as of this encounter
--- OUTSIDE RECORDS SUMMARY | 2025-03-24 18:56 | XMS_ITS | Encounter Summary ---
Author Organization [facility] [employer] [facility] Prior to 02/12/2024 Address [address] [place] [address] Care Team Providers Care Enrollment Management Vice President Name Role Phone Adal Aparicio MD Primary Care Provider [phone] Denny Baird Primary Care Provider [phone] Codi Abdi MD Unavailable Encounter Details Date Type Department Care Team Description 09/25/2020 Refill Adult Urgent Care - [address] [address] Ava Palma PA [address] [place] [address] [phone] Social History Tobacco Use Types Packs/Day Years [...] encounter Miscellaneous Notes * Telephone Encounter - Adrienne Sharma C.M.A - 09/25/2020 10:15 AM EDT Lab Results Component Value Date NA 140 06/19/2020 K 4.0 06/19/2020 CO2 22 06/19/2020 CL 106 06/19/2020 BUN 16 06/19/2020 CREAT 0.59 06/19/2020 GLU 75 06/19/2020 CA 9.5 06/19/2020 GFR > 60 06/19/2020 MIGUEL F/U appt documented in this encounter Plan of Treatment Not on file documented as of this encounter Visit Diagnoses Not on filedocumented in this encounter Care Teams Enrollment Management Vice President Relationship Specialty Start Date End Date Adal Aparicio MD [address] [place] [address] PCP - General Internal Medicine 07/17/15 06/16/21 Denny Baird [address] [place] [address] PCP - General Internal Medicine 06/17/21 Codi Abdi MD [address] [place] [address] Specialist Cardiology 11/26/22 documented as of this encounter
--- OUTSIDE RECORDS SUMMARY | 2025-03-24 18:56 | XMS_ITS | Encounter Summary ---
Author Organization [employer] [facility] Prior to 02/12/[address] [place] [address] Care Team Providers Care Mortgage Loan Funder Name Role Phone Name, Matthew COTA Primary Care Provider [facility] Adal Dickinson MD Primary Care Provider [phone] Denny Baird Primary Care Provider [phone] Codi Abdi MD Unavailable Encounter Details Date Type Department Care Team Description 08/26/2014 C Wpf Developer Report Medical Records [address] [place] [address] Rachel Barbosa MD Social History Tobacco Use Types Packs/Day Years Used Date Smoking Tobacco: Former Smokeless Tobacco: Never Alcohol Use Standard Drinks/Week Comments No 0 (1 standard drink = 0.6 oz pur e alcohol) Alcohol Habits Answer Date Recorded How often [...] on filedocumented in this encounter Care Teams Mortgage Loan Funder Relationship Specialty Start Date End Date Name, MD Matthew PCP - General Internal Medicine 03/23/12 07/16/15 Adal Aparicio MD [address] [place] [address] PCP - General Internal Medicine 07/17/15 06/16/21 Denny Baird [address] [place] [address] PCP - General Internal Medicine 06/17/21 Codi Abdi MD [address] [place] [address] Specialist Cardiology 11/26/22 documented as of this encounter
--- OUTSIDE RECORDS SUMMARY | 2025-03-24 18:56 | XMS_ITS | Encounter Summary ---
Author Organization [employer] [facility] Prior to 02/12/2024 Address [address] [place] [address] Care Team Providers Care Business Project Manager Name Role Phone Adal Aparicio MD Primary Care Provider [phone] Denny Baird Primary Care Provider [phone] Codi Abdi MD Unavailable Reason for Visit * Reason Onset Date Comments Mychart Rx Refill 10/25/2020 Encounter Details Date Type Department Care Team Description 10/25/2020 Refill Adult Medicine [address] [address] Rigo Preston NP Mychart Rx Refill Social History Tobacco Use Types Packs/Day Years [...] encounter Miscellaneous Notes * Telephone Encounter - Bettye Esteban M.A. - 10/25/2020 11:47 AM EDT Lab Results Component Value Date NA 140 06/19/2020 K 4.0 06/19/2020 CO2 22 06/19/2020 CL 106 06/19/2020 BUN 16 06/19/2020 CREAT 0.59 06/19/2020 GLU 75 06/19/2020 CA 9.5 06/19/2020 GFR > 60 06/19/2020 Pending appt with pcp 02/01/21 documented in this encounter Plan of Treatment Not on file documented as of this encounter Visit Diagnoses Not on filedocumented in this encounter Care Teams Business Project Manager Relationship Specialty Start Date End Date Adal Aparicio MD [address] [place] [address] PCP - General Internal Medicine 07/17/15 06/16/21 Denny Baird [address] [place] [address] PCP - General Internal Medicine 06/17/21 Codi Abdi MD [address] [place] [address] Specialist Cardiology 11/26/22 documented as of this encounter
--- OUTSIDE RECORDS SUMMARY | 2025-03-24 18:56 | XMS_ITS | Encounter Summary ---
Author Organization Terri [employer] [facility] Prior to 02/12/2024 Address [address] [place] [address] Care Team Providers Care Guide Foreign Tour Name Role Phone Adal Aparicio MD Primary Care Provider [phone] Denny Baird Primary Care Provider [phone] Codi Abdi MD Unavailable Encounter Details Date Type Department Care Team Description 09/10/2020 Hospital Medical Records [address] [place] [address] Benito Johnson MD Social History Tobacco Use Types Packs/Day [...] on filedocumented in this encounter Care Teams Guide Foreign Tour Relationship Specialty Start Date End Date Adal Aparicio MD [address] [place] [address] PCP - General Internal Medicine 07/17/15 06/16/21 Denny Baird [address] [place] [address] PCP - General Internal Medicine 06/17/21 Codi Abdi MD [address] [place] [address] Specialist Cardiology 11/26/22 documented as of this encounter
--- OUTSIDE RECORDS SUMMARY | 2025-03-24 18:56 | XMS_ITS | Encounter Summary ---
Author Organization [employer] [facility] [place] Prior to 02/12/2024 Address [address] [place] [address] Care Team Providers Care Manager Ct Name Role Phone Adal Aparicio MD Primary Care Provider [phone] Denny Baird Primary Care Provider Codi Abdi MD Unavailable Reason for Visit * Reason Onset Date Comments refill request 04/18/2020 Encounter Details Date Type Department Care Team Description 04/18/2020 Refill Pulmonology - [place] 175 [facility] [address] [place] [address] Prashant Campos MD 175 [facility] [address] [place] [address] refill request Social History Tobacco Use Types [...] or suspected to have Coronavirus / COVID-19? Unable to assess 04/19/2020 8:12 AM EST documented as of this encounter Miscellaneous Notes * Telephone Encounter - Diann Awad - 04/18/2020 9:39 AM EST Patient would like script to be: E-PRESCRIBED/FAXED TO PHARMACY WHEN WAS THE PATIENT'S LAST APPOINTMENT WITH THE PRESCRIBING PROVIDER? 09/22/19 Does patient have an upcoming appointment? Yes 04/19/20 (THE MEDICATION REQUESTED IS ON THE MED LIST ABOVE) All of the medications requested were on the CURRENT MEDS list Did you check the Pharmacy information above?: YES Patient wants: 30 -day supply Is this a mail order prescription request ? NO Patients current insurance carrier is: [place] / [place] / Product Type: MEDICARE [id number] documented in this encounter Plan of Treatment Not on file documented as of this encounter Visit Diagnoses Not on filedocumented in this encounter Care Teams Manager Ct Relationship Specialty Start Date End Date Adal Aparicio MD [address] [place] [address] PCP - General Internal Medicine 07/17/15 06/16/21 Denny Baird [address] [place] [address] PCP - General Internal Medicine 06/17/21 Codi Abdi MD [address] [place] [address] Specialist Cardiology 11/26/22 documented as of this encounter
--- OUTSIDE RECORDS SUMMARY | 2025-03-24 18:56 | XMS_ITS | Encounter Summary ---
Author Organization [employer] [facility] Prior to 02/12/[address] [place] [address] Care Team Providers Care Sediment Remediation Consultant Name Role Phone Name, Matthew COTA Primary Care Provider Adal Robertson MD Primary Care Provider [phone] Denny Baird Primary Care Provider [phone] Codi Abdi MD Unavailable Encounter Details Date Type Department Care Team Description 12/04/2014 Business Doc Medical Records [address] [place] [address] Abstract, Provider Social History Tobacco Use Types [...] on filedocumented in this encounter Care Teams Sediment Remediation Consultant Relationship Specialty Start Date End Date Name, MD Matthew PCP - General Internal Medicine 03/23/12 07/16/15 Adal Aparicio MD [address] [place] [address] PCP - General Internal Medicine 07/17/15 06/16/21 Denny Baird [address] [place] [address] [phone] PCP - General Internal Medicine 06/17/21 Codi Abdi MD [address] [place] [address] Specialist Cardiology 11/26/22 documented as of this encounter
--- OUTSIDE RECORDS SUMMARY | 2025-03-24 18:56 | XMS_ITS | Encounter Summary ---
Author Organization [employer] [facility] Prior to 02/12/[address] [place] [address] Care Team Providers Care Editorial Project Manager Name Role Phone Name, Matthew COTA Primary Care Provider Adal Robertson MD Primary Care Provider [phone] Denny Baird Primary Care Provider [phone] Codi Abdi MD Unavailable Reason for Visit * Reason Onset Date Comments TEST RESULTS 07/11/2015 Encounter Details Date Type Department Care Team Description 07/11/2015 Telephone OBGYN - [address] [phone] Vicki England CNM TEST RESULTS Social History Tobacco Use [...] encounter Miscellaneous Notes * Telephone Encounter - Vicki England CNM - 07/11/2015 1:21 PM EDT Telephone Information: [facility] re: test results and plan of care documented in this encounter Plan of Treatment Not on file documented as of this encounter Visit Diagnoses Not on filedocumented in this encounter Care Teams Editorial Project Manager Relationship Specialty Start Date End Date Name, MD Matthew PCP - General Internal Medicine 03/23/12 07/16/15 Adal Aparicio MD [address] [place] [address] PCP - General Internal Medicine 07/17/15 06/16/21 Denny Baird [address] [place] [address] PCP - General Internal Medicine 06/17/21 Codi Abdi MD [address] [place] [address] Specialist Cardiology 11/26/22 documented as of this encounter
--- OUTSIDE RECORDS SUMMARY | 2025-03-24 18:56 | XMS_ITS | Encounter Summary ---
Author Organization [employer] [facility] Prior to 02/12/[address] [place] [address] Care Team Providers Care Cabin Cleaner Name Role Phone Name, Matthew COTA Primary Care Provider Adal Robertson MD Primary Care Provider [phone] Denny Baird Primary Care Provider [phone] Codi Abdi MD Unavailable Encounter Details Date Type Department Care Team Description 09/26/2013 Orders Only Medical Records [address] [place] [address] Aris Hernandez MD Social History Tobacco Use Types Packs/Day [...] Name Priority Date/Time Associated Diagnosis Comments OUTSIDE LAB Routine 09/23/2013 documented in this encounter Results * OUTSIDE LAB (09/23/2013) Aris Hernandez MD LAB documented in this encounter Visit Diagnoses Not on filedocumented in this encounter Care Teams Cabin Cleaner Relationship Specialty Start Date End Date Name, MD Matthew PCP - General Internal Medicine 03/23/12 07/16/15 Adal Aparicio MD [address] [place] [address] PCP - General Internal Medicine 07/17/15 06/16/21 Denny Baird [address] [place] [address] [phone] PCP - General Internal Medicine 06/17/21 Codi Abdi MD [address] [place] [address] Specialist Cardiology 11/26/22 documented as of this encounter
--- OUTSIDE RECORDS SUMMARY | 2025-03-24 18:56 | XMS_ITS | Encounter Summary ---
Author Organization [facility] Prior to 02/12/2024 Address [address] [place] [address] Care Team Providers Care Security Sales Consultant Name Role Phone Adal Aparicio MD Primary Care Provider [phone] Denny Baird Primary Care Provider [phone] Cdoi Abdi MD Unavailable Encounter Details Date Type Department Care Team Description 03/17/2018 Hospital Medical Records [address] [place] [address] Adis Lyons Social History Tobacco Use Types Packs/Day Years [...] on filedocumented in this encounter Care Teams Security Sales Consultant Relationship Specialty Start Date End Date Adal Aparicio MD [address] [place] [address] [phone] PCP - General Internal Medicine 07/17/15 06/16/21 Denny Baird [address] [place] [address] PCP - General Internal Medicine 06/17/21 Codi Abdi MD [address] [place] [address] Specialist Cardiology 11/26/22 documented as of this encounter
--- OUTSIDE RECORDS SUMMARY | 2025-03-24 18:56 | XMS_ITS | Encounter Summary ---
Author Organization Terri [email or web address] [facility] Prior to 02/12/2024 Address [address] [place] [address] Care Team Providers Care Scheduling Assistant Name Role Phone Denny Baird Primary Care Provider [phone] Codi Abdi MD Unavailable Encounter Details Date Type Department Care Team Description 01/15/2022 Transfer Records External Campbell Lara PA-C Social History Tobacco Use Types Packs/Day Years [...] suspected to have Coronavirus/COVID-19? No / Unsure 12/26/2021 10:13 AM EDT documented as of this encounter Plan of Treatment Not on file documented as of this encounter Visit Diagnoses Not on filedocumented in this encounter Care Teams Scheduling Assistant Relationship Specialty Start Date End Date Denny Baird [address] [place] [address] PCP - General Internal Medicine 06/17/21 Codi Abdi MD [address] [place] [address] Specialist Cardiology 11/26/22 documented as of this encounter
--- OUTSIDE RECORDS SUMMARY | 2025-03-24 18:56 | XMS_ITS | Encounter Summary ---
Author Organization [employer] [facility] Prior to 02/12/[address] [place] [address] Care Team Providers Care Executive Asst Name Role Phone Name, Matthew COTA Primary Care Provider Adal Robertson MD Primary Care Provider [phone] Denny Baird Primary Care Provider [phone] Codi Abdi MD Unavailable Reason for Visit * Reason Onset Date Comments Back Pain 09/07/2014 Encounter Details Date Type Department Care Team Description 09/07/2014 Telephone Adult [address] [address] Matthew Cobb MD Back Pain Social History Tobacco Use Types Packs/Day Years [...] on filedocumented in this encounter Care Teams Executive Asst Relationship Specialty Start Date End Date Matthew Cobb MD PCP - General Internal Medicine 03/23/12 07/16/15 Adal Aparicio MD [address] [place] [address] PCP - General Internal Medicine 07/17/15 06/16/21 Denny Baird [address] [place] [address] [phone] PCP - General Internal Medicine 06/17/21 Codi Abdi MD [address] [place] [address] Specialist Cardiology 11/26/22 documented as of this encounter
--- OUTSIDE RECORDS SUMMARY | 2025-03-24 18:56 | XMS_ITS | Encounter Summary ---
Author Organization [facility] Prior to 02/12/2024 Address [address] [place] [address] Care Team Providers Care Value Analysis Coordinator Name Role Phone Name, Matthew COTA Primary Care Provider Unavailabl e Yumiko Gregorio Primary Care Provider Unavailabl e Name, Matthew COTA Primary Care Provider Unavailabl e Adal Aparicio MD Primary Care Provider [phone] Denny Baird Primary Care Provider [phone] Codi Abdi MD Unavailable Reason for Visit * Reason Onset Date Comments radiology 07/14/2011 Encounter Details Date Type Department Care Team Description 07/14/2011 Telephone OBN - [address] [address] Denisha Mckeon MD radiology Social History Tobacco Use Types Packs/Day Years Used Date Smoking Tobacco: Former Smokeless Tobacco: Never Alcohol Use Standard Drinks/Week Comments Yes 0 (1 standard drink = 0.6 oz pur e alcohol) occ Alcohol Habits Answer Date Recorded How often [...] encounter Miscellaneous Notes * Telephone Encounter - Donna Quiroz - 07/14/2011 4:48 PM EDT Patient called to book an 8 week ultrasound but there are no orders. Said you told her to call us to book it, please put orders in. documented in this encounter Plan of Treatment Not on file documented as of this encounter Visit Diagnoses Diagnosis Threatened Threatened , unspecified as to episode of care documented in this encounter Care Teams Value Analysis Coordinator Relationship Specialty Start Date End Date Reza, MD Matthew PCP - General 11/12/10 02/05/12 Yumiko Gregorio PCP - General Internal Medicine 02/06/12 03/22/12 Name, MD Matthew PCP - General Internal Medicine 03/23/12 07/16/15 Adal Aparicio MD [address] [place] [id number] PCP - General Internal Medicine 07/17/15 06/16/21 Denny Baird [address] [place] [id number] PCP - General Internal Medicine 06/17/21 Codi Abdi MD [address] [place] [id number] Specialist Cardiology 11/26/22 documented as of this encounter
--- OUTSIDE RECORDS SUMMARY | 2025-03-24 18:56 | XMS_ITS | Encounter Summary ---
Author Organization [facility] Prior to 02/12/2024 Address [address] [place] [address] Care Team Providers Care Dye Padder Operator Name Role Phone Denny Baird Primary Care Provider [phone] Codi Abdi MD Unavailable Reason for Visit * Reason Onset Date Comments Faxed Refill 09/03/2021 Encounter Details Date Type Department Care Team Description 09/03/2021 Refill Internal Medicine - [place] [facility], [address] [address] Natalie Barney APRN [address] [phone] Faxed Refill Social History Tobacco Use Types Packs/Day [...] suspected to have Coronavirus/COVID-19? No / Unsure 09/03/2021 10:54 AM EDT documented as of this encounter Miscellaneous Notes * Telephone Encounter - Patricia Jordan - 09/03/2021 9:05 AM EDT Patient would like script to be: E-PRESCRIBED/FAXED TO PHARMACY WHEN WAS THE PATIENT'S LAST APPOINTMENT IN ADULT MEDICINE? WHEN WAS THE LAST TIME THE PATIENT SAW THEIR PCP? Same as above Does patient have an upcoming appointment? Yes (THE MEDICATION REQUESTED IS ON THE MED LIST ABOVE) All of the medications requested were on the CURRENT MEDS list Did you check the Pharmacy information above?: YES Patient wants: 30 -day supply Is this a mail order prescription request ? NO If the refill is from a FAXED refill request what is the RX # listed on the fax? N/A Patients current insurance carrier is: [place] / [place] / Product Type: MEDICARE [id number] documented in this encounter Plan of Treatment Not on file documented as of this encounter Visit Diagnoses Diagnosis Moderate persistent asthma with acute exacerbation Cough productive of yellow sputum documented in this encounter Care Teams Dye Padder Operator Relationship Specialty Start Date End Date Denny Baird [address] [place], [place] [id number] PCP - General Internal Medicine 06/17/21 Codi Abdi MD [address] [place] [address] Specialist Cardiology 11/26/22 documented as of this encounter
--- OUTSIDE RECORDS SUMMARY | 2025-03-24 18:56 | XMS_ITS | Encounter Summary ---
Author Organization [facility] Prior to 02/12/2024 Address [address] [place] [address] Care Team Providers Care Pilot Safety Inspector Name Role Phone Adal Aparicio MD Primary Care Provider [phone] Denny Baird Primary Care Provider [phone] Codi Abdi MD Unavailable Reason for Visit * Reason Onset Date Comments Faxed Order 07/25/2015 Encounter Details Date Type Department Care Team Description 07/25/2015 Telephone Adult Medicine [address] [id number] Adal Aparicio MD [address] [place] [address] [phone] Faxed Order Social History Tobacco Use Types Packs/Day Years [...] encounter Miscellaneous Notes * Telephone Encounter - Biju Guidry - 07/25/2015 10:05 AM EDT FAXED ORDERS IN [place]. documented in this encounter Plan of Treatment Not on file documented as of this encounter Visit Diagnoses Not on filedocumented in this encounter Care Teams Pilot Safety Inspector Relationship Specialty Start Date End Date Adal Aparicio MD [address] [place] [id number] PCP - General Internal Medicine 07/17/15 06/16/21 Denny Baird [address] [place] [phone] PCP - General Internal Medicine 06/17/21 Codi Abdi MD [address] [place] [id number] Specialist Cardiology 11/26/22 documented as of this encounter
--- OUTSIDE RECORDS SUMMARY | 2025-03-24 18:56 | XMS_ITS | Encounter Summary ---
Author Organization [facility] Prior to 02/12/2024 Address [address] [place] [address] Care Team Providers Care Line Up Worker Name Role Phone Adal Aparicio MD Primary Care Provider [phone] Denny Baird Primary Care Provider [phone] Codi Abdi MD Unavailable Encounter Details Date Type Department Care Team Description 01/28/2018 Release of Information Medical Records [address] [place] [id number] Abstract, Provider Social History Tobacco Use Types [...] on filedocumented in this encounter Care Teams Line Up Worker Relationship Specialty Start Date End Date Adal Aparicio MD [address] [place] [phone] PCP - General Internal Medicine 07/17/15 06/16/21 Denny Baird [address] [place] [address] PCP - General Internal Medicine 06/17/21 Codi Abdi MD [address] [place] [address] Specialist Cardiology 11/26/22 documented as of this encounter
== END 2025-03-24 13:26 | disposition home or self-care (01) ==
LOC: HO.NEURO 13:25
PROVIDERS: PCP Internal Medicine; Visit Provider Nurse Practitioner Family
DX: R20.0 Anesthesia of skin (principal); R25.2 Cramp and spasm; R25.1 Tremor, unspecified
CPT/HCPCS: 95886; 95911

== ENCOUNTER → 2025-03-24 13:28 | Outpatient (BNV) | payer OTHER, SELFPAY | PROVIDERS: PCP Internal Medicine; Visit Provider Physical Medicine & Rehabilitation | DX: R20.2 Paresthesia of skin (principal); R20.0 Anesthesia of skin | CPT/HCPCS: 95886; 95911 ==